=== PATIENT | male | born 1940 | race Caucasian/White ===

== ENCOUNTER 2017-06-17 10:30 | Outpatient (RCR) | payer MEDICARE, OTHER ==
[2016-07-05 13:51] VITALS: BMI 22.5
--- NOTE | 2017-04-30 14:40 | PT INITIAL EVALUATION ---
MEDICAL DIAGNOSIS: Right Hip and Lower Extremity Pain, Multiple Myeloma TREATMENT DIAGNOSIS: Right Hip and Lower Extremity Pain, Multiple Myeloma DATE OF ONSET: 04/15/17 SUBJECTIVE: Shruti Kramer" Alexander is a 76 year-old male presenting to physical therapy following onset of R leg and hip pain lasting over a 1 month that radiates down his R leg to the level of the foot. Pt reports that pain is currently rated as a 3/10 and is always present. Pain is increased with movement and decreased with rest and heat. Pain is worse at 10/10 and he frequently wears a pain relief patch on his R hip. Pain is typically in the posterior R hip but will radiate in the back of the R leg, as well as into the groin, and to the side and back or R foot. Pt is also undergoing treatment for multiple myeloma and has been undergoing chemotherapy treatment since July resulting in neuropathy in B feet>hands. Pt denies any back pain but has a history of frequent mobilization with his chiropractor. Pt reports that when the pain is really bad he noticed that his foot will drop with walking resulting in him tripping. REHAB PROBLEM LIST: Increased Pain Decreased ROM Decreased Strength Impaired Transfers Decreased Endurance Decreased Function Decreased ADL's Decreased Mobility Decreased Gait PREVIOUS MEDICAL HISTORY: See EMR OBJECTIVE: Posture: Posture significant for R thoracic scoliosis. ROM: Lumbar ROM: flexion-full with pain in R hip, ext-min/mod restrictions without pain, L SB full with pain on L side, R SB full with no pain, R rotation moderate limitations without pain, L rot full without pain. B Hip ROM: WFL Strength: B LE MMT: Hip: flexion B 5/5, ext L 4/5 R 3+/5, abd L 4+/5, R 4/5 with pain, add B 4+/5. Knee: ext: L 5/5, R 4+/5, flexion L 4+/5, R 4/5. Ankle" PF B 5/5, DF R 3+/5, L 5/5 Other Objective Findings: FACT-G: PWB: , SWB: , EWB: , FWB: , Total 104/108 ECOG Performance Status: Grade 2 ASSESSMENT: Pt shows signs and symptoms consistent with neural impingement in the posterior hip likely in the piriformis musculature resulting in decreased strength and pain as listed in the above impairments. Physical therapy is indicated to address these deficits to improve pt functioning in ADL's as well as decrease complications with ongoing oncological care. Short Term Goals In 2 weeks pt will decrease hip and back pain to <2/10 with ADL's for improved functional mobility. In 4 weeks pt will improve R LE strength to >4 /5 in all major muscle groups for improved functional ambulation, mobility and performance of ADL's In 2 months pt will maintain FACT-G score of >95 indicating maintenance of wellbeing. In 4 months pt will maintain FACT-G score of >95 indicating maintenance of wellbeing. Patient's Goals Decrease pain, improve strength and function. PLAN: Patient to be seen for Manual Therapy/STM/MET Strengthening/condition Ice/Heat Range of Motion Spinal Stabilization Ultrasound Work Hardening/Cond Stretching Iontophoresis Neuromuscular Re-ed Closed Chain Program Electrical Stim Posture/Body mechanics Gait Trg/Balance Trg Biofeedback Home Exercise Program Mech./Manual Traction Therapeutic Activities Pelvic Floor 1x/Week for 4 Months If you have any questions, comments, or concerns about this report or plan, please contact me at . Thank you, Lynette Lacy, PT, DPT, CLT MTDD
--- NOTE | 2017-05-27 13:11 | PT PLAN OF CARE ---
Physician: MATTY Lofton Patient is being seen: 1x/MO Therapist: Lynette Lacy, PT, DPT, CLT Medical Diagnosis: Right Hip and Lower Extremity Pain, Multiple Myeloma Treatment Diagnosis: Right Hip and Lower Extremity Pain, Multiple Myeloma Date of Onset: 04/15/17 Date of Initial Evaluation: 04/29/17 Date patient was last seen: 05/27/17 Number of treatments: 3 Number of cancellations/No shows: 0 INTERVENTIONS: Manual Therapy/STM/MET Strengthening/condition Ice/Heat Range of Motion Spinal Stabilization Ultrasound Work Hardening/Cond Stretching Iontophoresis Neuromuscular Re-ed Closed Chain Program Electrical Stim Posture/Body mechanics Gait Trg/Balance Trg Biofeedback Home Exercise Program Mech./Manual Traction Therapeutic Activities Pelvic Floor GOALS: In 2 weeks pt will decrease hip and back pain to <2/10 with ADL's for improved functional mobility. MET In 4 weeks pt will improve R LE strength to >4 /5 in all major muscle groups for improved functional ambulation, mobility and performance of ADL's In 2 months pt will maintain FACT-G score of >95 indicating maintenance of wellbeing. MET In 4 months pt will maintain FACT-G score of >95 indicating maintenance of wellbeing. In Progress PATIENT'S GOAL: Decrease pain, improve strength and function. Status of Patient's Goals: In Progress Patient Compliance: Excellent Prognosis: Good Reasons for continuing therapy: Lashay shows maintenance of no pain status with performance of HEP. Pt reports lingering neuropathy symptoms in feet only which was improved following exercise and balance exercises. Pt shows improved functional well-being with decreased overall side-effects with improvements in FACT-G scores. Pt continue with HEP and be evaluated in by PT in 1 month for maintenance of status. Posture: Posture significant for R thoracic scoliosis. ROM: Lumbar ROM: full without pain B Hip ROM: WFL Strength: B LE MMT: Hip: flexion B 5/5, ext L 4/5 R 4/5, abd L 4+/5, R 4/5 with pain, add B 4+/5. Knee: ext: L 5/5, R 4+/5, flexion L 4+/5, R 4/5. Ankle" PF B 5/5, DF R 3+/5, L 5/5 If you have any questions or concerns, please feel free to contact me at . Thank you, Lynette Lacy, PT, DPT, CLT MTDD
[~2017-06-17 10:30] MED LIST: ACYC-50 PO; ALLO100T70 PO; ASPI-1471 PO; ASPI81TA94 PO; BACL-1 PO; CHLO25TA19 PO; CYCL50CA PO; DEX4 PO; DEXA2TAB7 PO; LEVO500T83 PO; LORA-1455 PO; LOVA20TA99 PO; METF-410 PO; MULT-27 PO; MULT1TAB64 PO; ONDA8TAB94 PO; OXYGENHOME INH; PYRI100T57 PO; TRIA15CR40 TP
--- NOTE | 2017-06-17 13:26 | PT PLAN OF CARE ---
Physician: MATTY Lofton Patient is being seen: 2x/MO Therapist: Lynette Lacy, PT, DPT, CLT Medical Diagnosis: Right Hip and Lower Extremity Pain, Multiple Myeloma Treatment Diagnosis: Right Hip and Lower Extremity Pain, Multiple Myeloma Date of Onset: 04/15/17 Date of Initial Evaluation: 04/29/17 Date patient was last seen: 06/17/17 Number of treatments: 4 Number of cancellations/No shows: 0 INTERVENTIONS: Manual Therapy/STM/MET Strengthening/condition Ice/Heat Range of Motion Spinal Stabilization Ultrasound Work Hardening/Cond Stretching Iontophoresis Neuromuscular Re-ed Closed Chain Program Electrical Stim Posture/Body mechanics Gait Trg/Balance Trg Biofeedback Home Exercise Program Mech./Manual Traction Therapeutic Activities Pelvic Floor GOALS: In 2 weeks pt will decrease hip and back pain to <2/10 with ADL's for improved functional mobility. MET In 4 weeks pt will improve R LE strength to >4 /5 in all major muscle groups for improved functional ambulation, mobility and performance of ADL's. MET In 2 months pt will maintain FACT-G score of >95 indicating maintenance of wellbeing. MET In 4 months pt will maintain FACT-G score of >95 indicating maintenance of wellbeing. MET PATIENT'S GOAL: Decrease pain, improve strength and function. Status of Patient's Goals: 4/4 Goals MET Patient Compliance: Excellent Prognosis: Good Reasons for discharge from therapy: Williams Bahena" is to discharge from physical therapy at this time secondary to completion of oncological treatment as well as completion of 4/4 functional therapy goals. Pt is no longer having any back pain. At this time pt feels that he is back to his baseline function with additional improvements in strength of R ankle DF with neural return. Lashay will continue with his HEP to maintain functional status through survivorship. Posture: Posture significant for R thoracic scoliosis. ROM: Lumbar ROM: full without pain B Hip ROM: WFL Strength: B LE MMT: Hip: flexion B 5/5, ext B 5/5, abd B 4+/5, add B 5/5. Knee: ext: B 5/5, flexion: B 4+/5. Ankle: PF: B 5/5, DF R 4/5, L 5/5 Outcome Measures: FACT-G: PWB: , SWB: , EWB: , FWB: , Total : 107/108 If you have any questions or concerns, please feel free to contact me at . Thank you, Lynette Lacy, PT, DPT, CLT MTDD
[2017-06-17] MEDS ORDERED: LENA10CA4 PO ×2 (14:11→14:23)
== END 2017-06-17 13:48 | disposition home or self-care (01) ==
LOC: PT 10:30
PROVIDERS: ATTEND Nurse Practitioner Family
DX: M25.551 Pain in right hip (principal); M62.81 Muscle weakness (generalized); E88.09 Other disorders of plasma-protein metabolism, not elsewhere classified; C90.02 Multiple myeloma in relapse; D64.9 Anemia, unspecified
CPT/HCPCS: 97162

== ENCOUNTER → 2017-07-29 | Outpatient (CLI) | payer MEDICARE, OTHER ==
[2016-07-05 13:51] VITALS: BMI 22.5
[~2017-07-29] MED LIST changes: +LENA10CA4 PO; +TRAM-627 PO
== END ==
LOC: LAB 08:30
PROVIDERS: ATTEND Internal Medicine
DX: E78.00 Pure hypercholesterolemia, unspecified (principal); E11.9 Type 2 diabetes mellitus without complications
CPT/HCPCS: 36415; 82465; 83036; 83718; 84478

== ENCOUNTER 2017-08-26 09:35 | Outpatient (RCR) | payer MEDICARE, OTHER ==
[2016-07-05 13:51] VITALS: Ht 182.9 cm; Wt 84.4 kg
[2017-06-10 10:25] VITALS: BP 111/63
--- NOTE | 2017-06-10 11:13 | ONC Progress Note - NP.Halsey ---
Patient History Date of Service Jun 10, 2017 Reason For Visit/HPI Patient is seen in the clinic today for follow-up of his multiple myeloma. Patient is currently on CyBorD cycle 12 today 15 today. He receives Zometa on . Patient previously reported that he was having increased numbness and tingling in his lower extremities bilateral but today reports that this is improved as he increases his fluid intake. Patient has pain in his right hip off and on but as long as he continues to exercise he reports that it feels relatively well. He denies numbness and tingling in his right hand today as he previously has had. Patient was encouraged to start vitamin B 6 100 mg twice a day and received medication but has not started it yet. I did review instructions with him today. Overall he is feeling relatively well. Labs were reviewed with Dr. Damico today and I believe it is time to consider maintenance therapy as patient has relatively plateaued and his kappa lambda light chain is in the normal limit. Problem List (1) Multiple myeloma Oncology History he patient is a 76-year-old male who had history of emphysema and hypercholesterolemia. He had a normal CBC in July 2014. The patient was found lately to have anemia. His blood count on April 15, 2016 showed white count 7.1, hemoglobin 10.9, hematocrit 33.3%, platelets 272,000 and MCV normal at 90. His serum creatinine was 1.71 at that time and his glomerular filtration rate was 39 mL/min. Soluble transferrin receptor assay was normal at 4.3. Serum iron was 62. TIBC was 261. Iron saturation 23.8. Ferritin was 139. So, all his iron studies were within the normal range. EPO level was mildly elevated at 47; red cell folate was normal at 1252; serum folate was normal at more than 22. B12 was 360. Methylmalonic acid assay was normal at 0.25. Haptoglobin was high at 287. Repeat CBC showed hemoglobin 11.2, hematocrit 33, platelets 246,000, white count 7.3. Serum protein electrophoresis showed monoclonal protein of 1.95, but unfortunately no immunofixation was done. Bone marrow aspiration biopsy done on June 25, 2016 came back positive for lambda restricted plasmocytosis compatible with plasma cell myeloma with 20 to 40% of the core bone marrow biopsy positive for plasma cells. FISH for myeloma came back positive for 4p-, +5, 11q+, -13, 14q-, 16q-, and 17 adrian+. Skeletal bone survey done on June 25, 2016 did reveal multiple lucencies in the greater trochanter of the left hip and a void lucency seen on the lateral view of the skull in the frontal region. The patient started treatment with CyBorD chemotherapy on July 23, 2016 and continues treatment. Patient continues to have a good response of his M spike, monoclonal protein peak with a decrease every month. Most recent SPEP is 0.4 g/ dL of the total is 0.59 g/dL Her free light chain is within normal limits, lambda free light chain within normal limits, K:L ratio within normal limits. Medical History Family History: Diabetes mellitus (DM) FATHER, , Age:76 MOTHER, Age:98 FH: Alzheimers disease SISTER, Age:75 FH: Parkinson's disease BROTHER, Age:77 FH: chronic lung disease requiring oxygen BROTHER, Age:73 (black lung, title examiner) FH: congestive heart failure MOTHER, Age:98 FH: gallbladder disease BROTHER, Age:77 SISTER SISTER FH: macular degeneration MOTHER, Age:98 Psychosocial History Social History The patient is with four children, three living. 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 He smokes about one pack a day for sixty years. He seldom drinks, once or twice per year. He denies any abuse of illicit drugs Smoking History: No (1/2 - 1 PPD FOR 60 YRS) Smoking Status: Former Smoker Exposure to Second Hand Smoke?: Yes Medications and Allergies Active Scripts Pyridoxine Hcl (VITAMIN B-6) 100 Mg Tablet, 100 MG PO BID, #60 TAB Prov:VIVEK NICHOLAS [facility]-, ONC 06/02/17 Dexamethasone 4 Mg Tab (DEXAMETHASONE 4 MG TAB) 4 Mg Tab, 4 TAB PO on days 1,8, 15,&22, #40 TAB 3 Refills 40 mg po on days 1, 8, 15, and 22 Prov:VIVEK NICHOLASP-, ONC 05/27/17 Cyclophosphamide (Cyclophosphamide) 50 Mg Capsule, 600 MG PO QWEEK, #48 CAPSULE 3 Refills Prov:VIVEK NICHOLAS [facility]-, ONC 05/27/17 Metformin Hcl (METFORMIN HCL) 500 Mg Tablet, 1 TAB PO QDAY, #90 TAB 3 Refills Prov:GRISEL REID MD 05/05/17 Baclofen (BACLOFEN) 10 Mg Tablet, 10 MG PO TID for Muscle Relaxant, #15 TAB Prov:VIVEK NICHOLAS [employer], ONC 04/15/17 Triamcinolone Acetonide 0.1% Cr 15 Gm Tube (TRIAMCINOLONE ACETONIDE 0.1% CREAM) 15 Gm Cream..g., 1 YOLY TP BID Y for Psoriasis, #1 TUBE 5 Refills Prov:GRISEL REID MD 03/18/17 Allopurinol (ALLOPURINOL) 100 Mg Tablet, 1 TAB PO QDAY, #30 TAB 6 Refills Prov:GRISEL REID MD 02/11/17 Acyclovir (ACYCLOVIR) 400 Mg Tablet, 1 TAB PO BID, #60 TAB 6 Refills Prov:GRISEL REID MD 02/11/17 Lorazepam (ATIVAN) 0.5 Mg Tablet, 1 TAB PO Q4-6H Y for NAUSEA for 30 Days, TAB Prov:GRISEL REID MD 02/11/17 Ondansetron (ZOFRAN ODT) 8 Mg Tab.rapdis, 1 TAB PO Q8H, #30 TAB 1 Refill Prov:GRISEL REID MD 02/11/17 Reported Medications Oxygen (OXYGEN) Inha, 3 L INH cont 10/22/16 Lovastatin (LOVASTATIN) 20 Mg Tablet, 1 TAB PO QDAY 07/09/16 Multivitamin (MULTI VITAMIN DAILY) 1 Each Tablet, 1 TAB PO DAILY 07/09/16 Aspirin (ASPIR 81) 81 Mg Tablet., 1 TAB PO QDAY, TAB 07/09/16 Allergies: Coded Allergies: No Known Drug Allergies (Unverified , 04/06/17) Review of System/Physical Exam Review of Systems All Systems Reviewed/Normal: Yes, Except as Noted Hematologic: Positive for Fatigue, Positive for Weakness Musculoskeletal: Positive for Muscle Pain, Positive for Bone Pain (see above) Neurologic: Tingling of Hands, Numbness of Feet, Tingling of Feet Physical Exam Vital Signs Temperature: 98.6 Pulse: 88 BP Systolic: 111 BP Diastolic: 63 Respiratory Rate: 16 O2 SAT: 95 O2 Delivery: Height (inches) 72.00 Weight lb: 164 Weight oz: 6.0 Weight Kg (Ramiro): [id number] Pain: 0 ECOG Score: 1 General: Stable, Well Developed, Well Nourished, Not In Acute Distress HEENT: No Trauma, No Conjunctivitis, No Icterus, No Mucositis, No Oral Thrush Neck: Supple Lungs: Clear to Auscultation Heart: Regular Rate, Regular Rhythm, No Gallops Abdomen: Soft and Nontender, No Hepatosplenomegaly, No Masses Extremities: No Cyanosis, No Clubbing, No Edema Lymphadenopathy: No Cervical Psychiatric: Mood appears normal, Affect appears normal Skin: No Skin Rashes, No Bruising, No Purpura Diagnostic Studies Diagnostic Studies Laboratory Laboratory Tests 06/10/17 10:24 Laboratory Tests 02/10/17 00:00: Neutrophils # 1.5, Hematocrit 47.3, Hemoglobin 15.5, Platelet Count 35.0, White Blood Count 5.1 06/10/17 10:24: Hematocrit 39.1, Hemoglobin 13.5, Platelet Count 196, White Blood Count 7.3, Neutrophils (%) (Auto) 90.3, Lymphocytes (%) (Auto) 4.7, Neutrophils # (Auto) 6.6, Lymphocytes # (Auto) 0.3, Sodium Level 138, Potassium Level 4.7, Chloride Level 103, Carbon Dioxide Level 23, Blood Urea Nitrogen 20, Creatinine 1.20, Glomerular Filtration Rate Calc 59.2, Random Glucose 131, Calcium Level 9.1, Total Bilirubin 0.6, Aspartate Amino Transf (AST/SGOT) 40, Alanine Aminotransferase (ALT/SGPT) 48, Alkaline Phosphatase 88, Total Protein 6.8, Albumin 4.1 Assessment and Plan Assessment & Plan 1. Multiple myeloma with IgG lambda monoclonal protein. Initial level of the monoclonal protein was 1.9 g/dL. Beta 2 microglobulin was 4.7. [place] free light chain was normal, but lambda free light chain was high at 245. Skeletal bone survey showed multiple lucencies on the greater trochanter of the hip and skull. Bone marrow aspiration biopsy done June 25, 2016 revealed 20% to 40% lambda restricted plasmacytosis consistent with multiple myeloma. FISH for myeloma came back positive for 4p- +5, 11Q+, -13, 14q-, 16q- and 17cen+. Patient started chemotherapy with CyBorD on July 23, 2016. He is tolerating treatment very well. His monoclonal protein was IgG lambda, dropped from 1.95, and currently the M spike is at 0.40 gm/dL out of a total of 0.59 with continued decrease noted. He continues to show response to his current treatment. He is also maintained on Zometa every four weeks which she receives on day 8 of each cycle. His last dose was 06/02/2017 He will continue with the same treatment until complete remission or plateau phase, then after that a will start to put him on maintenance therapy with Revlimid oral pills. He has developed some neuropathy in his feet bilaterally which is increasing and then occasionally is reported to have resolved. He was instructed to start Vitamin B6 100mg bid. His creatinine was increased recently but improved and normal today at 1.20. 2. Skin reaction to Velcade therapy. Patient was offered the IV formulation of the drug, but it has to be given through either a central port and PICC line , but patient declined to have any central line, and he prefers to continue until we will use Revlimid in the future. 3. 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 Patient has followed with primary care with iron studies which appear to be unremarkable 4. Chronic obstructive pulmonary disease on home oxygen 5. Left hip and pelvic pain currently being treated with ibuprofen had increased over the last 2 weeks. This is improved today 6. Right hip pain and lower extremity pain. This pain comes and goes and previously has been worked up with diagnostic study which was unremarkable 7. Rising creatinine level. Creatinine level is normal at 1.20. Multiple myeloma panel is reviewed today with normal kappa and lambda light chains. PLAN 1. Chemotherapy with CyBorD cycle 12 day 12 today. 2. Patient to return weekly with CBC, chem panel, uric acid prior to each Velcade therapy next week to complete cycle 12 of treatment. 3. Continue Zometa every month. Last dose completed on 06/02/2017 4. Patient to follow with Dr. Damico in one week to discuss maintenance therapy. I personally spent a total of 20 minutes. Of that 20 minutes was counseling/ coordination of patient's care. See my note above for details. VIVEK NICHOLAS [employer], ONC Jun 10, 2017 11:13
[2017-06-17 09:20] VITALS: BP 108/71
[2017-06-17 09:32] LABS: PLATELET COUNT, AUTOMATED 204 K/uL (150-450)
--- NOTE | 2017-06-17 19:48 | ONCOLOGY FOLLOW UP NOTE ---
EVENT DATE: June 17, 2017 DIAGNOSES 1. Multiple myeloma. 2. Normochromic, normocytic anemia. 3. Hypercholesterolemia. 4. Chronic obstructive pulmonary disease. CHIEF COMPLAINT Patient is here today for followup of his multiple myeloma on chemotherapy with CyBorD. ONCOLOGY HISTORY The patient is a 76-year-old male who had history of emphysema and hypercholesterolemia. He had a normal CBC in July 2014. The patient was found lately to have anemia. His blood count on April 15, 2016 showed white count 7.1, hemoglobin 10.9, hematocrit 33.3%, platelets 272,000 and MCV normal at 90. His serum creatinine was 1.71 at that time and his glomerular filtration rate was 39 mL/min. Soluble transferrin receptor assay was normal at 4.3. Serum iron was 62. TIBC was 261. Iron saturation 23.8. Ferritin was 139. So, all his iron studies were within the normal range. EPO level was mildly elevated at 47; red cell folate was normal at 1252; serum folate was normal at more than 22. B12 was 360. Methylmalonic acid assay was normal at 0.25. Haptoglobin was high at 287. Repeat CBC showed hemoglobin 11.2, hematocrit 33, platelets 246,000, white count 7.3. Serum protein electrophoresis showed monoclonal protein of 1.95, but unfortunately no immunofixation was done. Bone marrow aspiration biopsy done on June 25, 2016 came back positive for lambda restricted plasmocytosis compatible with plasma cell myeloma with 20 to 40% of the core bone marrow biopsy positive for plasma cells. FISH for myeloma came back positive for 4p-, +5, 11q+, -13, 14q-, 16q-, and 17 adrian+. Skeletal bone survey done on June 25, 2016 did reveal multiple lucencies in the greater trochanter of the left hip and a void lucency seen on the lateral view of the skull in the frontal region. The patient started treatment with CyBorD chemotherapy on July 23, 2016. Patient finished his chemotherapy with CyBorD on June 17, 2017, and he started maintenance Revlimid therapy June 2017. HISTORY OF PRESENT ILLNESS Patient is here today for followup of his multiple myeloma on chemotherapy with CyBorD. He is doing fine currently, except for having pain in the legs with charleyhorses frequently, but other than that he is doing really very well. PAST MEDICAL HISTORY 1. Hypercholesterolemia. 2. Emphysema. 3. Tobacco abuse. 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 5. Tinnitus. 6. Histor of fractured femur. PAST SURGICAL HISTORY 1. Bilateral cataract surgery 2002. 2. In 2014, foreign body removed from the foot. 3. Double hernia repair in 2001. 4. Fracture repair of the femur in 1956. 5. In 2004, he had fracture of the right arm. FAMILY HISTORY Negative for cancer or blood diseases. SOCIAL HISTORY The patient is with four children, three living. 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 He smokes about one pack a day for sixty years. He seldom drinks, once or twice per year. He denies any abuse of illicit drugs. CURRENT MEDICATIONS 1. Lovastatin 20 mg daily. 2. Baby aspirin 81 mg daily. ALLERGIES No known drug allergies. REVIEW OF SYSTEMS CONSTITUTIONAL: No appetite or weight change. No fever, chills or sweating. No recent infection. HEENT: Ears: No tinnitus or hearing problem. Nose: No nasal discharge or epistaxis. Throat: No sore throat or mouth ulcers. Eyes: No diplopia or visual changes. RESPIRATORY: He has cough and expectoration getting better with antibiotic. He is also short winded and on oxygen currently. CARDIOVASCULAR: No chest pain, orthopnea, or paroxysmal nocturnal dyspnea (PND) . No edema. No palpitations. GASTROINTESTINAL: Patient has constipation under control with stool softener. GENITOURINARY: No hematuria or dysuria. MUSCULOSKELETAL: Patient has charleyhorses in the legs, but other than that he is doing very well. NEUROLOGICAL: Patient has complete resolution of his neuropathy. HEMATOLOGIC/LYMPHATIC: He is weak, tired and fatigued. No enlarged lymph nodes. SKIN: No skin rash or lumps. PSYCHIATRIC: No anxiety or depression. PHYSICAL EXAMINATION GENERAL: Looks stable. Well-developed, well-nourished, and in no acute distress. VITAL SIGNS: Blood pressure 108/71, pulse 64 per minute, temperature 97.5, pulse ox 94% on room air. HEENT: Head: Atraumatic. No sinus tenderness to palpation. Eyes: No icterus or conjunctivitis. Mouth and throat: No oral thrush or mucositis. NECK: Supple. No cervical or supraclavicular lymphadenopathy. LUNGS: Clear to auscultation and percussion bilaterally. HEART: Regular rate and rhythm. No gallops, murmurs, clicks or rubs. ABDOMEN: Soft and lax. No tenderness. No hepatosplenomegaly. No masses. EXTREMITIES: There is minimal ankle edema. LYMPHATICS: No peripheral lymphadenopathy. NEUROLOGICAL: Conscious, alert and oriented times three. No focal motor or sensory deficits. PSYCHIATRIC: Mood and affect appear normal. SKIN: No skin rash, bruise or purpuric eruption. DIAGNOSTIC DATA CBC showed a white count of 6.3, hemoglobin 14.3, hematocrit 40.8, platelets 104 ,000. Chem panel totally normal, except AST 38. Hines free light chain is normal at 0.85. Lambda free light chain is normal at 1.69. IgG is 579, IgM 25 and IgA 33. Beta-2 microglobulin is 2.5. Serum protein immunoelectrophoresis showed monoclonal band of IgG lambda at 0.4 g/dL. ASSESSMENT 1. Multiple myeloma with IgG lambda monoclonal protein. Initial level was 1.9 g/dL. Beta-2 microglobulin was 4.7. Hines free light chain was normal, while lambda free light chain was high at 245. Skeletal bone survey showed multiple lucencies on the greater trochanter of the hip and skull. Bone marrow aspiration biopsy on June 25, 2016 revealed 20% to 40% lambda restricted plasmacytosis consistent with multiple myeloma. FISH for multiple myeloma came back positive for 4p-, +5, 11q+, -13, 14q-, 16q- and 17cen+. Patient started chemotherapy with CyBorD on July 23, 2016, and he completed 12 courses of CyBorD on June 17, 2017. His current level of monoclonal protein of IgG lambda is down from 1.9 and currently 0.4. His lambda free light chain dropped from 245 and currently it is 1.69. am planning to start maintenance Revlimid therapy at 10 mg daily. In the meantime, we will continue the Zometa infusions every month for a total of two years. I am planning to see him again in a month from now with CBC, chem panel, LDH, uric acid and myeloma profile. 2. Anemia due to multiple myeloma, recovered completely. Current hemoglobin is 14.3 g/dL. 3. Chronic obstructive pulmonary disease on home oxygen. PLAN 1. Stop CyBorD chemotherapy. 2. Start Revlimid 10 mg daily. 3. Patient to return in one month with CBC, chem panel, LDH, uric acid and myeloma profile. 4. Continue Zometa infusions every month. 5. Patient is to contact us for any new concerns or complaints. MTDD
--- NOTE | 2017-07-01 10:20 | ONC Progress Note - NP.Halsey ---
Patient History Date of Service Jul 01, 2017 Reason For Visit/HPI Patient is seen in the clinic today for education prior to starting oral Revlimid for his multiple myeloma. Patient has completed CyBorD 12 cycles. He will continue on Zometa every 28 days for at least 2 years. Labs drawn today to include CBC and CMP as a baseline. Patient will have multiple myeloma panel drawn approximately one month after starting Revlimid. Consent was signed today. Patient is complaining today of increased pain in his right hip with radiating pain down to his ankle. He denies any trauma to the area. He has been using ibuprofen and heat with minimal resolution. Patient denies any areas of warmth or tenderness to suggest a venous thrombosis. Patient previously used a muscle relaxant and reports that possibly this helped with his discomfort. Unfortunately I recall that patient had a somewhat psychotic break through and I question if this was related to the muscle relaxant. Patient has not tried ulltram and we will try this 1st. He does have physical therapy exercises which help. Previous ultrasound and x-ray have been unremarkable. Oncology History The patient is a 76-year-old male who had history of emphysema and hypercholesterolemia. He had a normal CBC in July 2014. The patient was found lately to have anemia. His blood count on April 15, 2016 showed white count 7.1, hemoglobin 10.9, hematocrit 33.3%, platelets 272,000 and MCV normal at 90. His serum creatinine was 1.71 at that time and his glomerular filtration rate was 39 mL/min. Soluble transferrin receptor assay was normal at 4.3. Serum iron was 62. TIBC was 261. Iron saturation 23.8. Ferritin was 139. So, all his iron studies were within the normal range. EPO level was mildly elevated at 47; red cell folate was normal at 1252; serum folate was normal at more than 22. B12 was 360. Methylmalonic acid assay was normal at 0.25. Haptoglobin was high at 287. Repeat CBC showed hemoglobin 11.2, hematocrit 33, platelets 246,000, white count 7.3. Serum protein electrophoresis showed monoclonal protein of 1.95, but unfortunately no immunofixation was done. Bone marrow aspiration biopsy done on June 25, 2016 came back positive for lambda restricted plasmocytosis compatible with plasma cell myeloma with 20 to 40% of the core bone marrow biopsy positive for plasma cells. FISH for myeloma came back positive for 4p-, +5, 11q+, -13, 14q-, 16q-, and 17 adrian+. Skeletal bone survey done on June 25, 2016 did reveal multiple lucencies in the greater trochanter of the left hip and a void lucency seen on the lateral view of the skull in the frontal region. The patient started treatment with CyBorD chemotherapy on July 23, 2016 and completed treatment on 06/17/2017. He will continue with Zometa monthly 2 years. Maintenance Revlimid started July 01, 2017 Medical History Family History: Diabetes mellitus (DM) FATHER, , Age:76 MOTHER, Age:98 FH: Alzheimers disease SISTER, Age:75 FH: Parkinson's disease BROTHER, Age:77 FH: chronic lung disease requiring oxygen BROTHER, Age:73 (black lung, polygraph examiner) FH: congestive heart failure MOTHER, Age:98 FH: gallbladder disease BROTHER, Age:77 SISTER SISTER FH: macular degeneration MOTHER, Age:98 Psychosocial History Social History The patient is with four children, three living. 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 He smokes about one pack a day for sixty years. He seldom drinks, once or twice per year. He denies any abuse of illicit drugs Smoking History: No (1/2 - 1 PPD FOR 60 YRS) Smoking Status: Former Smoker Exposure to Second Hand Smoke?: Yes Medications and Allergies Active Scripts Tramadol Hcl (ULTRAM) 50 Mg Tablet, 50-100 MG PO Q4-6H, #60 TAB 1 Refill Prov:VIVEK NICHOLAS DATA SECURITY COORDINATOR-BC, ONC 07/01/17 Pyridoxine Hcl (VITAMIN B-6) 100 Mg Tablet, 100 MG PO BID, #60 TAB Prov:VIVEK NICHOLAS [facility], ONC 06/02/17 Metformin Hcl (METFORMIN HCL) 500 Mg Tablet, 1 TAB PO QDAY, #90 TAB 3 Refills Prov:GRISEL REID MD 05/05/17 Triamcinolone Acetonide 0.1% Cr 15 Gm Tube (TRIAMCINOLONE ACETONIDE 0.1% CREAM) 15 Gm Cream..g., 1 YOLY TP BID Y for Psoriasis, #1 TUBE 5 Refills Prov:GRISEL REID MD 03/18/17 Acyclovir (ACYCLOVIR) 400 Mg Tablet, 1 TAB PO BID, #60 TAB 6 Refills Prov:GRISEL REID MD 02/11/17 Lorazepam (ATIVAN) 0.5 Mg Tablet, 1 TAB PO Q4-6H Y for NAUSEA for 30 Days, TAB Prov:GRISEL REID MD 02/11/17 Ondansetron (ZOFRAN ODT) 8 Mg Tab.rapdis, 1 TAB PO Q8H, #30 TAB 1 Refill Prov:GRISEL REID MD 02/11/17 Reported Medications Lenalidomide (REVLIMID) 10 Mg Capsule, 10 MG PO DAILY, CAPSULE 06/17/17 Oxygen (OXYGEN) Inha, 3 L INH cont 10/22/16 Lovastatin (LOVASTATIN) 20 Mg Tablet, 1 TAB PO QDAY 07/09/16 Multivitamin (MULTI VITAMIN DAILY) 1 Each Tablet, 1 TAB PO DAILY 07/09/16 Aspirin (ASPIR 81) 81 Mg Tablet.dr, 1 TAB PO QDAY, TAB 07/09/16 Discontinued Reported Medications Lenalidomide (REVLIMID) 10 Mg Capsule, 10 MG PO DAILY for Multiple Myeloma for 28 Days, #28 CAPSULE 06/17/17 Allergies: Coded Allergies: No Known Drug Allergies (Unverified , 04/06/17) Review of System/Physical Exam Review of Systems All Systems Reviewed/Normal: Yes, Except as Noted Gastrointestinal: Constipation (uses a stool softener) Hematologic: Positive for Fatigue, Positive for Weakness, Positive for Other ( patient reports that he is tired) Musculoskeletal: Positive for Muscle Pain (occasional muscle pains) Physical Exam Vital Signs Temperature: 97.5 Pulse: 64 BP Systolic: 108 BP Diastolic: 71 Respiratory Rate: 18 O2 SAT: 94 O2 Delivery: Height (inches) 72.00 Weight lb: 164 Weight oz: 6.0 Weight Kg (Ramiro): [id number] Pain: 1 ECOG Score: 1 General: Stable, Well Developed, Well Nourished, Not In Acute Distress, Other ( patient does have some memory loss and occasional difficulty with word retrieval this is stable) HEENT: No Trauma Neck: Supple Lungs: Clear to Auscultation Heart: Regular Rate, Regular Rhythm Abdomen: Soft and Nontender, No Hepatosplenomegaly Extremities: No Cyanosis, No Clubbing, No Edema, Other (no warmth or tender areas on the right lower extremity. Homans sign is negative. Patient has pain with manipulation in the hip and with ambulation.) Psychiatric: Mood appears normal, Affect appears normal Skin: No Skin Rashes, No Bruising, No Purpura Chemo Education Chemotherapy Education: Patient is seen today for education regarding chemotherapy with oral Revlimid 10 mg tab taken daily for maintenance therapy for his multiple myeloma The treatment schedule and associated appointments were discussed and reviewed. A print out will be given to the patient. The intent for treatment is maintenance therapy. Consent for treatment was completed prior to receiving treatment. Mechanism of action and associated side effects of Revlamid were discussed. The patient is at increased risk for infection related to bone marrow suppression with chemotherapy. Signs and symptoms of infection were reviewed with recommendation of calling the clinic if fever, chills or a temperature of 100.5 or greater is experienced. Regular monitoring of blood work will be completed. The patient is at increased risk of nausea and vomiting related to chemotherapy. Home antiemetics were reviewed with a schedule of when to take them. Increased bowel movements or diarrhea may occur. The use of Imodium was reviewed and encouraged to have on hand. Dehydration from decreased intake , nausea or diarrhea could also occur. Side effects of dehydration were reviewed and hydration will be given as needed. Self-care strategies to minimize any symptoms from treatment were taught and written material was given for further review at home. The strategies included: dietary modifications for nausea, diarrhea, fatigue and/or mouth sores, exercise and resting for fatigue, hydration for dehydration, and skin care for dry skin reactions. In addition, safety measures for oral chemotherapy to prevent teratogenic side effects to others was reviewed in detail to include good hand washing, double flushing, and what to do during sexual intercourse. Patient currently has Compazine and Zofran at home if he experiences nausea. If patient experiences increased neuropathy in his hands and toes he verbalizes understanding that he should contact provider. If he experiences any acute rash or shortness of breath he will contact provider or go to the emergency room. The above information will be reviewed with the patient and family members as needed. Assessment and Plan Assessment & Plan 1. Multiple myeloma with IgG lambda monoclonal protein. Initial level was 1.9 g/dL. Beta-2 microglobulin was 4.7. Biron free light chain was normal, while lambda free light chain was high at 245. Skeletal bone survey showed multiple lucencies on the greater trochanter of the hip and skull. Bone marrow aspiration biopsy on June 25, 2016 revealed 20% to 40% lambda restricted plasmacytosis consistent with multiple myeloma. FISH for multiple myeloma came back positive for 4p-, +5, 11q+, -13, 14q-, 16q- and 17cen+. Patient started chemotherapy with CyBorD on July 23, 2016, and he completed 12 courses of CyBorD on June 17, 2017. His current level of monoclonal protein of IgG lambda is down from 1.9 and currently 0.4. His lambda free light chain dropped from 245 and currently it is 1.69. He will start maintenance Revlimid therapy at 10 mg daily. He will continue Zometa infusions every month for a total of two years. He will follow with Dr. Damico in a month from now with CBC, chem panel, LDH, uric acid and myeloma profile. 2. Skin reaction to Velcade therapy. This will resolve with discontinuation of Velcade 3. 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 Patient has followed with primary care with iron studies which appear to be unremarkable. HGb is monitored closely. 4. Chronic obstructive pulmonary disease on home oxygen 5. Right leg and hip pain. Previous diagnostic studies to include x-ray and ultrasound have been unremarkable. Patient is currently using ibuprofen with minimal relief. I will try Ulltram and send a prescription to [facility] pharmacy. PLAN 1. Education regarding Revlimid 10 mg tab to be taken daily completed. 2. Patient to return monthly with CBC, chem panel, uric acid prior and Zometa 3. Continue Zometa every month. Last dose completed on 06/02/2017 4. Patient to call if he has questions or concerns I personally spent a total of 30 minutes. Of that 30 minutes was counseling/ coordination of patient's care. See my note above for details. VIVEK NICHOLAS DATA SECURITY COORDINATOR-BC, ONC Jul 01, 2017 10:20
[2017-07-01 10:24] VITALS: BP 155/90
[2017-07-01 10:25] VITALS: BP 117/83
[2017-07-01 10:27] LABS: PLATELET COUNT, AUTOMATED 220 K/uL (150-450)
[2017-07-01] MEDS: NS(*) 0.9% 100 ML BAG 100 ML IVPB PRN (11:19)
[2017-07-08 10:27] LABS: PLATELET COUNT, AUTOMATED 195 K/uL (150-450)
[2017-07-08 10:28] VITALS: BP 123/74
[2017-07-15 10:20] LABS: PLATELET COUNT, AUTOMATED 175 K/uL (150-450)
--- NOTE | 2017-07-15 11:21 | ONC Progress Note - NP.Halsey ---
Patient History Date of Service Jul 15, 2017 Reason For Visit/HPI Patient is seen in the clinic today for follow-up of his multiple myeloma. He is currently taking oral Revlimid 10mg daily for his multiple myeloma. He has completed CyBorD 12 cycles. He will continue on Zometa every 28 days for a full 2 years. Labs drawn today to include CBC and CMP and multiple myeloma panel. Overall patient is tolerating treatment without difficulty. He denies any nausea or vomiting, diarrhea or constipation. He continues to have occasional episodes of neuropathy in his right arm and has pain in his right hip area that comes and goes. He did a trial of using tramadol but feels that it does not provide any relief. He will go back to using ibuprofen. He is scheduled to follow with physical therapy weekly 4 weeks. He is seen alone in the clinic today. Problem List (1) Multiple myeloma (2) Hip pain, left (3) Leg pain, right Oncology History The patient is a 76-year-old male who had history of emphysema and hypercholesterolemia. He had a normal CBC in July 2014. The patient was found lately to have anemia. His blood count on April 15, 2016 showed white count 7.1, hemoglobin 10.9, hematocrit 33.3%, platelets 272,000 and MCV normal at 90. His serum creatinine was 1.71 at that time and his glomerular filtration rate was 39 mL/min. Soluble transferrin receptor assay was normal at 4.3. Serum iron was 62. TIBC was 261. Iron saturation 23.8. Ferritin was 139. So, all his iron studies were within the normal range. EPO level was mildly elevated at 47; red cell folate was normal at 1252; serum folate was normal at more than 22. B12 was 360. Methylmalonic acid assay was normal at 0.25. Haptoglobin was high at 287. Repeat CBC showed hemoglobin 11.2, hematocrit 33, platelets 246,000, white count 7.3. Serum protein electrophoresis showed monoclonal protein of 1.95, but unfortunately no immunofixation was done. Bone marrow aspiration biopsy done on June 25, 2016 came back positive for lambda restricted plasmocytosis compatible with plasma cell myeloma with 20 to 40% of the core bone marrow biopsy positive for plasma cells. FISH for myeloma came back positive for 4p-, +5, 11q+, -13, 14q-, 16q-, and 17 adrian+. Skeletal bone survey done on June 25, 2016 did reveal multiple lucencies in the greater trochanter of the left hip and a void lucency seen on the lateral view of the skull in the frontal region. The patient started treatment with CyBorD chemotherapy on July 23, 2016 and completed treatment on 06/17/2017. He will continue with Zometa monthly 2 years. Maintenance Revlimid 10 mg tablet daily started July 01, 2017 Medical History Family History: Diabetes mellitus (DM) FATHER, , Age:76 MOTHER, Age:98 FH: Alzheimers disease SISTER, Age:75 FH: Parkinson's disease BROTHER, Age:77 FH: chronic lung disease requiring oxygen BROTHER, Age:73 (black lung, appeals examiner) FH: congestive heart failure MOTHER, Age:98 FH: gallbladder disease BROTHER, Age:77 SISTER SISTER FH: macular degeneration MOTHER, Age:98 Psychosocial History Social History The patient is with four children, three living. 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 He smokes about one pack a day for sixty years. He seldom drinks, once or twice per year. He denies any abuse of illicit drugs Smoking History: No (2 - PPD FOR 60 YRS) Smoking Status: Former Smoker Exposure to Second Hand Smoke?: Yes Medications and Allergies Active Scripts Tramadol Hcl (ULTRAM) 50 Mg Tablet, 50-100 MG PO Q4-6H, #60 TAB 1 Refill Prov:VIVEK NICHOLAS [facility], ONC 07/01/17 Pyridoxine Hcl (VITAMIN B-6) 100 Mg Tablet, 100 MG PO BID, #60 TAB Prov:VIVEK NICHOLAS [facility], ONC 06/02/17 Metformin Hcl (METFORMIN HCL) 500 Mg Tablet, 1 TAB PO QDAY, #90 TAB 3 Refills Prov:GRISEL REID MD 05/05/17 Triamcinolone Acetonide 0.1% Cr 15 Gm Tube (TRIAMCINOLONE ACETONIDE 0.1% CREAM) 15 Gm Cream..g., 1 YOLY TP BID Y for Psoriasis, #1 TUBE 5 Refills Prov:GRISEL REID MD 03/18/17 Acyclovir (ACYCLOVIR) 400 Mg Tablet, 1 TAB PO BID, #60 TAB 6 Refills Prov:GRISEL REID MD 02/11/17 Lorazepam (ATIVAN) 0.5 Mg Tablet, 1 TAB PO Q4-6H Y for NAUSEA for 30 Days, TAB Prov:GRISEL REID MD 02/11/17 Ondansetron (ZOFRAN ODT) 8 Mg Tab.rapdis, 1 TAB PO Q8H, #30 TAB 1 Refill Prov:GRISEL REID MD 02/11/17 Reported Medications Lenalidomide (REVLIMID) 10 Mg Capsule, 10 MG PO DAILY, CAPSULE 06/17/17 Oxygen (OXYGEN) Inha, 3 L INH cont 10/22/16 Lovastatin (LOVASTATIN) 20 Mg Tablet, 1 TAB PO QDAY 07/09/16 Multivitamin (MULTI VITAMIN DAILY) 1 Each Tablet, 1 TAB PO DAILY 07/09/16 Aspirin (ASPIR 81) 81 Mg Tablet.dr, 1 TAB PO QDAY, TAB 07/09/16 Allergies: Coded Allergies: No Known Drug Allergies (Unverified , 04/06/17) Review of System/Physical Exam Review of Systems All Systems Reviewed/Normal: Yes, Except as Noted Hematologic: Positive for Fatigue Musculoskeletal: Positive for Muscle Pain, Positive for Joint Pain, Positive for Other (patient reports that he is unable to clip his own own nails and needs to schedule an appointment to have this completed the eye physician) Neurologic: Numbness of Hands Physical Exam Vital Signs Temperature: 98.6 Pulse: 74 BP Systolic: 123 BP Diastolic: 74 Respiratory Rate: 16 O2 SAT: 95 O2 Delivery: Height (inches) 72.00 Weight lb: 164 Weight oz: 6.0 Weight Kg (Ramiro): [id number] Pain: 8 ECOG Score: 1 General: Stable, Well Developed, Well Nourished, Not In Acute Distress HEENT: No Trauma, No Conjunctivitis, No Icterus, No Mucositis, No Oral Thrush Neck: Supple Lungs: Clear to Auscultation Heart: Regular Rate, Regular Rhythm, No Gallops Abdomen: Soft and Nontender, No Hepatosplenomegaly, No Masses Extremities: No Cyanosis, No Clubbing, No Edema Lymphadenopathy: No Cervical Psychiatric: Mood appears normal, Affect appears normal Skin: No Skin Rashes, No Bruising, No Purpura Diagnostic Studies Diagnostic Studies Laboratory Laboratory Tests 07/15/17 10:00 Laboratory Tests 02/10/17 00:00: Neutrophils # 1.5, Hematocrit 47.3, Hemoglobin 15.5, Platelet Count 35.0, White Blood Count 5.1 07/01/17 10:20: Thyroid Stimulating Hormone (TSH) 2.44, Free Thyroxine 1.05, Free Triiodothyronine 3.2 07/15/17 10:00: Hematocrit 40.4, Hemoglobin 13.9, Platelet Count 175, White Blood Count 7.7, Red Blood Count 4.21, Mean Corpuscular Volume 96.0, Mean Corpuscular Hemoglobin 33.0, Mean Corpuscular Hemoglobin Concent 34.4, Red Cell Distribution Width 14.0 , Mean Platelet Volume 8.7, Neutrophils (%) (Auto) 66.1, Lymphocytes (%) (Auto) 11.5, Monocytes (%) (Auto) 13.4, Eosinophils (%) (Auto) 8.5, Basophils (%) (Auto ) 0.5, Nucleated RBC Relative Count (auto) 0.0, Neutrophils # (Auto) 5.1, Lymphocytes # (Auto) 0.9, Monocytes # (Auto) 1.0, Eosinophils # (Auto) 0.7, Basophils # (Auto) 0.0, Nucleated RBC Absolute Count (auto) 0.00, Sodium Level 136, Potassium Level 4.3, Chloride Level 101, Carbon Dioxide Level 23, Blood Urea Nitrogen 16, Creatinine 1.10, Glomerular Filtration Rate Calc > 60.0, Random Glucose 102, Uric Acid 2.9, Calcium Level 8.5, Total Bilirubin 0.6, Aspartate Amino Transf (AST/SGOT) 42, Alanine Aminotransferase (ALT/SGPT) 47, Alkaline Phosphatase 78, Lactate Dehydrogenase 484, Total Protein 7.0, Albumin 4.2 Assessment and Plan Assessment & Plan 1. Multiple myeloma with IgG lambda monoclonal protein. Initial level was 1.9 g/dL. Beta-2 microglobulin was 4.7. [place] free light chain was normal, while lambda free light chain was high at 245. Skeletal bone survey showed multiple lucencies on the greater trochanter of the hip and skull. Bone marrow aspiration biopsy on June 25, 2016 revealed 20% to 40% lambda restricted plasmacytosis consistent with multiple myeloma. FISH for multiple myeloma came back positive for 4p-, +5, 11q+, -13, 14q-, 16q- and 17cen+. Patient started chemotherapy with CyBorD on July 23, 2016, and he completed 12 courses of CyBorD on June 17, 2017. His current level of monoclonal protein of IgG lambda is down from 1.9 and currently 0.4. His lambda free light chain dropped from 245 and currently it is 1.69. He started maintenance Revlimid therapy at 10 mg daily. He will continue Zometa infusions every month for a total of two years. He will follow with Dr. Damico in a month from now with CBC, chem panel , LDH, uric acid and myeloma profile. 2. Skin reaction to Velcade therapy. This will resolve with discontinuation of Velcade, patient is no longer on Velcade 3. 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 Patient has followed with primary care with iron studies which appear to be unremarkable. HGb is monitored closely. 4. Chronic obstructive pulmonary disease on home oxygen 5. Right leg and hip pain. Previous diagnostic studies to include x-ray and ultrasound have been unremarkable. Patient is currently tried Ultram without relief area he will go back to ibuprofen and has been rescheduled with physical therapy. PLAN 1. Revlimid 10 mg tab to be taken daily. 2. Patient to return monthly with CBC, chem panel, uric acid prior and Zometa 3. Continue Zometa every month. 4. Patient to call if he has questions or concerns 5. We will try to reschedule patient's appointments so that his multiple myeloma panel is drawn and then he follows with the provider the following week to review those lab results and to have Zometa. I personally spent a total of 20 minutes. Of that 15 minutes was counseling/ coordination of patient's care. See my note above for details. Copies to: GRISEL REID MD, NANCY J AUCTIONEER TOBACCO-BC, ONC Jul 15, 2017 11:21
[2017-07-15 13:42] VITALS: BP 99/71
[2017-07-22 10:24] VITALS: BP 111/84
[2017-07-22 10:36] LABS: PLATELET COUNT, AUTOMATED 195 K/uL (150-450)
[2017-07-29 09:03] LABS: PLATELET COUNT, AUTOMATED 227 K/uL (150-450)
[2017-07-29 10:21] VITALS: BP 132/71
[2017-07-29] MEDS: NS(*) 0.9% 100 ML BAG 100 ML IVPB PRN (10:47)
[2017-08-05 10:38] LABS: PLATELET COUNT, AUTOMATED 175 K/uL (150-450)
[2017-08-05 10:43] VITALS: BP 116/61
[2017-08-12 10:09] VITALS: BP 143/91
[2017-08-12 10:20] LABS: PLATELET COUNT, AUTOMATED 167 K/uL (150-450)
[2017-08-19 12:52] VITALS: BP 130/69
--- NOTE | 2017-08-20 08:38 | ONCOLOGY FOLLOW UP NOTE ---
EVENT DATE: August 19, 2017 DIAGNOSES 1. Multiple myeloma. 2. Normochromic, normocytic anemia. 3. Hypercholesterolemia. 4. Chronic obstructive pulmonary disease. CHIEF COMPLAINT Patient is here today for followup of his multiple myeloma on chemotherapy maintenace treatment with Revlimid. ONCOLOGY HISTORY The patient is a 76-year-old male who had history of emphysema and hypercholesterolemia. He had a normal CBC in July 2014. The patient was found lately to have anemia. His blood count on April 15, 2016 showed white count 7.1, hemoglobin 10.9, hematocrit 33.3%, platelets 272,000 and MCV normal at 90. His serum creatinine was 1.71 at that time and his glomerular filtration rate was 39 mL/min. Soluble transferrin receptor assay was normal at 4.3. Serum iron was 62. TIBC was 261. Iron saturation 23.8. Ferritin was 139. So, all his iron studies were within the normal range. EPO level was mildly elevated at 47; red cell folate was normal at 1252; serum folate was normal at more than 22. B12 was 360. Methylmalonic acid assay was normal at 0.25. Haptoglobin was high at 287. Repeat CBC showed hemoglobin 11.2, hematocrit 33, platelets 246,000, white count 7.3. Serum protein electrophoresis showed monoclonal protein of 1.95, but unfortunately no immunofixation was done. Bone marrow aspiration biopsy done on June 25, 2016 came back positive for lambda restricted plasmocytosis compatible with plasma cell myeloma with 20 to 40% of the core bone marrow biopsy positive for plasma cells. FISH for myeloma came back positive for 4p-, +5, 11q+, -13, 14q-, 16q-, and 17 adrian+. Skeletal bone survey done on June 25, 2016 did reveal multiple lucencies in the greater trochanter of the left hip and a void lucency seen on the lateral view of the skull in the frontal region. The patient started treatment with CyBorD chemotherapy on July 23, 2016. Patient finished his chemotherapy with CyBorD on June 17, 2017, and he started maintenance Revlimid therapy June 2017. HISTORY OF PRESENT ILLNESS Patient is here today for followup of his multiple myeloma on maintenance therapy with Revlimid. He is doing fine currently, except for some occasional cough with expectoration. He has some tingling and numbness in his feet. Other than that he is really doing very well. PAST MEDICAL HISTORY 1. Hypercholesterolemia. 2. Emphysema. 3. Tobacco abuse. 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 5. Tinnitus. 6. Histor of fractured femur. PAST SURGICAL HISTORY 1. Bilateral cataract surgery 2002. 2. In 2014, foreign body removed from the foot. 3. Double hernia repair in 2001. 4. Fracture repair of the femur in 1956. 5. In 2004, he had fracture of the right arm. FAMILY HISTORY Negative for cancer or blood diseases. SOCIAL HISTORY The patient is with four children, three living. 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 He smokes about one pack a day for sixty years. He seldom drinks, once or twice per year. He denies any abuse of illicit drugs. CURRENT MEDICATIONS 1. Lovastatin 20 mg daily. 2. Baby aspirin 81 mg daily. ALLERGIES No known drug allergies. REVIEW OF SYSTEMS CONSTITUTIONAL: No appetite or weight change. No fever, chills or sweating. No recent infection. HEENT: Ears: No tinnitus or hearing problem. Nose: No nasal discharge or epistaxis. Throat: No sore throat or mouth ulcers. Eyes: No diplopia or visual changes. RESPIRATORY: He has occasional cough and expectoration. CARDIOVASCULAR: No chest pain, orthopnea, or paroxysmal nocturnal dyspnea (PND) . No edema. No palpitations. GASTROINTESTINAL: Patient has constipation under control with stool softener. GENITOURINARY: No hematuria or dysuria. MUSCULOSKELETAL: Patient has charleyhorses in the legs, but other than that he is doing very well. NEUROLOGICAL: Patient has tingling and numbness in the feet. HEMATOLOGIC/LYMPHATIC: He is weak, tired and fatigued. No enlarged lymph nodes. SKIN: No skin rash or lumps. PSYCHIATRIC: No anxiety or depression. PHYSICAL EXAMINATION GENERAL: Looks stable. Well-developed, well-nourished, and in no acute distress. VITAL SIGNS: Blood pressure 130/69, pulse 74 per minute, respirations 16 per minute, temperature 96.5, pulse ox 92% on room air. HEENT: Head: Atraumatic. No sinus tenderness to palpation. Eyes: No icterus or conjunctivitis. Mouth and throat: No oral thrush or mucositis. NECK: Supple. No cervical or supraclavicular lymphadenopathy. LUNGS: Clear to auscultation and percussion bilaterally. HEART: Regular rate and rhythm. No gallops, murmurs, clicks or rubs. ABDOMEN: Soft and lax. No tenderness. No hepatosplenomegaly. No masses. EXTREMITIES: There is minimal ankle edema. LYMPHATICS: No peripheral lymphadenopathy. NEUROLOGICAL: Conscious, alert and oriented times three. No focal motor or sensory deficits. PSYCHIATRIC: Mood and affect appear normal. SKIN: No skin rash, bruise or purpuric eruption. DIAGNOSTIC DATA CBC showed a white count of 4.7, hemoglobin 14.7, hematocrit 43.4, platelets 167 ,000. Chem panel totally normal, except BUN 20, creatinine 1.3, AST 45. Other parameters are normal. Beta-2 microglobulin is 2.9. IgG lambda monoclonal protein is 0.37, which is down from 0.04. [place] free light chain is 2.64, and lambda free light chain is 2.65 with kappa to lambda free light chain ratio normal at 1. ASSESSMENT 1. Multiple myeloma with IgG lambda monoclonal protein. Initial level was 1.9 g/dL. Beta-2 microglobulin was 4.7. [place] free light chain was normal, while lambda free light chain was high at 245. Skeletal bone survey showed multiple lucencies on the greater trochanter of the hip and the skull. Bone marrow aspiration biopsy June 25, 2016 revealed 20% to 40% lambda restricted plasmacytosis consistent with multiple myeloma. FISH for multiple myeloma came back positive for 4p-, +5, 11q+, -13, 14q-, 16q- and 17cen+. Patient received chemotherapy with CyBorD on July 23, 2016, and he completed 12 courses June 17, 2017. His current level of IgG lambda dropped from 1.9 to 0.4. His lambda free light chain dropped from 245 to 1.69. Patient started the maintenance Revlimid therapy 10 mg daily in June 2017. His IgG lambda level is 0.37, down from 0.4. I am planning to continue maintenance Revlimid therapy and I will see him in a month again with CBC, chem panel, LDH, uric acid and myeloma profile. 2. Chronic obstructive pulmonary disease on home oxygen. PLAN 1. Continue Revlimid 10 mg daily. 2. Patient to return in one month with CBC, chem panel, LDH, uric acid and myeloma profile. 3. Continue Zometa infusions every month for a total of two years. 4. Patient is to contact us for any new concerns or complaints. JYOTSNA
[~2017-08-26] VITALS: Ht 182.9 cm; Wt 84.4 kg
[~2017-08-26 09:35] MED LIST changes: +BORTEZOMIB 3.5 MG INJS SC ONE; +DEXTROSE 5%(*) 100 ML BAG 100 ML IVPB PRN; +LIDOCAINE/SOD BICARB 8.4% SYR ID PRN; +NS 0.9% IVPB ONE; +ZOLEDRONIC ACID 4 MG/5 ML VIAL 4 MG in NS(*) 0.9% 100 ML BAG 100 ML IVPB ONE; +ZOLEDRONIC ACID IVPB ONE
[2017-08-26] MEDS: NS(*) 0.9% 100 ML BAG 100 ML IVPB PRN (10:00)
[2017-08-26 10:08] VITALS: BP 108/72
[2017-08-26] MEDS ORDERED: ZOLEDRONIC ACID IVPB ONE (12:00)
[2017-08-26] MEDS ORDERED: NS 0.9% IVPB ONE (12:00)
== END 2017-09-07 ==
LOC: SPU 09:35
PROVIDERS: ATTEND Nurse Practitioner Family
DX: C90.00 Multiple myeloma not having achieved remission (principal); D64.9 Anemia, unspecified; J44.9 Chronic obstructive pulmonary disease, unspecified; Z79.82 Long term (current) use of aspirin; Z87.891 Personal history of nicotine dependence; Z79.899 Other long term (current) drug therapy; M79.604 Pain in right leg; M25.551 Pain in right hip; R20.0 Anesthesia of skin; R53.83 Other fatigue; E78.00 Pure hypercholesterolemia, unspecified
CPT/HCPCS: 36415; 82232; 83036; 83615; 83883; 84439; 84443; 84481; 84550; 85025; 85027; 86334; 96365; 96374; 96401; G0463; J3489; J7050; J9041; 82040; 82247; 82310; 82374; 82435; 82465; 82565; 82947; 83718; 84075; 84132; 84155; 84295; 84450; 84460; 84478; 84520; 99212

== ENCOUNTER 2017-09-23 09:00 | Outpatient (RCR) | payer MEDICARE, OTHER ==
[2016-07-05 13:51] VITALS: BMI 22.5
--- NOTE | 2017-07-22 11:59 | PT INITIAL EVALUATION ---
MEDICAL DIAGNOSIS: Hip Pain TREATMENT DIAGNOSIS: Low Back Pain, Generalized Weakness, Abnormality of Gait DATE OF ONSET: 07/15/17 SUBJECTIVE: Williams Munoz (Tracey) is a 76 year-old male with a recent history and treatment for multiple myeloma, as well as a 1 week gradual progression of R hip and leg pain. Pt reports that pain started around the time that he started taking Revlimid oral medication, but he isn't for sure if that is what is causing it. He reports it started in the R PSIS region and then progressed to the R lateral hip and occasional goes down the R leg to the calf with cramping in his R HS. Pt also notes R big toe numbness and tingling. Pt rates pain currently as an 8/10 located in the R PSIS region. Pain is better with sitting and resting, and worse with walking. REHAB PROBLEM LIST: Increased Pain Decreased ROM Decreased Strength Impaired Transfers Decreased Endurance Decreased Balance Decreased Function Decreased ADL's Decreased Mobility Decreased Gait PREVIOUS MEDICAL HISTORY: See EMR OBJECTIVE: Pt is on 3 L of O2 Posture: Pt has good lumbar lordosis, but sits with a forward trunk lean from the hips. Pt has a slight L lateral shift. Pt has increased thoracic kyphosis. ROM: Lumbar ROM: flexion: full without pain, ext: severely restricted with pn on B PSIS, L SB: minimally restricted with L PSIS pain, R SB: minimally restricted with R PSIS pain, R rotation: moderate restrictions with pn on R side, L rotation: full with no pain. Strength: LE MMT: Hip: flexion: B 4+/5, ext: L 4+/5, R 4/5, abd: B 4+/5, Add B 4 +/5. Knee: flexion: L 5/5, R 4+/5, Ext: L 5/5, R 4+/5. Ankle: PF: L 4+/5, R 4/ 5 with pain in hip with standing, DF: L 4+/5, R 4/5 Mobility: [place] Lumbar Screen: Repeated flexion: pain moved to L3 in the spine, Ext: pain increased in R PSIS, R SB: increased pain in R PSIS, R rotation: Increased pain in R PSIS. Gait: Pt ambulates with decreased stance on the R LE and using O2 cart as support. Pt has L lateral trunk lean. Balance: Other Objective Findings: O2 sat: 94%, HR: 68bpm, BP: 110/64 ASSESSMENT: Pt shows signs and symptoms consistent with lumbar dysfunction with radicular symptoms into the R LE. Physical therapy is indicated to address the above listed deficits to increase pt functional mobility with ADL's. Short Term Goals In 3 weeks pt will centralize pain to the lumbar spine only for improved function with ADL's. In 6 weeks pt will reduce lumbar pain to <2/10 for improved function with ADL's. In 6 weeks pt will be compliant with HEP to continue gains in functional mobility and strength and maintain pain status. In 6 weeks pt will improve R LE strength to equal to that of the L LE for improved functional mobility with ADL's. In 6 weeks pt will be able to walk 3 laps around the track without increased pain for improved functional ambulation with ADL's. Patient's Goals Decrease pain, improve function with walking PLAN: Patient to be seen for Manual Therapy/STM/MET Strengthening/condition Ice/Heat Range of Motion Spinal Stabilization Ultrasound Stretching Iontophoresis Neuromuscular Re-ed Closed Chain Program Electrical Stim Posture/Body mechanics Gait Trg/Balance Trg Biofeedback Home Exercise Program Mech./Manual Traction Therapeutic Activities Pelvic Floor 1x/Week for 6 Weeks If you have any questions, comments, or concerns about this report or plan, please contact me at . Thank you, Lynette Lacy, PT, DPT, CLT MTDD
--- NOTE | 2017-09-16 11:49 | PT PLAN OF CARE ---
Physician: MATTY Lofton Patient is being seen: 1x/Week Therapist: Lynette Lacy, PT, DPT, CLT Medical Diagnosis: Hip Pain Treatment Diagnosis: Low Back Pain, Generalized Weakness, Abnormality of Gait Date of Onset: 07/15/17 Date of Initial Evaluation: 07/22/17 Date patient was last seen: 09/16/17 Number of treatments: 5 Number of cancellations/No shows: 1 INTERVENTIONS: Manual Therapy/STM/MET Strengthening/condition Ice/Heat Range of Motion Spinal Stabilization Ultrasound Stretching Iontophoresis Neuromuscular Re-ed Closed Chain Program Electrical Stim Posture/Body mechanics Gait Trg/Balance Trg Biofeedback Home Exercise Program Mech./Manual Traction Therapeutic Activities Pelvic Floor GOALS: In 3 weeks pt will centralize pain to the lumbar spine only for improved function with ADL's. MET In 6 weeks pt will reduce lumbar pain to <2/10 for improved function with ADL' s. MET In 6 weeks pt will be compliant with HEP to continue gains in functional mobility and strength and maintain pain status. In 6 weeks pt will improve R LE strength to equal to that of the L LE for improved functional mobility with ADL's. In 6 weeks pt will be able to walk 3 laps around the track without increased pain for improved functional ambulation with ADL's. PATIENT'S GOAL: Decrease pain, improve function with walking Status of Patient's Goals: 2/5 MET, 3/5 In Progress Patient Compliance: Good Prognosis: Good Reasons for continuing therapy: "Lashay" continues to show good progress with no longer any hip pain. Pt initiated generalized LE strengthening and aerobic endurance HEP to return to prior level of function. Lingering strength deficits include hip extension and ankle PF with functional ambulation. Pt shows diminished HR response to aerobic exercise, however with gradual increase in function pt maintained good oxygenation throughout. Pt to continue with PT for progress towards independent exercise. Posture: Pt has good lumbar lordosis, but sits with a forward trunk lean from the hips. Pt has increased thoracic kyphosis. ROM: Lumbar ROM: flexion: full without pain, ext: severely restricted with pn on B PSIS, L SB: minimally restricted with L PSIS pain, R SB: minimally restricted with R PSIS pain, R rotation: moderate restrictions with pn on R side, L rotation: full with no pain. Strength: LE MMT: Hip: flexion: B 4+/5, ext: L 4/5, R 4-/5, abd: B 4+/5, Add B 4 +/5. Knee: flexion: B 5/5, Ext: B 5/5. Ankle: PF: B 4+/5, DF: L 5/5, R 4/5 Mobility: [place] Lumbar Screen: Repeated flexion: pain moved to L3 in the spine, Ext: pain increased in R PSIS, R SB: increased pain in R PSIS, R rotation: Increased pain in R PSIS. Other Objective Findings: O2 sat: 94%, HR: 68bpm, BP: 110/64 1x/Week for 6 Weeks If you have any questions, comments, or concerns about this report or plan, please contact me at . Thank you, Lynette Lacy, PT, DPT, CLT MTDD
[~2017-09-23 09:00] MED LIST changes: -BORTEZOMIB 3.5 MG INJS SC ONE; -DEXTROSE 5%(*) 100 ML BAG 100 ML IVPB PRN; -LIDOCAINE/SOD BICARB 8.4% SYR ID PRN; -NS 0.9% IVPB ONE; -ZOLEDRONIC ACID 4 MG/5 ML VIAL 4 MG in NS(*) 0.9% 100 ML BAG 100 ML IVPB ONE; -ZOLEDRONIC ACID IVPB ONE
--- NOTE | 2017-09-23 09:45 | PT PLAN OF CARE ---
Physician: MATTY Lofton Patient is being seen: 1x/Week Therapist: Lynette Lacy, PT, DPT, CLT Medical Diagnosis: Hip Pain Treatment Diagnosis: Low Back Pain, Generalized Weakness, Abnormality of Gait Date of Onset: 07/15/17 Date of Initial Evaluation: 07/22/17 Date patient was last seen: 09/23/17 Number of treatments: 6 Number of cancellations/No shows: 1 INTERVENTIONS: Manual Therapy/STM/MET Strengthening/condition Ice/Heat Range of Motion Spinal Stabilization Ultrasound Stretching Iontophoresis Neuromuscular Re-ed Closed Chain Program Electrical Stim Posture/Body mechanics Gait Trg/Balance Trg Biofeedback Home Exercise Program Mech./Manual Traction Therapeutic Activities Pelvic Floor GOALS: In 3 weeks pt will centralize pain to the lumbar spine only for improved function with ADL's. MET In 6 weeks pt will reduce lumbar pain to <2/10 for improved function with ADL' s. MET In 6 weeks pt will be compliant with HEP to continue gains in functional mobility and strength and maintain pain status. MET In 6 weeks pt will improve R LE strength to equal to that of the L LE for improved functional mobility with ADL's. MET In 6 weeks pt will be able to walk 3 laps around the track without increased pain for improved functional ambulation with ADL's. MET PATIENT'S GOAL: Decrease pain, improve function with walking Status of Patient's Goals: 2/5 MET, 3/5 In Progress Patient Compliance: Good Prognosis: Good Reasons for discharge from therapy: Williams Bahena" is to discharge from physical therapy at this time secondary to completion of 5/5 functional goals. Pt has returned to prior level of function and is successful with his independent HEP to maintain strength gains. Pt shows full functional well-being and reports no physical side-effects from oncological treatment at this time. Lumbar pain is fully resolved and pt is compliant with repeated exercise if it returns. ROM: Lumbar ROM: full ROM without pain Strength: LE MMT: Hip: flexion/ext: B 4+/5, abd: B 4+/5, Add B 4+/5. Knee: flexion: B 5/5, Ext: B 5/5. Ankle: PF: B 4+/5, DF: L 5/5, R 4+/5 Other Objective Findings: FACT-G: PWB: , SWB: , EWB: , FWB: , Total: 108/108 1x/Week for 6 Weeks If you have any questions, comments, or concerns about this report or plan, please contact me at . Thank you, Lynette Lacy, PT, DPT, CLT MTDD
== END 2017-09-23 11:27 | disposition home or self-care (01) ==
LOC: PT 09:00
PROVIDERS: ATTEND Internal Medicine Hematology
DX: M25.551 Pain in right hip (principal); M54.5 Low back pain; M62.81 Muscle weakness (generalized); R26.89 Other abnormalities of gait and mobility; Z85.79 Personal history of other malignant neoplasms of lymphoid, hematopoietic and related tissues; Z99.81 Dependence on supplemental oxygen; R20.2 Paresthesia of skin
CPT/HCPCS: 97162

== ENCOUNTER 2017-10-08 11:15 | Outpatient (RCR) | payer MEDICARE, OTHER ==
[2016-07-05 13:51] VITALS: BMI 22.5
--- NOTE | 2017-10-07 07:38 | PT INITIAL EVALUATION ---
MEDICAL DIAGNOSIS: Right Hip Pain TREATMENT DIAGNOSIS: Right Hip Pain DATE OF ONSET: 10/06/17 SUBJECTIVE: Williams "Brian Munoz recently is returning to physical therapy following the return of radiating pain symptoms down the R leg with pain consistently in the R hip and PSIS. Pt was previously seen for the same symptoms in PT and had complete resolution with treatment and HEP. However, since the onset of return of pain pt reports that his HEP is now starting to make the hip and leg worse. Pt reports that it has come on gradually and now is to the point he can barely walk sometimes. Pain is currently rated as 8/10 in the hip and R PSIS and goes down to mid R calf at 4/10. Pt reports that pain is increased with walking to 10/10, and quieted with sitting but not much. Pt previously thought pain was related to constipation, however has recently had bowel movements without any change in pain. Pt describes pain as sharp and burning like he was poked with a branding iron. REHAB PROBLEM LIST: Increased Pain Decreased ROM Decreased Strength Impaired Transfers Decreased Endurance Decreased Balance Decreased Function Decreased ADL's Decreased Mobility Decreased Gait PREVIOUS MEDICAL HISTORY: See EMR, Hx of cancer with metastasis OBJECTIVE: Posture: Pt has forward trunk lean with standing from the hips with flat lumbar spine and increased thoracic kyphosis at the T/L junction. ROM: Lumbar ROM: Flexion: Min-Moderate restrictions with pain, Ext: severely impaired with pain, B SB: Minimally impaired with pain to R>L, Rotation: full with pain. Palpation: Pt is tender to palpation Special Tests: [place] Lumbar Screen: Flexion: pain centralized to hip initially and then radiated up to thoracic spine and then returned back down to the R mid calf, Ext: pain increased in hip to 10/10 and leg to 5-6/10 remaining at the calf, Flexion with L LE rotation: Pain increased in the leg to 5-6/10 and extended to the ankle, Flexion with R LE rotation: pain intensified and became more sharp in the calf but quieted in the hip, L hip side -glides: Pain had no change in the back or leg staying at a high intensity, R hip side-glides: Pain increased and pt was only able to tolerate 2 repetitions prior to R leg becoming unable to WB. Mobility: Pt transfers from seated to standing with use of B UE support slowly with pain. Gait: Antalgic gait with decreased step length and height. Pt has decreased WB on the R LE with out hip extension B throughout gait cycle. ASSESSMENT: Lashay shows signs and symptoms consistent with lumbar derangement with neural impingement resulting in radiating pain down the R hip and leg. Physical therapy is indicated to improve the above listed deficits to improve pt functional mobility with ADL's and recreational activities. Short Term Goals In 3 weeks pt will centralize pain to the lumbar spine only without any radiation down the R leg for improved gait mechanics and function with ADL's. In 6 weeks pt will decrease pain to 3/10 or less with ambulation and ADL's for improved function. In 6 weeks pt will improve Lumbar ROM to full without pain in all planes for improved function with ADL's. In 6 weeks pt will improve gait mechanics to normal with equal WB on B LE and equal step and length for improved function with ADL's. Patient's Goals Decrease pain to be able to go fishing over the summer. PLAN: Patient to be seen for Manual Therapy/STM/MET Strengthening/condition Ice/Heat Range of Motion Spinal Stabilization Ultrasound Stretching Iontophoresis Neuromuscular Re-ed Closed Chain Program Electrical Stim Posture/Body mechanics Gait Trg/Balance Trg Biofeedback Home Exercise Program Mech./Manual Traction Therapeutic Activities Pelvic Floor 3x/Week for 6 Weeks If you have any questions, comments, or concerns about this report or plan, please contact me at . Thank you, Lynette Lacy, PT, DPT, CLT MTDTonio
--- NOTE | 2017-10-21 08:52 | PT PLAN OF CARE ---
Physician: MATTY Lofton Patient is being seen: 2-3x/Week Therapist: Lynette Lacy, PT, DPT, CLT Medical Diagnosis: Right Hip Pain Treatment Diagnosis: Right Hip Pain Date of Onset: 10/06/17 Date of Initial Evaluation: 10/06/17 Date patient was last seen: 10/12/17 Number of treatments: 2 Number of cancellations/No shows: 1 INTERVENTIONS: Manual Therapy/STM/MET Strengthening/condition Ice/Heat Range of Motion Spinal Stabilization Ultrasound Stretching Iontophoresis Neuromuscular Re-ed Closed Chain Program Electrical Stim Posture/Body mechanics Gait Trg/Balance Trg Biofeedback Home Exercise Program Mech./Manual Traction Therapeutic Activities Pelvic Floor GOALS: In 3 weeks pt will centralize pain to the lumbar spine only without any radiation down the R leg for improved gait mechanics and function with ADL's. MET In 6 weeks pt will decrease pain to 3/10 or less with ambulation and ADL's for improved function. MET In 6 weeks pt will improve Lumbar ROM to full without pain in all planes for improved function with ADL's. Not Assessed In 6 weeks pt will improve gait mechanics to normal with equal WB on B LE and equal step and length for improved function with ADL's. MET PATIENT'S GOAL: Decrease pain to be able to go fishing over the summer. Status of Patient's Goals: 3/4 MET, 1/4 Not Assessed prior to pt self discharge Patient Compliance: Fair Prognosis: Fair Reasons for discharge therapy: "Lashay" is to discharge from physical therapy at this time secondary to pt preference with report of resolution of symptoms and completion of 3/4 functional goals. At the time of discharge pt had centralized pain to the lumbar spine only and was compliant with HEP to continue with decreased neural impingement. If further symptoms arise, pt is to follow up with further PT for treatment if HEP does not reduce pain. Posture: Pt has forward trunk lean with standing from the hips with flat lumbar spine and increased thoracic kyphosis at the T/L junction. ROM: Lumbar ROM: Flexion: Min-Moderate restrictions with pain, Ext: severely impaired with pain, B SB: Minimally impaired with pain to R>L, Rotation: full with pain. Palpation: Pt is tender to palpation Special Tests: [place] Lumbar Screen: Flexion: pain centralized to hip initially and then radiated up to thoracic spine and then returned back down to the R mid calf, Ext: pain increased in hip to 10/10 and leg to 5-6/10 remaining at the calf, Flexion with L LE rotation: Pain increased in the leg to 5-6/10 and extended to the catherine, Flexion with R LE rotation: pain intensified and became more sharp in the calf but quieted in the hip, L hip side-glides: Pain had no change in the back or leg staying at a high intensity, R hip side-glides: Pain increased and pt was only able to tolerate 2 repetitions prior to R leg becoming unable to bear weight. Mobility: Pt transfers from seated to standing with use of B UE support slowly with pain. If you have any questions or concerns, please feel free to contact me at . Thank you, Lynette Lacy, PT, DPT, CLT JUDYD
== END 2017-10-08 18:00 | disposition home or self-care (01) ==
LOC: PT 11:15
PROVIDERS: ATTEND Nurse Practitioner Family
DX: M25.551 Pain in right hip (principal); Z85.9 Personal history of malignant neoplasm, unspecified
CPT/HCPCS: 97162

== ENCOUNTER → 2017-10-22 | Outpatient (CLI) | payer MEDICARE, OTHER ==
[2016-07-05 13:51] VITALS: BMI 22.5
[~2017-10-22] MED LIST changes: +GADOBENATE 529MG/1ML 15ML VIAL IVP ONE; -METF-410 PO; +METF-411 PO
--- NOTE | 2017-10-22 15:51 | RADIOLOGY IMAGING REPORT ---
FACILITY: [facility] PATIENT NAME: Williams Munoz : 1940 MR: [id number] V: [id number] EXAM DATE: ORDERING PHYSICIAN: VERÓNICA COLE TECHNOLOGIST: Location: [facility] Patient: Williams Munoz : 1940 Visit/Account:[id number] Date of Sevice: 10/22/2017 EXAMINATION: MRI lumbar spine without IV contrast MRI lumbar spine with IV contrast HISTORY: Low back pain and hip pain. Multiple myeloma. COMPARISON: Bone survey from 06/25/2016. TECHNIQUE: Multi-planar, multi-sequence lumbar spine MRI was performed before and after IV contrast. CONTRAST: 15 mL of IV MultiHance gadolinium. FINDINGS: Alignment: Grade 1 anterolisthesis at L3-4 and L4-5 measuring up to 3 mm at L4-5. Vertebral marrow signal: Mildly heterogeneous with a few areas of focal fatty marrow versus hemangiom erickson, and a few small Schmorl's node. There is a 1.1 cm T1 and T2 hypointense lesion in the L5 verteb ra. Distal thoracic cord: Negative. Conus: negative, terminates at T12-L1. Cauda equina: Negative. Paravertebral soft tissues: Negative. Visualized abdominal and pelvic structures: Negative. Enhancement pattern: There is enhancement of the 1.1 cm lesion in the L5 vertebra. Disc spaces: There is disc desiccation of the visualized spine. Lower thoracic spine: Normal. L1-2: Mild concentric disc bulge and bilateral facet hypertrophy with ligamentum flavum laxity. No s ignificant central canal or foraminal stenosis. L2-3: Mild disc space narrowing with a mild disc bulge eccentric to the left with annular tear. Bila teral facet hypertrophy and ligamentum flavum laxity. Mild central canal stenosis, mild right and mi [id number] left foraminal stenosis. L3-4: Mild disc space narrowing with anterolisthesis, and a moderate disc bulge eccentric to the left , bilateral facet hypertrophy and ligamentum flavum laxity. Moderate central canal stenosis, mild le ft lateral recess stenosis, mild right and moderate to severe left foraminal stenosis. L4-5: Mild disc space narrowing with anterolisthesis, a moderate disc bulge eccentric to the right wi th annular tear, bilateral facet hypertrophy and ligamentum flavum laxity. Moderate central canal st enosis, moderate left and severe right foraminal stenosis. There is mild mass effect on the foramina l right L4 nerve root by the far right lateral component of the disc. L5-S1: Minimal concentric disc bulge and bilateral facet hypertrophy without significant central ann l or foraminal stenosis. IMPRESSION: 1. 1.1 cm enhancing lesion in the L5 vertebra is suspicious for a myeloma lesion. 2. Multilevel degenerative disc disease and facet arthropathy is worst at L4-5 where there is modera te spinal stenosis, moderate left and severe right foraminal stenosis. Please see the findings for d escription of individual level disease. 3. Annular tears at L2-3 and L4-5. 4. Grade 1 degenerative anterolisthesis at L3-4 and L4-5. Report Dictated By: Qiana Sanchez MD at 10/22/2017 3:28 PM Report E-Signed By: Qiana Sanchez MD at 10/22/2017 3:46 PM WSN:[id number]
== END ==
LOC: MRI 12:40
PROVIDERS: ATTEND Internal Medicine Hematology
DX: S34.21XA Injury of nerve root of lumbar spine, initial encounter (principal); M47.896 Other spondylosis, lumbar region
CPT/HCPCS: 72158; A9577

== ENCOUNTER 2017-11-18 08:36 | Outpatient (RCR) | payer MEDICARE, OTHER ==
[2016-07-05 13:51] VITALS: Ht 182.9 cm; Wt 82.4 kg
[2017-09-16 10:20] VITALS: BP 104/49
[2017-09-16 10:35] LABS: PLATELET COUNT, AUTOMATED 146 K/uL (150-450)
[2017-09-23 09:38] VITALS: BP 108/69
[2017-09-23] MEDS: LIDOCAINE/SOD BICARB 8.4% SYR ID PRN (10:44)
[2017-09-23] MEDS: NS(*) 0.9% 100 ML BAG 100 ML IVPB PRN (10:45)
--- NOTE | 2017-09-23 18:37 | ONCOLOGY FOLLOW UP NOTE ---
EVENT DATE: September 23, 2017 DIAGNOSES 1. Multiple myeloma. 2. Normochromic, normocytic anemia. 3. Hypercholesterolemia. 4. Chronic obstructive pulmonary disease. CHIEF COMPLAINT Patient is here today for followup of his multiple myeloma on maintenance therapy with Revlimid. ONCOLOGY HISTORY The patient is a 76-year-old male who had history of emphysema and hypercholesterolemia. He had a normal CBC in July 2014. The patient was found lately to have anemia. His blood count on April 15, 2016 showed white count 7.1, hemoglobin 10.9, hematocrit 33.3%, platelets 272,000 and MCV normal at 90. His serum creatinine was 1.71 at that time and his glomerular filtration rate was 39 mL/min. Soluble transferrin receptor assay was normal at 4.3. Serum iron was 62. TIBC was 261. Iron saturation 23.8. Ferritin was 139. So, all his iron studies were within the normal range. EPO level was mildly elevated at 47; red cell folate was normal at 1252; serum folate was normal at more than 22. B12 was 360. Methylmalonic acid assay was normal at 0.25. Haptoglobin was high at 287. Repeat CBC showed hemoglobin 11.2, hematocrit 33, platelets 246,000, white count 7.3. Serum protein electrophoresis showed monoclonal protein of 1.95, but unfortunately no immunofixation was done. Bone marrow aspiration biopsy done on June 25, 2016 came back positive for lambda restricted plasmocytosis compatible with plasma cell myeloma with 20 to 40% of the core bone marrow biopsy positive for plasma cells. FISH for myeloma came back positive for 4p-, +5, 11q+, -13, 14q-, 16q-, and 17 adrian+. Skeletal bone survey done on June 25, 2016 did reveal multiple lucencies in the greater trochanter of the left hip and a void lucency seen on the lateral view of the skull in the frontal region. The patient started treatment with CyBorD chemotherapy on July 23, 2016. Patient finished his chemotherapy with CyBorD on June 17, 2017, and he started maintenance Revlimid therapy June 2017. HISTORY OF PRESENT ILLNESS Patient is here today for followup of his multiple myeloma on maintenance therapy with Revlimid. Patient is doing fine currently, except lately he has some cough with thick phlegm, but other than that he is really doing very well. He denies any constitutional symptoms or bone pains. PAST MEDICAL HISTORY 1. Hypercholesterolemia. 2. Emphysema. 3. Tobacco abuse. 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 5. Tinnitus. 6. Histor of fractured femur. PAST SURGICAL HISTORY 1. Bilateral cataract surgery 2002. 2. In 2014, foreign body removed from the foot. 3. Double hernia repair in 2001. 4. Fracture repair of the femur in 1956. 5. In 2004, he had fracture of the right arm. FAMILY HISTORY Negative for cancer or blood diseases. SOCIAL HISTORY The patient is with four children, three living. 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 He smokes about one pack a day for sixty years. He seldom drinks, once or twice per year. He denies any abuse of illicit drugs. CURRENT MEDICATIONS 1. Lovastatin 20 mg daily. 2. Baby aspirin 81 mg daily. 3. Revlimid 10 mg daily. ALLERGIES No known drug allergies. REVIEW OF SYSTEMS CONSTITUTIONAL: No appetite or weight change. No fever, chills or sweating. No recent infection. HEENT: Ears: No tinnitus or hearing problem. Nose: No nasal discharge or epistaxis. Throat: No sore throat or mouth ulcers. Eyes: No diplopia or visual changes. RESPIRATORY: Patient has cough with expectoration of thick phlegm. CARDIOVASCULAR: No chest pain, orthopnea, or paroxysmal nocturnal dyspnea (PND) . No edema. No palpitations. GASTROINTESTINAL: Patient has constipation under control with stool softener. GENITOURINARY: No hematuria or dysuria. MUSCULOSKELETAL: Patient has charleyhorses in the legs, but other than that he is doing very well. NEUROLOGICAL: Patient has tingling and numbness in the feet. HEMATOLOGIC/LYMPHATIC: He is weak, tired and fatigued. No enlarged lymph nodes. SKIN: No skin rash or lumps. PSYCHIATRIC: No anxiety or depression. PHYSICAL EXAMINATION GENERAL: Looks stable. Well-developed, well-nourished, and in no acute distress. VITAL SIGNS: Blood pressure 108/69, pulse 71 per minute, respirations 16 per minute, temperature 97, pulse ox 95% on 3L oxygen. HEENT: Head: Atraumatic. No sinus tenderness to palpation. Eyes: No icterus or conjunctivitis. Mouth and throat: No oral thrush or mucositis. NECK: Supple. No cervical or supraclavicular lymphadenopathy. LUNGS: Clear to auscultation and percussion bilaterally. HEART: Regular rate and rhythm. No gallops, murmurs, clicks or rubs. ABDOMEN: Soft and lax. No tenderness. No hepatosplenomegaly. No masses. EXTREMITIES: There is minimal ankle edema. LYMPHATICS: No peripheral lymphadenopathy. NEUROLOGICAL: Conscious, alert and oriented times three. No focal motor or sensory deficits. PSYCHIATRIC: Mood and affect appear normal. SKIN: No skin rash, bruise or purpuric eruption. DIAGNOSTIC DATA CBC showed a white count of 4.3, hemoglobin 14.8, hematocrit 42.1, platelets 146 ,000. Chem panel totally normal, except creatinine 1.4, uric acid 2.5, AST 37. Other parameters are normal. Beta-2 microglobulin is mildly elevated at 3.1. [place] free light chain is 2.6, which is down from 2.64, and lambda free light chain is 3.47, which is down from 3.65. Monoclonal protein with IgG lambda is 0.34 g/dL, which is down from 0.37 g/dL. ASSESSMENT 1. Multiple myeloma with IgG lambda monoclonal protein. Initial level was 1.9 g/dL. Beta-2 microglobulin was 4.7. [place] free light chain was normal, while lambda free light chain was high at 245. Skeletal bone survey showed multiple lucencies in the greater trochanter of the hip and the skull. Bone marrow aspiration biopsy June 25, 2016 revealed 20% to 40% lambda restricted plasmacytosis consistent with multiple myeloma. FISH for multiple myeloma came back positive for 4p-, +5, 11q+, -13, 14q-, 16q- and 17cen+. Patient received chemotherapy with CyBorD on July 23, 2016, and he completed 12 courses June 17, 2017. His current IgG lambda dropped from 1.9 to 0.34 currently. Lambda free light chain dropped from 245, and currently 3.47. I am planning to continue Revlimid 10 mg daily. I will see the patient again in a month with CBC, chem panel, LDH, uric acid and myeloma profile. I am planning to continue Zometa monthly for a total of two years. 2. Chronic obstructive pulmonary disease on home oxygen. PLAN 1. Revlimid 10 mg daily. 2. Patient to return in one month with CBC, chem panel, LDH, uric acid and myeloma profile. 3. Zometa monthly for a total of two years. 4. Patient is to contact us for any new concerns or complaints. MTDD
[2017-10-21] MEDS: NS(*) 0.9% 100 ML BAG 100 ML IVPB PRN (09:40)
[2017-10-21 09:55] VITALS: BP 102/72
[2017-10-21 10:05] LABS: PLATELET COUNT, AUTOMATED 135 K/uL (150-450)
[2017-10-21 11:16] VITALS: BP 105/78
--- NOTE | 2017-10-21 16:09 | ONCOLOGY FOLLOW UP NOTE ---
EVENT DATE: October 21, 2017 DIAGNOSES 1. Multiple myeloma. 2. Normochromic, normocytic anemia. 3. Hypercholesterolemia. 4. Chronic obstructive pulmonary disease. CHIEF COMPLAINT Patient is here today for followup of his multiple myeloma on maintenance Revlimid therapy. ONCOLOGY HISTORY The patient is a 76-year-old male who had history of emphysema and hypercholesterolemia. He had a normal CBC in July 2014. The patient was found lately to have anemia. His blood count on April 15, 2016 showed white count 7.1, hemoglobin 10.9, hematocrit 33.3%, platelets 272,000 and MCV normal at 90. His serum creatinine was 1.71 at that time and his glomerular filtration rate was 39 mL/min. Soluble transferrin receptor assay was normal at 4.3. Serum iron was 62. TIBC was 261. Iron saturation 23.8. Ferritin was 139. So, all his iron studies were within the normal range. EPO level was mildly elevated at 47; red cell folate was normal at 1252; serum folate was normal at more than 22. B12 was 360. Methylmalonic acid assay was normal at 0.25. Haptoglobin was high at 287. Repeat CBC showed hemoglobin 11.2, hematocrit 33, platelets 246,000, white count 7.3. Serum protein electrophoresis showed monoclonal protein of 1.95, but unfortunately no immunofixation was done. Bone marrow aspiration biopsy done on June 25, 2016 came back positive for lambda restricted plasmocytosis compatible with plasma cell myeloma with 20 to 40% of the core bone marrow biopsy positive for plasma cells. FISH for myeloma came back positive for 4p-, +5, 11q+, -13, 14q-, 16q-, and 17 adrian+. Skeletal bone survey done on June 25, 2016 did reveal multiple lucencies in the greater trochanter of the left hip and a void lucency seen on the lateral view of the skull in the frontal region. The patient started treatment with CyBorD chemotherapy on July 23, 2016. Patient finished his chemotherapy with CyBorD on June 17, 2017, and he started maintenance Revlimid therapy June 2017. HISTORY OF PRESENT ILLNESS Patient is here today for followup of his multiple myeloma on maintenance Revlimid therapy. He is doing fine currently, except for nausea and constipation. He has a weak stream of urine. He has right hip pain and sciatic pain down along his right lower extremity. PAST MEDICAL HISTORY 1. Hypercholesterolemia. 2. Emphysema. 3. Tobacco abuse. 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 5. Tinnitus. 6. Histor of fractured femur. PAST SURGICAL HISTORY 1. Bilateral cataract surgery 2002. 2. In 2014, foreign body removed from the foot. 3. Double hernia repair in 2001. 4. Fracture repair of the femur in 1956. 5. In 2004, he had fracture of the right arm. FAMILY HISTORY Negative for cancer or blood diseases. SOCIAL HISTORY The patient is with four children, three living. 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 He smokes about one pack a day for sixty years. He seldom drinks, once or twice per year. He denies any abuse of illicit drugs. CURRENT MEDICATIONS 1. Lovastatin 20 mg daily. 2. Baby aspirin 81 mg daily. 3. Revlimid 10 mg daily. ALLERGIES No known drug allergies. REVIEW OF SYSTEMS CONSTITUTIONAL: No appetite or weight change. No fever, chills or sweating. No recent infection. HEENT: Ears: No tinnitus or hearing problem. Nose: No nasal discharge or epistaxis. Throat: No sore throat or mouth ulcers. Eyes: No diplopia or visual changes. RESPIRATORY: Patient has cough with expectoration of thick phlegm. CARDIOVASCULAR: No chest pain, orthopnea, or paroxysmal nocturnal dyspnea (PND) . No edema. No palpitations. GASTROINTESTINAL: He has nausea and constipation. GENITOURINARY: He has a weak stream. No hematuria or dysuria. MUSCULOSKELETAL: He has right hip pain and right sciatic pain along the right lower extremity. NEUROLOGICAL: Patient has tingling and numbness in the feet. HEMATOLOGIC/LYMPHATIC: He is weak, tired and fatigued. No enlarged lymph nodes. SKIN: No skin rash or lumps. PSYCHIATRIC: No anxiety or depression. PHYSICAL EXAMINATION GENERAL: Looks stable. Well-developed, well-nourished, and in no acute distress. VITAL SIGNS: Blood pressure 102/72, pulse 64 per minute, respirations 16 per minute, temperature 98, pulse ox 96% on 3L oxygen. HEENT: Head: Atraumatic. No sinus tenderness to palpation. Eyes: No icterus or conjunctivitis. Mouth and throat: No oral thrush or mucositis. NECK: Supple. No cervical or supraclavicular lymphadenopathy. LUNGS: Clear to auscultation and percussion bilaterally. HEART: Regular rate and rhythm. No gallops, murmurs, clicks or rubs. ABDOMEN: Soft and lax. No tenderness. No hepatosplenomegaly. No masses. EXTREMITIES: There is minimal ankle edema. LYMPHATICS: No peripheral lymphadenopathy. NEUROLOGICAL: Conscious, alert and oriented times three. No focal motor or sensory deficits. PSYCHIATRIC: Mood and affect appear normal. SKIN: No skin rash, bruise or purpuric eruption. DIAGNOSTIC DATA Pending. ASSESSMENT 1. Multiple myeloma with IgG lambda monoclonal protein. Initial level was 1.9 g/dL. Beta-2 microglobulin was 4.7. [place] free light chain was normal, while lambda free light chain was high at 245. Skeletal bone survey showed multiple lucencies in the greater trochanter of the hip and the skull. Bone marrow aspiration biopsy June 25, 2016 revealed 20% to 40% lambda restricted plasmacytosis consistent with multiple myeloma. FISH for multiple myeloma came back positive for 4p-, +5, 11q+, -13, 14q-, 16q- and 17cen+. Patient received chemotherapy with CyBorD on July 23, 2016, and he completed 12 courses June 17, 2017. His IgG lambda monoclonal protein dropped from 1.9 to 0.34 g/ dL with his last visit. His level for today is pending. His lambda free light chain dropped from 245 to 3.47. I am planning to continue Revlimid 10 mg daily. I will see him again in a month with CBC, chem panel, LDH, uric acid and myeloma profile. I will also continue Zometa monthly for a total of two years. 2. Right sciatic pain and right hip pain. I am planning to get MRI of the lumbar spine. 3. Constipation. I am planning to add milk of magnesia 30 mL as needed for constipation. 4. Chronic obstructive pulmonary disease on home oxygen. PLAN 1. Revlimid 10 mg daily. 2. Milk of magnesia 30 mL p.r.n. for constipation. 3. MRI lumbar spine. 4. Patient to return in one month with CBC, chem panel, LDH, uric acid and myeloma profile. 5. Continue Zometa monthly for a total of two years. 6. Patient to contact us for any new concerns or complaints. [facility]
[~2017-11-18] VITALS: Ht 182.9 cm; Wt 82.4 kg
[~2017-11-18 08:36] MED LIST changes: +DEXTROSE 5%(*) 100 ML BAG 100 ML IVPB PRN; +NS 0.9% IVPB ONE; +ZOLEDRONIC ACID IVPB ONE
[2017-11-18 09:07] LABS: PLATELET COUNT, AUTOMATED 102 K/uL (150-450)
[2017-11-18 09:54] VITALS: BP 86/66
[2017-11-18] MEDS: LIDOCAINE/SOD BICARB 8.4% SYR ID PRN (09:57)
[2017-11-18] MEDS: NS(*) 0.9% 100 ML BAG 100 ML IVPB PRN (09:57)
[2017-11-18] MEDS ORDERED: NS 0.9% IVPB ONE (10:15)
[2017-11-18] MEDS ORDERED: ZOLEDRONIC ACID IVPB ONE (10:15)
[2017-11-18 12:25] VITALS: BP 112/84
--- NOTE | 2017-11-18 18:24 | ONCOLOGY FOLLOW UP NOTE ---
EVENT DATE: November 18, 2017 DIAGNOSES 1. Multiple myeloma. 2. Normochromic, normocytic anemia. 3. Hypercholesterolemia. 4. Chronic obstructive pulmonary disease. CHIEF COMPLAINT Patient is here today for followup of his multiple myeloma on maintenance Revlimid therapy. ONCOLOGY HISTORY The patient is a 76-year-old male who had history of emphysema and hypercholesterolemia. He had a normal CBC in July 2014. The patient was found lately to have anemia. His blood count on April 15, 2016 showed white count 7.1, hemoglobin 10.9, hematocrit 33.3%, platelets 272,000 and MCV normal at 90. His serum creatinine was 1.71 at that time and his glomerular filtration rate was 39 mL/min. Soluble transferrin receptor assay was normal at 4.3. Serum iron was 62. TIBC was 261. Iron saturation 23.8. Ferritin was 139. So, all his iron studies were within the normal range. EPO level was mildly elevated at 47; red cell folate was normal at 1252; serum folate was normal at more than 22. B12 was 360. Methylmalonic acid assay was normal at 0.25. Haptoglobin was high at 287. Repeat CBC showed hemoglobin 11.2, hematocrit 33, platelets 246,000, white count 7.3. Serum protein electrophoresis showed monoclonal protein of 1.95, but unfortunately no immunofixation was done. Bone marrow aspiration biopsy done on June 25, 2016 came back positive for lambda restricted plasmocytosis compatible with plasma cell myeloma with 20 to 40% of the core bone marrow biopsy positive for plasma cells. FISH for myeloma came back positive for 4p-, +5, 11q+, -13, 14q-, 16q-, and 17 adrian+. Skeletal bone survey done on June 25, 2016 did reveal multiple lucencies in the greater trochanter of the left hip and a void lucency seen on the lateral view of the skull in the frontal region. The patient started treatment with CyBorD chemotherapy on July 23, 2016. Patient finished his chemotherapy with CyBorD on June 17, 2017, and he started maintenance Revlimid therapy June 2017. HISTORY OF PRESENT ILLNESS Patient is here today for followup of his multiple myeloma on maintenance Revlimid therapy. He is complaining of constipation for which he is using stool softener and milk of magnesia with control. He has pain in the thighs, especially on standing up. He has some neuropathy with numbness in his hands and feet. He is weak, tired and fatigued. PAST MEDICAL HISTORY 1. Hypercholesterolemia. 2. Emphysema. 3. Tobacco abuse. 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 5. Tinnitus. 6. Histor of fractured femur. PAST SURGICAL HISTORY 1. Bilateral cataract surgery 2002. 2. In 2014, foreign body removed from the foot. 3. Double hernia repair in 2001. 4. Fracture repair of the femur in 1956. 5. In 2004, he had fracture of the right arm. FAMILY HISTORY Negative for cancer or blood diseases. SOCIAL HISTORY The patient is with four children, three living. 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 He smokes about one pack a day for sixty years. He seldom drinks, once or twice per year. He denies any abuse of illicit drugs. CURRENT MEDICATIONS 1. Lovastatin 20 mg daily. 2. Baby aspirin 81 mg daily. 3. Revlimid 10 mg daily. ALLERGIES No known drug allergies. REVIEW OF SYSTEMS CONSTITUTIONAL: No appetite or weight change. No fever, chills or sweating. No recent infection. HEENT: Ears: No tinnitus or hearing problem. Nose: No nasal discharge or epistaxis. Throat: No sore throat or mouth ulcers. Eyes: No diplopia or visual changes. RESPIRATORY: Patient has cough with expectoration of thick phlegm. CARDIOVASCULAR: No chest pain, orthopnea, or paroxysmal nocturnal dyspnea (PND) . No edema. No palpitations. GASTROINTESTINAL: He has constipation. GENITOURINARY: He has a weak stream. No hematuria or dysuria. MUSCULOSKELETAL: He has pain in the thighs, especially on standing up. NEUROLOGICAL: Patient has numbness in the hands and feet. HEMATOLOGIC/LYMPHATIC: He is weak and fatigued. No enlarged lymph nodes. SKIN: No skin rash or lumps. PSYCHIATRIC: No anxiety or depression. PHYSICAL EXAMINATION GENERAL: Looks stable. Well-developed, well-nourished, and in no acute distress. VITAL SIGNS: Blood pressure 86/66, pulse 56 per minute, respirations 16 per minute, temperature 98.6, pulse ox 97% on room air. HEENT: Head: Atraumatic. No sinus tenderness to palpation. Eyes: No icterus or conjunctivitis. Mouth and throat: No oral thrush or mucositis. NECK: Supple. No cervical or supraclavicular lymphadenopathy. LUNGS: Clear to auscultation and percussion bilaterally. HEART: Regular rate and rhythm. No gallops, murmurs, clicks or rubs. ABDOMEN: Soft and lax. No tenderness. No hepatosplenomegaly. No masses. EXTREMITIES: There is minimal ankle edema. LYMPHATICS: No peripheral lymphadenopathy. NEUROLOGICAL: Conscious, alert and oriented times three. No focal motor or sensory deficits. PSYCHIATRIC: Mood and affect appear normal. SKIN: No skin rash, bruise or purpuric eruption. DIAGNOSTIC DATA White count 3.7, hemoglobin 13.2, hematocrit 37.2, platelets 102,000. Chem panel totally normal, except uric acid 2.9, creatinine 1.5 and AST 37. Beta-2 microglobulin is 3, kappa free light chain is 2.94, lambda free light chain is 3.11, kappa to lambda free light chain ratio is 0.95. IgG level was 615, IgA is 101, IgM 25, serum protein immunoelectrophoresis showed monoclonal band of IgG lambda 0.36 g/dL. PET CT scan done on November 17, 2017 did not show any evidence of abnormal bone marrow hypermetabolism. There was mild hypermetabolism of mediastinal and hilar lymph nodes could be due to reactive inflammation. ASSESSMENT 1. Multiple myeloma with IgG lambda monoclonal protein. Initial level was 1.9 g/dL. Beta-2 microglobulin was 4.7. [place] free light chain was normal, while lambda free light chain was high at 245. Skeletal bone survey showed multiple lucencies in the greater trochanter of the hip and the skull. Bone marrow aspiration biopsy June 25, 2016 revealed 20% to 40% lambda restricted plasmacytosis consistent with multiple myeloma. FISH for multiple myeloma came back positive for 4p-, +5, 11q+, -13, 14q-, 16q- and 17cen+. Patient received chemotherapy with CyBorD on July 23, 2016, and he completed 12 courses June 17, 2017. His IgG lambda monoclonal protein dropped from 1.9, and currently 0.36 g/dL, which is stable. His level for today is pending. His lambda free light chain dropped from 245 and currently 3.11. I am planning to continue Revlimid 10 mg daily. His PET scan did not show any activity in his bones or bone marrow. 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 Narayan Carcamo, and I will fax the results of the PET scan to him. I will see the patient again in a month with CBC, chem panel, LDH, uric acid and myeloma profile. I will continue Zometa monthly for a total of two years. 2. Right sciatic pain and right hip pain. MRI of the lumbar spine showed degenerative disease. Patient is going to have a surgical procedure by Dr. Narayan Carcamo soon. 3. Constipation. Under control with milk of magnesia as needed for constipation. 4. Chronic obstructive pulmonary disease on home oxygen. PLAN 1. Revlimid 10 mg daily. 2. Milk of magnesia 30 mL p.r.n. for constipation. 3. Patient to return in one month with CBC, chem panel, LDH, uric acid and myeloma profile. 4. Continue Zometa monthly for a total of two years. 5. Patient to contact us for any new concern or complaints. [facility]
[2017-11-25] MEDS ORDERED: ZOLE4VIA IV (14:10)
[2017-12-11] MEDS ORDERED: DOCU240C84 PO (11:21)
[2017-12-11] MEDS ORDERED: LOR5/325 PO (11:21)
[2017-12-11] MEDS ORDERED: DIA5 PO (11:22)
[2017-12-11] MEDS ORDERED: BETH25TA43 PO (11:23)
[2017-12-11] MEDS ORDERED: TAMS0.4C25 PO (11:23)
== END 2017-12-14 ==
LOC: SPU 08:36
PROVIDERS: ATTEND Internal Medicine Hematology
DX: C90.02 Multiple myeloma in relapse (principal); E88.09 Other disorders of plasma-protein metabolism, not elsewhere classified; D64.9 Anemia, unspecified; J44.9 Chronic obstructive pulmonary disease, unspecified; Z92.21 Personal history of antineoplastic chemotherapy; R53.1 Weakness; R53.83 Other fatigue; E78.00 Pure hypercholesterolemia, unspecified
CPT/HCPCS: 36415; 71046; 81001; 82232; 83615; 83883; 84550; 85025; 86334; 93005; 96365; J3489; J7050; 82040; 82247; 82310; 82374; 82435; 82565; 82947; 84075; 84132; 84155; 84295; 84450; 84460; 84520

== ENCOUNTER → 2017-11-18 | Outpatient (CLI) | payer MEDICARE, OTHER ==
[2016-07-05 13:51] VITALS: BMI 22.5
[~2017-11-18] MED LIST changes: -GADOBENATE 529MG/1ML 15ML VIAL IVP ONE
--- NOTE | 2017-11-18 13:05 | RADIOLOGY IMAGING REPORT ---
FACILITY: [facility] [place] PATIENT NAME: Williams Munoz : 1940 MR: [id number] V: [id number] EXAM DATE: ORDERING PHYSICIAN: GRISEL REID TECHNOLOGIST: Location: [facility] Patient: Williams Munoz : 1940 Visit/Account:[id number] Date of Sevice: 11/18/2017 Exam type: CHEST PA AND LAT History: COPD, hypercholesterolemia, preop Comparison: July 09, 2016. Findings: There is a small amount of by basilar scarring. There is no evidence of acute appearing infiltrates, pleural effusions or overt pulmonary edema. No evidence of a pneumothorax or pneumomediastinum. Th e cardiac silhouette is normal in size. The trachea is midline. IMPRESSION: 1. Mild by basilar scarring although no evidence of acute pulmonary consolidation Report Dictated By: Virginia Daniel MD at 11/18/2017 1:01 PM Report E-Signed By: Virginia Daniel MD at 11/18/2017 1:02 PM WSN:[email or web address]
--- NOTE | 2017-11-19 08:10 | EKG ---
FACILITY: [facility] [place] PATIENT NAME: ALEXIA PABON : [id number] MR: [id number] V: [id number] EXAM DATE: ORDERING PHYSICIAN: GRISEL REID TECHNOLOGIST: Test Reason : Blood Pressure : / mmHG Vent. Rate : 065 BPM Atrial Rate : 065 BPM P-R Int : 176 ms QRS Dur : 084 ms QT Int : 424 ms P-R-T Axes : 000 066 058 degrees QTc Int : 440 ms Sinus rhythm with premature atrial complexes Otherwise normal ECG No previous ECGs available Confirmed by TATUM RODRIGUEZ ([id number]) on 11/19/2017 11:27:55 AM Referred By: Confirmed By:TATUM RODRIGUEZ
== END ==
LOC: LAB 10:49
PROVIDERS: ATTEND Internal Medicine
DX: I49.1 Atrial premature depolarization (principal); R91.8 Other nonspecific abnormal finding of lung field
CPT/HCPCS: 71046; 81001; 93005

== ENCOUNTER 2017-12-06 00:54 | Inpatient (IN) | payer MEDICARE, OTHER ==
[2016-07-05 13:51] VITALS: Ht 177.8 cm; Wt 78.9 kg
[2017-12-06] VITALS (17 sets, daily range): BP systolic 93–149; BP diastolic 54–93
[~2017-12-06] VITALS: Ht 177.8 cm; Wt 78.9 kg
[~2017-12-06 00:54] MED LIST changes: -DEXTROSE 5%(*) 100 ML BAG 100 ML IVPB PRN; -NS 0.9% IVPB ONE; +ZOLE4VIA IV; -ZOLEDRONIC ACID IVPB ONE
[2017-12-06] MEDS ORDERED: NORMOSOL R SOLN(*) 1000 ML BAG 1,000 ML IV PRN (06:00)
[2017-12-06] MEDS ORDERED: ceFAZolin(*) 2GM/D5W 50ML 50 ML IVPB ONE (06:00)
[2017-12-06] MEDS ORDERED: FAMOTIDINE 20 MG TAB PO ONE (06:00)
[2017-12-06] MEDS ORDERED: MIDAZOLAM 2 MG/2 ML VIAL IVP PRN (06:00)
[2017-12-06] MEDS ORDERED: ACETAMINOPHEN 500 MG TAB PO ONE (06:00)
[2017-12-06] MEDS ORDERED: PREGABALIN 75 MG CAPSULE PO ONE (06:00)
[2017-12-06] MEDS ORDERED: LIDOCAINE/SOD BICARB 8.4% SYR ID ONE (06:00)
[2017-12-06] MEDS ORDERED: THROMBIN (BOVINE) 20,000 UNIT VIAL ONE (06:28)
[2017-12-06] MEDS ORDERED: fentaNYL CITR 100 MCG/2 ML AMP ONE ×3 (06:36→11:15)
[2017-12-06] MEDS ORDERED: ROCURONIUM BROM 10 MG/ML 10 ML ONE (06:37)
[2017-12-06] MEDS ORDERED: LIDOCAINE MPF 1% 5 ML VIAL ONE (06:37)
[2017-12-06] MEDS ORDERED: PROPOFOL EMUL(*) 10MG/ML 20 ML 20 ML ONE (06:37)
[2017-12-06] MEDS ORDERED: DEXAMETHASONE SOD PHOS 10MG/ML ONE (06:37)
[2017-12-06] MEDS ORDERED: ONDANSETRON 4 MG/2 ML VIAL ONE (06:37)
[2017-12-06] MEDS ORDERED: D5W(*) 500 ML BAG 500 ML IV ONE ×3 (06:40→06:46)
[2017-12-06] MEDS ORDERED: REMIFENTANIL HCL 1 MG VIAL ONE ×2 (06:44→09:21)
[2017-12-06] MEDS ORDERED: GLYCOPYRROLATE 1 MG/5 ML INJ ONE (07:27)
[2017-12-06] MEDS ORDERED: PHENYLEPHRINE/NS/PF 0.4MG/10ML ONE ×2 (07:30)
[2017-12-06] MEDS ORDERED: SUGAMMADEX SOD 500 MG/5 ML SDV ONE (10:04)
--- NOTE | 2017-12-06 10:33 | RADIOLOGY IMAGING REPORT ---
FACILITY: [facility] PATIENT NAME: Williams Munoz : 1940 MR: [id number] V: [id number] EXAM DATE: ORDERING PHYSICIAN: KIMMIE ELLIS TECHNOLOGIST: Location: [facility] Patient: Williams Munoz : 1940 Visit/Account:[id number] Date of Sevice: 12/06/2017 Exam type: LUMBAR SPINE 1 VIEW History: LUMBAR DISC HERNIATION/FUSION Comparison: MRI lumbar spine October 22, 2017. Findings: Two portable prone cross table lateral views lumbar spine were significant for interpretation. Assum ing the patient has five lumbar type vertebral bodies: on the first image a metallic probe projects o jolly the posterior spinous process of L2. Image two demonstrates pedicle screws at L4 and L5. Surgic al instruments also noted over the operative field on this intraoperative study IMPRESSION: 1. As above Report Dictated By: Virginia Daniel MD at 12/06/2017 10:27 AM Report E-Signed By: Virginia Daniel MD at 12/06/2017 10:30 AM WSN:[email or web address]
[2017-12-06] MEDS ORDERED: LR(*) 1000 ML BAG 1,000 ML ONE (10:46)
[2017-12-06] MEDS ORDERED: HYDROmorphone HCL 2 MG/ML SDV ONE (11:01)
[2017-12-06] MEDS ORDERED: MAGNESIUM HYDROXIDE* 30ML UDCP PO PRN (11:30)
[2017-12-06] MEDS ORDERED: ACETAMINOPHEN(*)1000 MG/100 ML 100 ML IVPB PRN (11:30)
[2017-12-06] MEDS ORDERED: FLUSH 10 ML SYR IVP PRN (11:30)
[2017-12-06] MEDS ORDERED: diphenhydrAMINE 25 MG CAP PO PRN (11:30)
[2017-12-06] MEDS ORDERED: LR(*) 1000 ML BAG 1,000 ML IV PRN (11:30)
[2017-12-06] MEDS ORDERED: BISACODYL 10 MG SUPP PR PRN (11:30)
[2017-12-06] MEDS ORDERED: DIAZEPAM 5 MG TAB PO PRN (11:30)
[2017-12-06] MEDS ORDERED: ONDANSETRON 4 MG/2 ML VIAL IVP PRN (11:30)
--- NOTE | 2017-12-06 12:27 | OPERATIVE REPORT 1 ---
EVENT DATE: December 06, 2017 SURGEON: Narayan Carcamo MD ANESTHESIOLOGIST: Clovis Gottlieb MD ANESTHESIA: General endotracheal anesthesia. TECHNICAL ADMINISTRATIVE ASSISTANT: Zac Silveira PA-C PREOPERATIVE DIAGNOSIS Multi-level lumbar degenerative disk disease with L2 to L5 stenosis and L4-L5 degenerative spondylolisthesis. POSTOPERATIVE DIAGNOSIS Multi-level lumbar degenerative disk disease with L2 to L5 stenosis and L4-L5 degenerative spondylolisthesis. PROCEDURE PERFORMED L2 to L5 laminectomy with L4-L5 posterolateral instrumented fusion. INTRAVENOUS FLUIDS 2100 mL ESTIMATED BLOOD LOSS 120 mL IMPLANTS USED Pedicle screws 6.5 mm x 50 mm from [employer] times two, 6.5 mm x 45 mm pedicle screws from [employer] times two, 5.5 mm x 40 mm connecting rods from [employer] times two, and locking caps from [employer] times four. SPECIMENS None. DRAINS None. COMPLICATIONS None. DISPOSITION Post-anesthesia care unit. INDICATIONS FOR SURGERY Mr. Munoz is a 76-year-old gentleman who presented to my clinic with complaint of bilateral lower extremity pain, numbness, and tingling. He also had weakness and heaviness in his legs with any attempts at prolonged walking leading to significant decreasing walking tolerance. His physical examination was essentially normal with normal strength and sensation in bilateral lower extremities. He had some decreased extension, however. His imaging studies showed a mild anterolisthesis of L4 on L5 with severe spinal stenosis at L3-L4, L4-L5, and moderately severe stenosis at L2-L3. Secondary to ongoing symptoms and failure of nonsurgical care, Mr. Munoz was offered and elected to undergo L2 to L5 laminectomy with L4-L5 posterolateral instrumented fusion. Prior to surgery, I explained in detail to the patient the possible risks of surgery. These included bleeding, infection, damage to surrounding structures, nerve root injury, spinal fluid leak, meningitis, persistent and/or worsening pain, need for further surgery, , blindness, sexual dysfunction, autonomic nervous system dysfunction, and other unforeseen medical and surgical complications. An understanding that spinal surgery is more predictive at improving extremity discomfort than axial spine pain was stressed. DESCRIPTION OF PROCEDURE On the date of surgery, the patient was met in the preoperative hold area, and all questions were answered. The operative site was identified and marked by myself. Patient was brought in good condition to the operating room, and after succumbing to anesthesia, was positioned in the prone position on a Tra table. All bony protuberances and soft tissues were well padded in the standard fashion. Care was taken to maintain appropriate perfusion pressures during anesthesia. Preoperative antibiotics were administered according to the appropriate timing schedule. At the conclusion of the procedure, sponge and needle counts were correct times two. A final timeout was undertaken by members of the operating team to confirm correct patient, correct levels, and correct surgery. The patient was then prepped and draped in the standard sterile orthopedic fashion. An incision was made over the intended spinal levels, and sharp dissection was carried out down to the posterior elements. A lateral radiograph was obtained to confirm appropriate spinal level. The lumbodorsal fascia was incised just lateral to the spinous processes both on the left and the right from L2 down to L5. Soft tissues were elevated off the posterior elements in a subperiosteal manner. We then utilized electrocautery to clear off the lamina of all involved levels, and at L4 and L5, we also cleared off the pars interarticularis and out to the tips of the transverse processes of both of those levels. Thrombin-soaked cigars were packed into those lateral gutters, and attention was then turned to the laminectomy. The spinous processes of L2, L3, and L4 were removed with a combination of a [place] rongeur and the [employer] bone cutter. The lamina was thinned in the midline with a combination of the [place] rongeur and a high-speed gerry. The canal was entered by the superior insertion of the lumen and flavum from the inferior aspect of the L4 lamina. The [place] elevator was used to separate any dural adhesions from surrounding bone and soft tissue prior to use of a Kerrison punch. A midline decompression was performed using a combination of the high-speed gerry and the #4 Kerrison punch. Bilateral lateral recess decompressions were then performed at L2-L3, L3-L4, and L4-L5. At the conclusion of the decompression, a [place] elevator and a Perez probe were passed down the lateral gutters to ensure no persistent compression and also passed out the foramina of all involved nerve roots, again ensuring no significant compression was present. FloSeal and patties were used to control the lateral recess bleeding, and attention was then turned to the fusion portion of the procedure. Starting points for pedicle screws were identified bilaterally at L4 and L5. This was at approximately the intersection of the pars interarticularis, the mid point of the transverse process, and the lateral aspect of the superior articular process. The 5 mm high-speed gerry was used to decorticate the starting point, and a Lenke-type probe was then advanced against resistance through the isthmus of the pedicle. A ball-tipped feeler was used to palpate the pedicle superiorly, inferiorly, medially, laterally, as well as distally to confirm absence of bony breaching. The appropriate length pedicle screws were then selected, specifically 6.5 mm x 50 mm screws for the L4 level and 6.5 mm x 45 mm screws for the L5 level. These were inserted, and then neurophysiologic testing was used on each screw, all of which tested above 20 mA. The wound was then irrigated with copiously sterile saline solution, and a lateral radiograph confirmed good positioning of the screws. Connecting rods 40 mm were selected and placed within the [place], and then locking caps were applied, tightened, and finally tightened. The transverse processes of L4 and L5 were decorticated bilaterally with a high-speed gerry, and then previously milled local bone was packed into the lateral gutters bilaterally. The wound was then closed in layers using interrupted sutures for the deep fascia, interrupted sutures for the subcutaneous tissue, and a running subcuticular skin stitch. Sponge and needle counts were correct times two. POSTOPERATIVE CARE PLAN Mr. Munoz will remain in the hospital until he meets discharge criteria. He will follow up in my clinic in two weeks' time for repeat x-rays and an examination. JYOTSNA
--- NOTE | 2017-12-06 12:43 | Hospitalist Consultation ---
History of Present Illness Requesting Physician Dr. Carcamo Reason for Consult Medical Management Chief Complaint s/p lumbar fusion History of Present Illness He was admitted s/p lumbar fusion. It is reported the surgery went well and without complication. History Problems: (1) Pre-diabetes Status: Acute (2) Multiple myeloma Status: Acute (3) Normocytic anemia Status: Acute (4) Acute renal failure Status: Acute (5) COPD (chronic obstructive pulmonary disease) Status: Chronic (6) Pure hypercholesterolemia Status: Chronic Home Meds Active Scripts Lovastatin (LOVASTATIN) 20 Mg Tablet, 1 TAB PO QDAY, #90 TAB 4 Refills Prov:GRISEL REID MD 08/13/17 Pyridoxine Hcl (VITAMIN B-6) 100 Mg Tablet, 1 TAB PO BID, #60 TAB Prov:GRISEL REID MD 08/07/17 Metformin Hcl (METFORMIN HCL) 500 Mg Tablet, 1 TAB PO QDAY, #90 TAB 3 Refills Prov:GRISEL REID MD 05/05/17 Triamcinolone Acetonide 0.1% Cr 15 Gm Tube (TRIAMCINOLONE ACETONIDE 0.1% CREAM) 15 Gm Cream..g., 1 YOLY TP BID Y for Psoriasis, #1 TUBE 5 Refills Prov:GRISEL REID MD 03/18/17 Reported Medications Zoledronic Acid (ZOMETA) 4 Mg/5 Ml Vial, MG IV monthly, VIAL 11/25/17 Lenalidomide (REVLIMID) 10 Mg Capsule, 1 CAP PO QDAY, CAPSULE 06/17/17 Oxygen (OXYGEN) Inha, 3 L INH cont 10/22/16 Multivitamin (MULTI VITAMIN DAILY) 1 Each Tablet, 1 TAB PO DAILY 07/09/16 Aspirin (ASPIR 81) 81 Mg Tablet.dr, 1 TAB PO QDAY, TAB 07/09/16 Discontinued Scripts Lorazepam (ATIVAN) 0.5 Mg Tablet, 1 TAB PO Q4-6H Y for NAUSEA for 30 Days, TAB Prov:GRISEL REID MD 02/11/17 Allergies: Coded Allergies: pineapple (Verified Allergy, Intermediate, ITCHING , 12/01/17) Patient History: Diabetes mellitus (DM) FATHER, , Age:76 MOTHER, Age:98 FH: Alzheimers disease SISTER, Age:75 FH: Parkinson's disease BROTHER, Age:77 FH: chronic lung disease requiring oxygen BROTHER, Age:73 (black lung, school examiner) FH: congestive heart failure MOTHER, Age:98 FH: gallbladder disease BROTHER, Age:77 SISTER, Age:80 SISTER, Age:66 FH: macular degeneration MOTHER, Age:98 Hx Smoking: Yes (1/2 - 1 PPD FOR 60 YRS, QUIT 2017) Smoking Status: Former Smoker Exposure to Second Hand Smoke?: Yes Caffeine Intake: Coffee Caffeine/Cups Per Day: RECENTLY STOPPED DRINKING COFFEE Hx Alcohol Use: Yes Hx Substance Use Disorder: No Social Drug Use: Never Review of Systems All Systems Reviewed/Normal: Yes, Except as Noted Exam Vital Signs Vital Signs Date Time Temp Pulse Resp B/P (MAP) Pulse Ox O2 Delivery O2 Flow Rate FiO2 12/06/17 11:40 52 12 92 12/06/17 05:30 98.4 114/71 (85) Nasal Cannula 3.0 General Appearance: Alert, Awake, No Acute Distress, Afebrile Neuro: No Gross deficits Cardiovascular: Regular Rate and Rhythm Respiratory: No Respiratory Distress, Clear to Auscultation Extremities: No Edema Psych: Alert & Oriented X3, Appropriate Mood & Affect Assessment and Plan Problems: (1) S/P lumbar fusion Status: Acute Assessment & Plan: Followed by Dr. Carcamo. (2) Multiple myeloma Status: Acute Assessment & Plan: He is on chronic treatment with Zometa infusions monthly and Revlimid daily. We have restarted his oral chemotherapy. (3) Pre-diabetes Status: Acute Assessment & Plan: He is on treatment with Metformin. This will be restarted tomorrow. (4) Normocytic anemia Status: Acute Assessment & Plan: He has some anemia present prior to surgery. He will have a CBC checked tomorrow morning. (5) COPD (chronic obstructive pulmonary disease) Status: Chronic Assessment & Plan: He is on chronic treatment with oxygen 3L at all times. (6) Elevated serum creatinine Status: Acute Assessment & Plan: He had serum creatinine of 1.5 prior to surgery. We will recheck BMP in the morning. Venous Thromboembolism Antithrombotics Is Pt On Any Antithrombotics?: No Prophylaxis Tx Contraindicated Pharmacological Contraindicati: Surgical Contraindication THUY QUIROZ [facility] Dec 06, 2017 12:43
[2017-12-06] MEDS: ceFAZolin(*) 2GM/D5W 50ML 50 ML IVPB SCH ×2 (14:42→23:09)
[2017-12-06] MEDS: LENALIDOMIDE PO SCH (17:31)
[2017-12-06] MEDS ORDERED: INSULIN HUM LISPRO 100 UN/ML 3 ML VIAL SUBQ PRN (20:10)
[2017-12-06] MEDS: LOVASTATIN 20 MG TAB PO SCH (20:20)
[2017-12-06] MEDS: oxyCODONE HCL 5 MG CAP PO PRN ×2 (20:20→23:46)
[2017-12-06] MEDS: DOCUSATE SODIUM 100 MG CAP PO SCH (20:20)
[2017-12-06] MEDS: HYDROmorphone HCL 2 MG/ML SDV IVP PRN ×2 (21:50→22:16)
[2017-12-06] MEDS: chlorproMAZINE 25 MG TAB PO PRN (23:11)
[2017-12-07] MEDS: HYDROmorphone HCL 2 MG/ML SDV IVP PRN (00:40)
[2017-12-07 03:05] VITALS: BP 107/73
[2017-12-07 05:45] LABS: PLATELET COUNT, AUTOMATED 105 K/uL (150-450)
[2017-12-07] MEDS: ceFAZolin(*) 2GM/D5W 50ML 50 ML IVPB SCH (07:00)
[2017-12-07 08:13] VITALS: BP 105/65
[2017-12-07] MEDS: oxyCODONE HCL 5 MG CAP PO PRN ×3 (08:32→20:52)
[2017-12-07] MEDS: BENZOCAINE/MENTHOL 1 EACH LOZG PO PRN (08:37)
[2017-12-07] MEDS: chlorproMAZINE 25 MG TAB PO PRN ×2 (08:41→20:51)
--- NOTE | 2017-12-07 08:57 | Hospitalist Progress Note ---
Subjective Progress Notes Subjective He has complaints of sore throat today. He states he is having difficulty eating. Patient Complains of: Cardiovascular: No: Chest Pain Respiratory: No: Shortness of Breath Physical Exam Vital Signs Date Time Temp Pulse Resp B/P (MAP) Pulse Ox O2 Delivery O2 Flow Rate FiO2 12/07/17 08:13 98.9 82 105/65 (78) 92 Nasal Cannula 4.0 12/07/17 03:05 16 General Appearance: Alert, Awake, No Acute Distress, Afebrile Neuro: No Gross deficits Cardiovascular: Regular Rate and Rhythm Respiratory: No Respiratory Distress, Clear to Auscultation Extremities: Perfused, No Edema Psych: Alert & Oriented X3, Appropriate Mood & Affect Result Diagram: 12/07/1753012/07/17530 Assessment and Plan Problems: (1) S/P lumbar fusion Status: Acute Assessment & Plan: Followed by Dr. Carcamo. (2) Multiple myeloma Status: Acute Assessment & Plan: He is on chronic treatment with Zometa infusions monthly and Revlimid daily. We have restarted his oral chemotherapy. (3) Pre-diabetes Status: Acute Assessment & Plan: He is on treatment with Metformin. This will be restarted tomorrow 12/08. He will receive AC/HS blood glucose checks and SS insulin. (4) Normocytic anemia Status: Acute Assessment & Plan: He has some anemia present prior to surgery. (5) COPD (chronic obstructive pulmonary disease) Status: Chronic Assessment & Plan: He is on chronic treatment with oxygen 3L at all times. (6) Elevated serum creatinine Status: Acute Assessment & Plan: He had serum creatinine of 1.5 prior to surgery. Creatinine today 1.6. Exam Sepsis Risk: No Definite Risk THUY QUIROZ [employer] RECORDS SUPERVISOR Dec 07, 2017 08:57
[2017-12-07] MEDS ORDERED: metFORMIN HCL 500 MG TAB PO SCH (09:00)
[2017-12-07] MEDS: DOCUSATE SODIUM 100 MG CAP PO SCH ×2 (09:32→20:51)
[2017-12-07] MEDS: APAP/HYDROCODONE 325/5 TAB PO PRN (09:36)
[2017-12-07 11:20] VITALS: BP 91/62
--- NOTE | 2017-12-07 12:53 | Medical Nutrition Therapy ---
Nutrition Anthropometrics Height (Inches): 70.00 Height (Calculated Centimeters: 177.138091 Weight (Pounds): 174 Weight (Calculated Kilograms): 78.925 BMI: 25 Cresencio Nutrition Score: Adequate Cresencio Nutrition Risk Score: 19 Dietary Referral Nutrition Risk Factors: Nutrition Risk Comment: Physical Findings Physical Appearance: Overweight BMI 25-29 Skin Appearance Skin Appearance: Edema Edema Location Modifier: Edema Location: Type of Edema: Degree of Edema: Gastrointestinal Symptoms GI Symtoms: Nausea Tube Present: Bowel Sounds: Recent Bowel Pattern: Stool Characteristics: Nutritional Diagnosis Nutritional Risk Acuity 3: Nutrit Anemia, Cancer, COPD Unstable Past Medical History: HX of Hyperlipemia, COPD, ARF, anemia, multiple myeloma, pre-diabetes Nutritional Acuity: 1-High Nutrition Diagnosis: Inadequate Vit/Min Intake Nutrition Etiology: Physiological Causes Nutrition Problem/Etiology/Sym: Inadequate sodium intake related to physiological causes as evidence by lab work indicating sodium (131). Energy Requirement: 1991 ([place] [employer] 06/16) Protein Requirement: 63 (.8g/kg) Fluid Requirement: 1975 (25ml/kg pt 77 yrs) Diet Type: Diet as Tolerated KAREN/REG Nutrition Intervention: Cont diet as ordered, Encourage intake Nutrition Monitoring & Eval Nutrition Goals: Eat 50-100% Meal RD Patient Assessment Time: [address] Assessment Type: RD Assessment Patient Nutrition Acuity: 1-High Follow Up Date: Dec 13, 2017 Nutritional Comment: 12/07 Pt admitted for s/p lumbar fusion. Surgery went well. Pt states today he has a sore throat and is having a hard time eating. Pt is on regular diet with 100% oral intake. Pt has low Na (131) and elevated creatinine (1.6). Pt is has pre-diabetes and is on Metformin. Pt may benefit from ADA diet to help manage his diagnosis. Will continue to monitor pt progress, labs and encourage intake. -CHERI HICKEY Dec 07, 2017 09:49
[2017-12-07 16:04] VITALS: BP 114/75
[2017-12-07] MEDS: LENALIDOMIDE PO SCH (17:47)
[2017-12-07 19:23] VITALS: BP 112/65
[2017-12-07] MEDS: LOVASTATIN 20 MG TAB PO SCH (20:51)
[2017-12-07 22:44] VITALS: BP 112/82
[2017-12-08] VITALS (34 sets, daily range): BP systolic 79–130; BP diastolic 44–72
[2017-12-08] MEDS: oxyCODONE HCL 5 MG CAP PO PRN ×2 (02:45→12:37)
[2017-12-08 08:24] LABS: PLATELET COUNT, AUTOMATED 89 K/uL (150-450)
[2017-12-08] MEDS ORDERED: DILTIAZEM 5 MG/ML 5ML IVPUSH IVP ONE (08:30)
--- NOTE | 2017-12-08 08:33 | EKG ---
FACILITY: [facility] - [place] PATIENT NAME: ALEXIA PABON : [id number] MR: [id number] V: [id number] EXAM DATE: ORDERING PHYSICIAN: THUY QUIROZ TECHNOLOGIST: Test Reason : Blood Pressure : / mmHG Vent. Rate : 170 BPM Atrial Rate : 170 BPM P-R Int : 084 ms QRS Dur : 100 ms QT Int : 286 ms P-R-T Axes : 073 072 -53 degrees QTc Int : 480 ms Sinus tachycardia with short ND vs atrial flutter with RVR ST and T wave abnormality, consider inferolateral ischemia Abnormal ECG When compared with ECG of 18-NOV-2017 10:57, premature atrial complexes are no longer present Vent. rate has increased BY 105 BPM T wave inversion now evident in Inferior leads T wave inversion now evident in Lateral leads Confirmed by DAVE MAK ([id number]) on 12/08/2017 11:53:29 AM Referred By: Confirmed By:DAVE MAK
[2017-12-08] MEDS ORDERED: metFORMIN HCL 500 MG TAB PO SCH (09:00)
[2017-12-08] MEDS: chlorproMAZINE 25 MG TAB PO PRN ×3 (09:05→20:23)
[2017-12-08] MEDS: DOCUSATE SODIUM 100 MG CAP PO SCH ×2 (09:05→20:23)
[2017-12-08] MEDS ORDERED: NS(*) 0.9% 1000 ML BAG 1,000 ML IV ONE (09:10)
[2017-12-08] MEDS ORDERED: DILTIAZEM HCL* 100 MG ADDVIAL 100 MG in NS(*) 0.9% 100 ML ADDVANT BAG 100 ML IV SCH (09:21)
--- NOTE | 2017-12-08 09:49 | EKG ---
FACILITY: [facility] PATIENT NAME: ALEXIA PABON : [id number] MR: [id number] V: [id number] EXAM DATE: ORDERING PHYSICIAN: THUY QUIROZ TECHNOLOGIST: BENJAMIN Ayala Reason : Blood Pressure : / mmHG Vent. Rate : 109 BPM Atrial Rate : 109 BPM P-R Int : 160 ms QRS Dur : 082 ms QT Int : 410 ms P-R-T Axes : 059 054 036 degrees QTc Int : 552 ms Multifocal atrial tachycardia Nonspecific ST abnormality Abnormal ECG Compared to previous, now rate is decreased and appears to be in MAT Confirmed by DAVE MAK ([id number]) on 12/08/2017 12:02:36 PM Referred By: Confirmed By:DAVE MAK
--- NOTE | 2017-12-08 11:07 | Hospitalist Progress Note ---
Subjective Progress Notes Subjective He has complaints of fatigue this morning. He states that he still is not eating well, secondary to sore throat. He was noted to have high heart rate this morning. However, he denies chest pain or shortness of breath. He has no other concerns, except for fatigue. Patient Complains of: Cardiovascular: No: Chest Pain Respiratory: No: Shortness of Breath Physical Exam Vital Signs Date Time Temp Pulse Resp B/P (MAP) Pulse Ox O2 Delivery O2 Flow Rate FiO2 12/08/17 10:30 93 124/64 (84) 92 Nasal Cannula 4.0 12/08/17 07:21 98.0 18 Intake and Output 12/09/17 07:00 Intake Total 0 ml Output Total 100 ml Balance -100 ml Intake Oral 0 ml Output Urine Total 100 ml # Voids 1 General Appearance: Alert, Awake, No Acute Distress, Afebrile Neuro: No Gross deficits Cardiovascular: Other (tachycardia up to 170's noted) Respiratory: No Respiratory Distress, Clear to Auscultation Extremities: Perfused, No Edema Psych: Alert & Oriented X3, Appropriate Mood & Affect Result Diagram: 12/08/17 0815 12/08/1715 Assessment and Plan Problems: (1) S/P lumbar fusion Status: Acute Assessment & Plan: Followed by Dr. Carcamo. (2) Multifocal atrial tachycardia Status: Acute Assessment & Plan: He was found to have heart rates from 150-170 variable. He denied chest pain or shortness of breath. EKG was performed. He was given Diltiazem bolus of 20mg, then started on a diltiazem drip. The patient's rate did respond, decreasing into the 90's. The patient was then found to have a bladder outlet obstruction, which could have contributed to the tachycardia. We stopped the diltiazem drip at this time, to evaluate his cardiac status after Hickey catheter was placed and bladder drained. We will not start anticoagulants at this time secondary to his back surgery and to determine if needed from cardiac standpoint. (3) Multiple myeloma Status: Acute Assessment & Plan: He is on chronic treatment with Zometa infusions monthly and Revlimid daily. We have restarted his oral chemotherapy. (4) Pre-diabetes Status: Acute Assessment & Plan: He is on treatment with Metformin. His Metformin has been held today, secondary to decreased appetite and increased creatinine. He will receive AC/HS blood glucose checks and SS insulin. (5) Normocytic anemia Status: Acute Assessment & Plan: He has some anemia present prior to surgery. (6) COPD (chronic obstructive pulmonary disease) Status: Chronic Assessment & Plan: He is on chronic treatment with oxygen 3L at all times. (7) Elevated serum creatinine Status: Acute Assessment & Plan: He had serum creatinine of 1.5 prior to surgery. Creatinine today 1.9. He will receive IV bolus of Normal Saline, then maintenance fluids. Recheck BMP tomorrow. Exam Sepsis Risk: Severe Sepsis Risk THUY QUIROZ [facility] Dec 08, 2017 11:07
[2017-12-08] MEDS ORDERED: NS(*) 0.9% 1000 ML BAG 1,000 ML IV PRN (11:10)
[2017-12-08] MEDS: TAMSULOSIN HCL 0.4 MG CAP PO SCH (12:27)
--- NOTE | 2017-12-08 13:40 | EKG ---
FACILITY: [facility] PATIENT NAME: ALEXIA PABON : [id number] MR: [id number] V: [id number] EXAM DATE: ORDERING PHYSICIAN: THUY QUIROZ TECHNOLOGIST: BENJAMIN Ayala Reason : Blood Pressure : / mmHG Vent. Rate : 099 BPM Atrial Rate : 099 BPM P-R Int : 150 ms QRS Dur : 082 ms QT Int : 448 ms P-R-T Axes : 072 064 045 degrees QTc Int : 574 ms Multifocal atrial tachycardia Nonspecific ST and T wave abnormality Prolonged QT Abnormal ECG When compared with ECG of 08-DEC-2017 09:30, Relatively unchanged Confirmed by DAVE MAK ([id number]) on 12/08/2017 6:55:27 PM Referred By: Confirmed By:DAVE MAK
--- NOTE | 2017-12-08 14:53 | OPERATIVE REPORT 1 ---
EVENT DATE: December 08, 2017 SURGEON: Jacky Coelho MD ANESTHESIA: None. PREOPERATIVE DIAGNOSIS Inability to urinate. Urinary retention following orthopedic procedure. POSTOPERATIVE DIAGNOSIS Inability to urinate. Urinary retention following orthopedic procedure. PROCEDURE PERFORMED Placement of urethral Hickey. DESCRIPTION OF PROCEDURE Under no anesthetic, the patient was prepped in the supine position. Lubrication was placed per urethra. The #15 Coude tip catheter was passed through the urethra into the bladder without any difficulty. The urine was clear after introduction. The Hickey was secured. Hickey was put to gravity drainage. Patient tolerated the procedure satisfactorily and was left in satisfactory condition. Patient felt immediate relief. I will follow with you. Thank you for letting me share in the care of your patient. JYOTSNA
[2017-12-08] MEDS: LENALIDOMIDE PO SCH (17:10)
[2017-12-08] MEDS ORDERED: IV BOLUS 500 ML IVSOL IV ONE (18:15)
[2017-12-08] MEDS: NS(*) 0.9% 1000 ML BAG 1,000 ML IV PRN (19:54)
[2017-12-08] MEDS: LOVASTATIN 20 MG TAB PO SCH (20:23)
[2017-12-09] VITALS (26 sets, daily range): BP systolic 75–121; BP diastolic 41–83
[2017-12-09] MEDS: ACETAMINOPHEN 500 MG TAB PO PRN ×2 (02:09→08:27)
[2017-12-09] MEDS: NS(*) 0.9% 1000 ML BAG 1,000 ML IV PRN ×2 (05:23→20:29)
[2017-12-09 05:58] LABS: PLATELET COUNT, AUTOMATED 77 K/uL (150-450)
[2017-12-09] MEDS ORDERED: SODIUM CHLORIDE 0.9% IV SCH ×2 (07:55→11:36)
[2017-12-09] MEDS ORDERED: DILTIAZEM IV SCH ×2 (07:55→11:36)
[2017-12-09] MEDS ORDERED: KCL (*) 20 MEQ/100 ML PREMIX 100 ML IV ONE (08:00)
[2017-12-09] MEDS: DOCUSATE SODIUM 100 MG CAP PO SCH ×2 (08:27→20:28)
[2017-12-09] MEDS: TAMSULOSIN HCL 0.4 MG CAP PO SCH (08:27)
[2017-12-09] MEDS ORDERED: NS(*) 0.9% 250 ML BAG 250 ML in NS(*) 0.9% 250 ML BAG 250 ML IV ONE (08:40)
--- NOTE | 2017-12-09 10:02 | Hospitalist Progress Note ---
Subjective Progress Notes Subjective He has complaints of fatigue again today. His heart rate has increased into the 150-170 range this morning. He had no acute events over night. Denies chest pain or SOB. Patient Complains of: Cardiovascular: No: Chest Pain Respiratory: No: Shortness of Breath Physical Exam Vital Signs Date Time Temp Pulse Resp B/P (MAP) Pulse Ox O2 Delivery O2 Flow Rate FiO2 12/09/17 09:09 86 12/09/17 09:00 85/49 (61) 12/09/17 08:50 16 Intake and Output 12/10/17 01:00 Intake Total 1815 ml Output Total 2350 ml Balance -535 ml Intake Oral 840 ml IV Total 975 ml Output Urine Total 2350 ml General Appearance: Alert, Awake, No Acute Distress, Afebrile Neuro: No Gross deficits Cardiovascular: Other (tachycardia noted) Respiratory: No Respiratory Distress, Clear to Auscultation GI: Soft and Non-Tender : Other (ramirez present) Extremities: Perfused, No Edema Psych: Alert & Oriented X3, Appropriate Mood & Affect Result Diagram: 12/09/17 0545 12/09/17 0545 Assessment and Plan Problems: (1) S/P lumbar fusion Status: Acute Assessment & Plan: Followed by Dr. Carcamo. (2) Multifocal atrial tachycardia Status: Acute Assessment & Plan: On 12/08/17, he was found to have heart rates from 150-170 variable. He denied chest pain or shortness of breath. EKG performed show multifocal atrial tachycardia. He was given Diltiazem bolus of 20mg, then started on a diltiazem drip. The patient's rate did respond, decreasing into the 90's. The patient was then found to have a bladder outlet obstruction, which could have contributed to the tachycardia. We stopped the diltiazem drip prior to Ramirez insertion, however his heart rates did increase by this morning again. He was restarted on diltiazem drip this morning. We did not start anticoagulants, secondary to the rhythm noted has p waves present. (3) Multiple myeloma Status: Acute Assessment & Plan: He is on chronic treatment with Zometa infusions monthly and Revlimid daily. We have restarted his oral chemotherapy. (4) Pre-diabetes Status: Acute Assessment & Plan: He is on treatment with Metformin. His Metformin has been held, secondary to decreased appetite and increased creatinine. He will receive BID blood glucose checks and SS insulin. (5) Normocytic anemia Status: Acute Assessment & Plan: He has some anemia present prior to surgery. His hemoglobin is 8.8 this morning. We will transfuse 2 units packed red blood cells today. We will recheck his CBC tomorrow morning. (6) COPD (chronic obstructive pulmonary disease) Status: Chronic Assessment & Plan: He is on chronic treatment with oxygen 3L at all times. (7) Elevated serum creatinine Status: Acute Assessment & Plan: He had serum creatinine of 1.5 prior to surgery. Creatinine is 1.5 today. Recheck BMP tomorrow. Exam Sepsis Risk: Severe Sepsis Risk THUY QUIROZ AUTOMOTIVE COLLISION ESTIMATOR Dec 09, 2017 10:02
[2017-12-09] MEDS: chlorproMAZINE 25 MG TAB PO PRN ×2 (13:03→20:27)
[2017-12-09] MEDS ORDERED: NS(*) 0.9% 500 ML BAG 500 ML IV PRN (15:20)
[2017-12-09] MEDS: LENALIDOMIDE PO SCH (17:54)
[2017-12-09] MEDS: APAP/HYDROCODONE 325/5 TAB PO PRN (19:45)
[2017-12-09] MEDS: LOVASTATIN 20 MG TAB PO SCH (20:27)
[2017-12-10 03:34] VITALS: BP 96/77
[2017-12-10] MEDS ORDERED: DILTIAZEM(*) 5 MG/ML 5ML IVP 125 MG in NS(*) 0.9% 100 ML BAG 100 ML IV SCH (05:30)
[2017-12-10] MEDS: ACETAMINOPHEN 500 MG TAB PO PRN (05:37)
[2017-12-10 06:06] LABS: PLATELET COUNT, AUTOMATED 73 K/uL (150-450)
[2017-12-10 07:04] VITALS: BP 95/59
[2017-12-10] MEDS: KCL (*) 20 MEQ/100 ML PREMIX 100 ML IV SCH ×2 (07:12→09:55)
[2017-12-10] MEDS ORDERED: POTASSIUM CHL 10 MEQ TABCR PO ONE (08:00)
[2017-12-10] MEDS ORDERED: BETHANECHOL CHL 25 MG TAB PO ONE (08:00)
--- NOTE | 2017-12-10 08:00 | Hospitalist Progress Note ---
Subjective Progress Notes Subjective He reports doing well. He is hoping to discharge today. Physical Exam Vital Signs Date Time Temp Pulse Resp B/P (MAP) Pulse Ox O2 Delivery O2 Flow Rate FiO2 12/10/17 07:04 97.8 68 16 95/59 (71) 97 Nasal Cannula 2.5 General Appearance: Alert, Awake Cardiovascular: Other (Fairly regular with occasional ectopy) Respiratory: Clear to Auscultation Result Diagram: 12/10/17 0549 12/10/17 0549 Assessment and Plan Problems: (1) S/P lumbar fusion Status: Acute Assessment & Plan: Followed by Dr. Carcamo. (2) Multifocal atrial tachycardia Status: Acute Assessment & Plan: On 12/08/17, he was found to have heart rates from 150-170 variable. He denied chest pain or shortness of breath. EKG performed show multifocal atrial tachycardia. He was treated with Diltiazem. The patient was then found to have a bladder outlet obstruction. He was transfused for his anemia and we have been able to stop the diltiazem. His elevation of his heart rate may have been related to the anemia and possibly to the MASON. (3) Multiple myeloma Status: Acute Assessment & Plan: He is on chronic treatment with Zometa infusions monthly and Revlimid daily. We have restarted his oral chemotherapy. (4) Pre-diabetes Status: Acute Assessment & Plan: He is on treatment with Metformin. His Metformin has been held, secondary to decreased appetite and increased creatinine. Will continue blood glucose checks and use SS insulin. (5) Normocytic anemia Status: Acute Assessment & Plan: He has some anemia present prior to surgery. His hemoglobin is 8.8 yesterday. He was transfused 2 units packed red blood cells yesterday. Hgb/Hct significantly improved. (6) COPD (chronic obstructive pulmonary disease) Status: Chronic Assessment & Plan: He is on chronic treatment with oxygen 3L at all times. (7) Elevated serum creatinine Status: Acute Assessment & Plan: He had serum creatinine of 1.5 prior to surgery. Creatinine is 1.4 today. (8) Hypokalemia Status: Acute Assessment & Plan: Will replace with IV supplements. Watch lab. Exam Sepsis Risk: Severe Sepsis Risk ADA GUPTA MD Dec 10, 2017 08:00
[2017-12-10] MEDS: DOCUSATE SODIUM 100 MG CAP PO SCH ×2 (08:15→20:30)
[2017-12-10] MEDS: TAMSULOSIN HCL 0.4 MG CAP PO SCH (08:15)
[2017-12-10] MEDS: NS(*) 0.9% 1000 ML BAG 1,000 ML IV PRN ×2 (08:38→19:20)
[2017-12-10] MEDS: BETHANECHOL CHL 25 MG TAB PO SCH ×3 (14:21→20:30)
[2017-12-10 15:09] VITALS: BP 121/71
[2017-12-10] MEDS ORDERED: CIPROFLOXACIN 500 MG TAB PO ONE (16:00)
[2017-12-10] MEDS: POTASSIUM CHL 10 MEQ TABCR PO SCH (17:30)
[2017-12-10] MEDS: LENALIDOMIDE PO SCH (17:30)
[2017-12-10 18:59] VITALS: BP 130/78
[2017-12-10] MEDS: LOVASTATIN 20 MG TAB PO SCH (20:30)
[2017-12-10] MEDS ORDERED: CIPROFLOXACIN 500 MG TAB PO SCH (22:00)
[2017-12-10 23:25] VITALS: BP 123/73
[2017-12-11 03:58] VITALS: BP 109/76
[2017-12-11 06:45] LABS: PLATELET COUNT, AUTOMATED 81 K/uL (150-450)
[2017-12-11 07:35] VITALS: BP 118/68
[2017-12-11] MEDS: APAP/HYDROCODONE 325/5 TAB PO PRN (08:30)
[2017-12-11] MEDS: BETHANECHOL CHL 25 MG TAB PO SCH ×2 (08:30→12:26)
[2017-12-11] MEDS: TAMSULOSIN HCL 0.4 MG CAP PO SCH (08:30)
[2017-12-11] MEDS: DOCUSATE SODIUM 100 MG CAP PO SCH (08:30)
[2017-12-11] MEDS: POTASSIUM CHL 10 MEQ TABCR PO SCH (08:30)
[2017-12-11] MEDS ORDERED: DOCU240C84 PO (11:21)
[2017-12-11] MEDS ORDERED: LOR5/325 PO (11:21)
[2017-12-11] MEDS ORDERED: DIA5 PO (11:22)
[2017-12-11] MEDS ORDERED: TAMS0.4C25 PO (11:23)
[2017-12-11] MEDS ORDERED: BETH25TA43 PO (11:23)
--- NOTE | 2017-12-11 11:38 | Hospitalist Progress Note ---
Subjective Progress Notes Subjective No cp/sob. He still gets a fast heart rate with minimal activity. Physical Exam Vital Signs Date Time Temp Pulse Resp B/P (MAP) Pulse Ox O2 Delivery O2 Flow Rate FiO2 12/11/17 07:56 96 Nasal Cannula 3.0 12/11/17 07:39 87 12/11/17 07:35 98.0 16 118/68 (85) Intake and Output 12/12/17 07:00 Intake Total 0 ml Balance 0 ml Intake Oral 0 ml General Appearance: Alert, Awake, No Acute Distress GI: Soft and Non-Tender Result Diagram: 12/11/17 0548 12/11/17 0548 Assessment and Plan Problems: (1) S/P lumbar fusion Status: Acute Assessment & Plan: Followed by Dr. Carcamo. (2) Multifocal atrial tachycardia Status: Acute Assessment & Plan: On 12/08/17, he was found to have heart rates from 150-170 variable. He denied chest pain or shortness of breath. EKG performed show multifocal atrial tachycardia. He was treated with Diltiazem. The patient was then found to have a bladder outlet obstruction. He was transfused for his anemia and we have been able to stop the diltiazem. His elevation of his heart rate were exacerbated by the anemia and bladder outlet obstruction. He still gets heart rates in the 120-130's with activity. He had an echocardiogram that showed an EF of 60%, moderate pulmonary hypertension and no wall motion abnormalities. We recommend he get a stress test with imaging when he has recovered from the surgery to complete the work up. (3) Elevated LFTs Status: Acute Assessment & Plan: Etiology unclear. Possibly related to surgery or medications. He has a benign abdominal exam and he is asymptomatic. Total bilirubin is trending down. AST/ALT/Alk Phos are trending up. He only received 3 doses of APAP 500mg. He will get a recheck of LFT's in 5 days. (4) Bladder outlet obstruction Status: Acute Assessment & Plan: Likely, a long standing problem. He was seen by Dr. Coelho and had a 1 liter PVR. The catheter is now out. He is on Flomax and Bethanechol. He is to follow up with Dr. Coelho (5) Normocytic anemia Status: Acute Assessment & Plan: He has some anemia present prior to surgery, but was exacerbated by blood loss and multiple myeloma. His hemoglobin was as low as 8.8. He was transfused 2 units packed red blood cells on 12/09. Hgb/Hct have significantly improved and are stable. Recheck Hgb in about 5 days. (6) Hypokalemia Status: Acute Assessment & Plan: Replaced with IV supplements. CMP in 5 days. (7) Elevated serum creatinine Status: Chronic Assessment & Plan: He had serum creatinine of 1.5 prior to surgery. Creatinine is 1.2 today. Certainly, the MASON contributed to the creatinine being higher pre -op. CMP in 5 days. (8) Multiple myeloma Status: Acute Assessment & Plan: He is on chronic treatment with Zometa infusions monthly and Revlimid daily. We have restarted his oral chemotherapy. (9) COPD (chronic obstructive pulmonary disease) Status: Chronic Assessment & Plan: He is on chronic treatment with oxygen 3L at all times. (10) Pre-diabetes Status: Acute Assessment & Plan: He is on treatment with Metformin. Copies to: GRISEL REID MD; KIMMIE CARCAMO MD Exam Sepsis Risk: No Definite Risk DAVE MAK MD Dec 11, 2017 11:38
[2017-12-11] MEDS: oxyCODONE HCL 5 MG CAP PO PRN (11:50)
== END 2017-12-11 15:00 | disposition home or self-care (01) | DRG 460 ==
LOC: OR 00:54 → MED 11:40
PROVIDERS: ADMIT Orthopaedic Surgery; ATTEND Orthopaedic Surgery
PROC: 01NB0ZZ Release Lumbar Nerve, Open Approach (ICD-10-PCS; 2017-12-06)
PROC: 0SG0071 Fusion of Lumbar Vertebral Joint with Autologous Tissue Substitute, Posterior Approach, Posterior Column, Open Approach (ICD-10-PCS; principal; 2017-12-06 07:06)
PROC: 0T9B7ZZ Drainage of Bladder, Via Natural or Artificial Opening (ICD-10-PCS; 2017-12-08)
PROC: 30233N1 Transfusion of Nonautologous Red Blood Cells into Peripheral Vein, Percutaneous Approach (ICD-10-PCS; 2017-12-09)
DX: M48.062 Spinal stenosis, lumbar region with neurogenic claudication (principal); C90.00 Multiple myeloma not having achieved remission; I97.89 Other postprocedural complications and disorders of the circulatory system, not elsewhere classified; I47.1 Supraventricular tachycardia; M51.16 Intervertebral disc disorders with radiculopathy, lumbar region; M43.16 Spondylolisthesis, lumbar region; E11.9 Type 2 diabetes mellitus without complications; J44.9 Chronic obstructive pulmonary disease, unspecified; E78.5 Hyperlipidemia, unspecified; E78.00 Pure hypercholesterolemia, unspecified; J02.9 Acute pharyngitis, unspecified; N32.0 Bladder-neck obstruction; I27.20 Pulmonary hypertension, unspecified; R79.89 Other specified abnormal findings of blood chemistry; D50.0 Iron deficiency anemia secondary to blood loss (chronic); E87.6 Hypokalemia; Y83.8 Other surgical procedures as the cause of abnormal reaction of the patient, or of later complication, without mention of misadventure at the time of the procedure; Y79.3 Surgical instruments, materials and orthopedic devices (including sutures) associated with adverse incidents; Y92.230 Patient room in hospital as the place of occurrence of the external cause; Z92.21 Personal history of antineoplastic chemotherapy; Z87.891 Personal history of nicotine dependence; Z79.84 Long term (current) use of oral hypoglycemic drugs
CPT/HCPCS: 36415; 36416; 72020; 81001; 82040; 82247; 82310; 82374; 82435; 82565; 82947; 82948; 84075; 84132; 84155; 84295; 84443; 84450; 84460; 84520; 85025; 86850; 86900; 86901; 86920; 87088; 93005; 93306; 97161; C1713; J0690; J1100; J1170; J2001; J2370; J2405; J2704; J3010; J3480; J3490; J7030; J7040; J7050; J7060; P9016; Q0161

== ENCOUNTER 2017-12-13 07:28 | Outpatient (REF) | payer MEDICARE, OTHER ==
[2016-07-05 13:51] VITALS: BMI 22.5
[~2017-12-13 07:28] MED LIST changes: +BETH25TA43 PO; +DIA5 PO; +DOCU240C84 PO; +LOR5/325 PO; -METF-411 PO; +METF-450 PO; +TAMS0.4C25 PO
--- NOTE | 2017-12-14 11:54 | Transitional Care Management ---
Assessment Visit Type: Telephone Visit (12/14 Josiah- ) Cardiac: WNL Except Cardiac Comment: 12/14 denies any heart rate changes. Respiratory: WNL Except Respiratory Comment: 12/14 uses O2 3L 24/7 dc/o of some SOB w activity but "that is usual" GI: Nutrition: WNL Except GI Comment: 12/14 diabetic "My fixes the meals" Constipation?: No : WNL Except Comment: 12/14 "went home with ramirez cath- Dr Coelho changed to a leg bag today" Musculoskeletal, Exercise: WNL Except Musculoskeletal, Excercise Com: 12/14 some weakness but hanging there Mobility/Falls: WNL Feeling of Well Being: WNL Socialization: WNL Scheduled Follow-Up with [facility]: Yes (12/14 to see Margarette today and Dr Nash and [facility] on 12/16) Needed or Pending Tests: Yes Following Discharge Instructio: Yes TCM Discharge Criteria Medication Knowledge: 12/14 wentover meds- had no questions and states she is the one thatsitsthem up and gives Disease Management/Concern/Wha: 12/14 went over Red and yellow flags of AFib and diabetes. Transitional Care Comment: 12/09 MASON resolved yesterday but, multifocal atrial tachy persists. Reports is tired and getting 2 unit blood today. Review new dx, new meds, f/u with MD and early s/s to report. Talked about changing MD's and given list of MD's in [id number] unable to contact 12/14 visited w -they are here in [place] visiting w Dr Coelho-he changed the ramirez to a leg bag and ordered [facility] to FU with them in [place]. is the primary client care manager and states she is not doing to well herself. Does request that we call her phone # as she is the one that deals with care etc. 12/10 He states he looked at info given to him yesterday and has no questions. Stated he might go home with HH or possibly a SNF for further strengthening. Has not decided on a different MD yet.Is interested in getting an [employer] O2 setup. Does have a glucometer at home but only uses it occssionally. 12/11 Not sure when going home Wednesday or Wednesday "it depends on the PT" also witing for son to put recliner on a riser platform as it is to low. 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 Sees Dr Chung but might change Drs. goes to [facility] once a month for therapy. BX about 2-3/10 Sitting up in the chair. LEEANN JEFFERSON Dec 14, 2017 11:54
[2017-12-16] MEDS ORDERED: CIPR-214 PO (08:41)
[2017-12-16] MEDS ORDERED: MOM PO (08:44)
[2017-12-18] MEDS ORDERED: DICL100G39 TOP (08:17)
--- NOTE | 2017-12-19 12:46 | Transitional Care Management ---
Assessment Visit Type: Telephone Visit Spoke with: spouse, Marisa Cardiac: WNL Except Cardiac Comment: 12/14 denies any heart rate changes. 12/19 no racing or CP or edema Respiratory: WNL Except Respiratory Comment: 12/14 uses O2 3L 04/01 dc/o of some SOB w activity but "that is usual" 12/19 review s/s COPD exacerbation and denies. will monitor. has runny nose as s.e. of cancer med since startitng it. wearing O2. GI: Nutrition: WNL Except GI Comment: 12/14 diabetic "My fixes the meals" 12/19 eating good. using MOM while on pain meds when not having a bm and is staying regular. BS 88 this am. MD spain metformin as his prednisone was stopped and his wt came back down. will cont. to monitor BS for a while then A1C. Constipation?: No : WNL Except Comment: 12/14 "went home with ramirez cath- Dr Coelho changed to a leg bag today" 12/19 has f/u with Meliton. Ramirez out tomorrow then to [facility] the next day. Will resume flomax and urecholine tomorrow also. Using leg bag exclusively and gets up at night to drain; doesn't want to expose tube to bacteria. drinking 2 liters a day Musculoskeletal, Exercise: WNL Except Musculoskeletal, Excercise Com: 12/14 some weakness but hanging there 12/19 using walker moving more at home. restricted by neck pain Mobility/Falls: WNL Integumentary: WNL Except Integumentary Comment: 12/19 incision healing well but has "puffy at the top" and will havenurse and OT look at it tomorrow. Sees Carlos Alberto on 12/21 Feeling of Well Being: WNL Socialization: WNL Pain/Management: WNL Except Pain/Management Comment: 12/19 still using vicodan and valium for neck pain, not the surgical back Scheduled Follow-Up with Provi: Yes (12/19 Luna on 12/21. Allais in 2 wk after labs. Cancer center 2pm on 12/20) Community Resources/HHC: 12/19 E[facility]HC PT, OT, RN Needed or Pending Tests: Yes (12/19 has labs in 2 wk prior to MD visit) Following Discharge Instructio: Yes TCM Discharge Criteria Medication Knowledge: 12/14 wentover meds- had no questions and states she is the one thatsitsthem up and gives 12/19 reports starting cipro per Floshayla order and will also resume flomax and urecholine tomorrow when ramirez comes out Disease Management/Concern/Wha: 12/14 went over Red and yellow flags of AFib and diabetes. Red/Yellow Flags: 12/19 a fib, COPD Transitional Care Comment: 12/09 MASON resolved yesterday but, multifocal atrial tachy persists. Reports is tired and getting 2 unit blood today. Review new dx, new meds, f/u with MD and early s/s to report. Talked about changing MD's and given list of MD's in [id number] unable to contact 12/14 visited w -they are here in [place] visiting w Dr Coelho-he changed the ramirez to a leg bag and ordered [facility] to FU with them in [place]. 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 Does request that we call her phone # as she is the one that deals with care etc. 12/10 He states he looked at info given to him yesterday and has no questions. Stated he might go home with HH or possibly a SNF for further strengthening. Has not decided on a different MD yet.Is interested in getting an [employer] O2 setup. Does have a glucometer at home but only uses it occssionally. 12/11 Not sure when going home Wednesday or Wednesday "it depends on the PT" also witing for son to put recliner on a riser platform as it is to low. 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 Sees Dr Chung but might change Drs. goes to [facility] once a month for therapy. BX about 2-3/10 Sitting up in the chair. 12/19 reports HH has been helpful and has had f/u as ordered with PCP, uro and surgeon. Monitoring for s/s infection. Is able to sit in chair and help him with shoes/socks as he is not bending,lifting,twisting. Other than new neck pain, doing well GABRIELA NUÑEZ Dec 19, 2017 12:46
[2017-12-28] MEDS ORDERED: CHOL10005 PO (10:05)
[2017-12-28] MEDS ORDERED: CALC600T63 PO (10:05)
[2017-12-28] MEDS ORDERED: FLUC150T40 PO (11:16)
[2017-12-28] MEDS ORDERED: DOCU-416 PO (11:17)
[2017-12-28] MEDS ORDERED: FAMO20TA28 PO (11:17)
[2017-12-28] MEDS ORDERED: [UNRECOGNIZED DRUG - CODE] PO (11:19)
[2017-12-28] MEDS ORDERED: CIPR-214 PO (11:19)
[2018-03-10] MEDS ORDERED: FURO40TA35 PO (11:25)
[2018-04-12] MEDS ORDERED: ZOLE4INF IV (14:21)
== END 2018-05-16 16:50 | disposition home or self-care (01) ==
LOC: TCM 07:28
PROVIDERS: ATTEND Nurse Practitioner
DX: E11.9 Type 2 diabetes mellitus without complications (principal); I48.91 Unspecified atrial fibrillation

== ENCOUNTER → 2017-12-14 | Outpatient (CLI) | payer MEDICARE, OTHER ==
[2016-07-05 13:51] VITALS: BMI 22.5
[~2017-12-14] MED LIST changes: +CIPR-214 PO; +METF-411 PO; -METF-450 PO; +MOM PO
[2017-12-14 13:07] LABS: PLATELET COUNT, AUTOMATED 140 K/uL (150-450)
== END ==
LOC: LAB 12:49
PROVIDERS: ATTEND Internal Medicine
DX: D64.9 Anemia, unspecified (principal); R94.5 Abnormal results of liver function studies
CPT/HCPCS: 36415; 82040; 82247; 82310; 82374; 82435; 82565; 82947; 84075; 84132; 84155; 84295; 84450; 84460; 84520; 85025

== ENCOUNTER → 2017-12-21 | Outpatient (REF) | payer MEDICARE, OTHER ==
[2016-07-05 13:51] VITALS: BMI 22.5
[~2017-12-21] MED LIST changes: +DICL100G39 TOP
== END ==
LOC: ZZSENDIN 11:52
DX: N30.21 Other chronic cystitis with hematuria (principal)
CPT/HCPCS: 81001; 87088

== ENCOUNTER 2017-12-25 17:00 | Inpatient (IN) | payer MEDICARE, OTHER ==
[~2017-12-25] VITALS: Ht 182.9 cm; Wt 83.2 kg
[2017-12-25] MEDS ORDERED: NS(*) 0.9% 1000 ML BAG 1,000 ML IV ONE (17:20)
[2017-12-25] MEDS ORDERED: LIDOCAINE 2% 200MG/10ML UROJET TP ONE (17:20)
[2017-12-25 17:49] LABS: PLATELET COUNT, AUTOMATED 196 K/uL (150-450)
[2017-12-25] MEDS ORDERED: predniSONE 20 MG TAB PO ONE (17:50)
[2017-12-25] MEDS ORDERED: valACYclovir HCL 500 MG TAB PO ONE (17:50)
--- NOTE | 2017-12-25 18:04 | ER Report ---
History and Physical Time Seen By MD: 17:33 Hx. of Stated Complaint: URINARY RETENTION AND CONSTIPATION. BACK SURGERY ON 12/06 AND DIFFICULTY WITH BOWELS SINCE. REPORTS THAT DR SIDHU WANTS HIM TO HAVE A URINARY CATHETER HPI/ROS CHIEF COMPLAINT: Urinary retention HISTORY OF PRESENT ILLNESS: 77-year-old male patient presents to emergency room with complaint of urinary retention. Patient states that he had back surgery approximately 2 weeks ago. He had a catheter was in place until Wednesday of this past week. He states that was removed by Dr. Sidhu. He states that he had been doing fine for the last several days until today. He states that today he was unable to urinate. He states he was able to urinate a very small amount daily that was it. He states he is incredibly uncomfortable. He states pain is mostly in the low back as well as his bladder. Patient states he's also had problems with constipation. His last bowel movement was a week ago. He denies having any fevers, chills, nausea or vomiting. Patient has been taking hydrocodone for pain. REVIEW OF SYSTEMS: Respiratory: No cough, no dyspnea. Cardiovascular: No chest pain, no palpitations. Gastrointestinal: As noted above Musculoskeletal: As noted above Allergies: Coded Allergies: pineapple (Verified Allergy, Intermediate, ITCHING , 12/01/17) Home Meds Active Scripts Diclofenac Sodium 1% Gel (VOLTAREN 1% GEL) 100 Gm Gel..gram., 2 GM TOP QID, #2 TUBE 1 Refill Prov:GRISEL REID MD 12/18/17 Lovastatin (LOVASTATIN) 20 Mg Tablet, 1 TAB PO QDAY, #90 TAB 4 Refills Prov:GRISEL REID MD 08/13/17 Pyridoxine Hcl (VITAMIN B-6) 100 Mg Tablet, 1 TAB PO BID, #60 TAB Prov:GRISEL REID MD 08/07/17 Metformin Hcl (METFORMIN HCL) 500 Mg Tablet, 1 TAB PO QDAY, #90 TAB 3 Refills Prov:GRISEL REID MD 05/05/17 Triamcinolone Acetonide 0.1% Cr 15 Gm Tube (TRIAMCINOLONE ACETONIDE 0.1% CREAM) 15 Gm Cream..g., 1 YOLY TP BID Y for Psoriasis, #1 TUBE 5 Refills Prov:GRISEL REID MD 03/18/17 Reported Medications Magnesium Hydroxide (MILK OF MAGNESIA) 400 Mg/5 Ml Oral.susp, 5 ML PO prn pain medication, BOTTLE 12/16/17 Ciprofloxacin Hcl (CIPROFLOXACIN HCL) 500 Mg Tablet, 1 TAB PO BID, #6 TAB 0 Refills 12/16/17 Bethanechol Chloride (URECHOLINE) 25 Mg Tablet, 1 TAB PO QID, #30 12/11/17 Tamsulosin Hcl (FLOMAX) 0.4 Mg Cap.er.24h, 1 CAP PO BID, #30 CAP 12/11/17 Diazepam (VALIUM) 5 Mg Tablet, 5 MG PO Q8H Y for MUSCLE SPASMS, #25 TAB 0 Refills 12/11/17 Hydrocodone Bit/Acetaminophen (HYDROCODON-ACETAMINOPHEN 5-325) 1 Each Tablet, 1- 2 TAB PO Q6H Y for PAIN, #49 TAB 0 Refills 12/11/17 Zoledronic Acid (ZOMETA) 4 Mg/5 Ml Vial, MG IV monthly, VIAL 11/25/17 Lenalidomide (REVLIMID) 10 Mg Capsule, 1 CAP PO QDAY 06/17/17 Oxygen (OXYGEN) Inha, 3 L INH cont 10/22/16 Multivitamin (MULTI VITAMIN DAILY) 1 Each Tablet, 1 TAB PO DAILY 07/09/16 Aspirin (ASPIR 81) 81 Mg Tablet.dr, 1 TAB PO QDAY 07/09/16 Past Medical/Surgical History Patient has a past medical history of hyperlipidemia, 3 L of oxygen at all times , emphysema, COPD, diabetes, eczema, alcohol use, multiple myeloma. Patient has surgical history of cataract surgery, left finger surgery, left femur surgery, foot surgery, double hernia repair, patient is 2 weeks status post laminectomy. Patient has a family medical history of CAD, stroke, diabetes. Reviewed Nurses Notes: Yes Hx Smoking: Yes (1/2 - 1 PPD FOR 60 YRS, QUIT 2016) Smoking Status: Former Smoker Exposure to Second Hand Smoke?: Yes Hx Substance Use Disorder: No Hx Alcohol Use: Yes Constitutional Vital Sign - Last 24 Hours 12/25/17 17:07 Temp 98.7 Pulse 86 Resp 18 B/P (MAP) 134/88 Pulse Ox 95 O2 Delivery Nasal Cannula Intake and Output 12/25/17 12/25/17 12/26/17 15:00 23:00 07:00 Output Total 1000 ml Balance -1000 ml Physical Exam General Appearance: The patient is alert, has no immediate need for airway protection and no current signs of toxicity. Respiratory: Chest is non tender, lungs are clear to auscultation. Cardiac: regular rate and rhythm Gastrointestinal: Abdomen is soft and tender, no masses, bowel sounds normal. Patient does have distention of the bladder. Musculoskeletal: Neck: Neck is supple and non tender. Extremities have full range of motion and are non tender. Skin: No rashes or lesions. DIFFERENTIAL DIAGNOSIS: After history and physical exam differential diagnosis was considered for urinary retention, electrolyte abnormality. Medical Decision Making Data Points Result Diagram: 12/25/17 1742 12/25/17 1742 Laboratory Hematology Test 02/10/17 00:00 12/25/17 17:32 12/25/17 17:42 Neutrophils # 1.5 K/CUMM (2.0-8.5) Hematocrit 47.3 % (40-53) Hemoglobin 15.5 G/DL (13-18) Platelet Count 35.0 K/CUMM (130-420) White Blood Count 5.1 10^3/MM3 (3.5-10.5) Urine Color Yellow Urine Clarity Clear Urine pH 6.0 pH (4.8-9.5) Urine Specific [place] 1.006 Urine Protein 30 mg/dL (NEGATIVE) Urine Glucose (UA) 150 mg/dL (NEGATIVE) Urine Ketones Negative mg/dL (NEGATIVE) Urine Blood Small (NEGATIVE) Urine Nitrite Negative (NEGATIVE) Urine Bilirubin Negative (NEGATIVE) Urine Urobilinogen Negative mg/dL (0.2-1.9) Urine Leukocyte Esterase Negative (NEGATIVE) Urine RBC <1 /HPF (0-2/HPF) Urine WBC 1 /HPF (0-5/HPF) Urine Squamous Epithelial Cells None /LPF (NONE-FEW) Urine Bacteria Negative /HPF (NONE-FEW) Urine Mucus None /HPF (NONE-FEW) Red Blood Count 3.32 M/uL (4.00-5.60) Mean Corpuscular Volume 90.5 fL (80.0-96.0) Mean Corpuscular Hemoglobin 31.7 pg (26.0-33.0) Mean Corpuscular Hemoglobin Concent 35.0 g/dL (32.0-36.0) Red Cell Distribution Width 15.2 % (11.5-14.5) Mean Platelet Volume 8.0 fL (7.2-11.1) Neutrophils (%) (Auto) 64.5 % (39.4-72.5) Lymphocytes (%) (Auto) 19.3 % (17.6-49.6) Monocytes (%) (Auto) 10.8 % (4.1-12.4) Eosinophils (%) (Auto) 4.3 % (0.4-6.7) Basophils (%) (Auto) 1.1 % (0.3-1.4) Nucleated RBC Relative Count (auto) 0.0 /100WBC Neutrophils # (Auto) 2.4 K/uL (2.0-7.4) Lymphocytes # (Auto) 0.7 K/uL (1.3-3.6) Monocytes # (Auto) 0.4 K/uL (0.3-1.0) Eosinophils # (Auto) 0.2 K/uL (0.0-0.5) Basophils # (Auto) 0.0 K/uL (0.0-0.1) Nucleated RBC Absolute Count (auto) 0.00 K/uL Sodium Level 125 mmol/L (137-145) Potassium Level 2.8 mmol/L (3.5-5.0) Chloride Level 91 mmol/L (98-107) Carbon Dioxide Level 26 mmol/L (22-30) Blood Urea Nitrogen 13 mg/dl (9-21) Creatinine 1.60 mg/dl (0.66-1.25) Glomerular Filtration Rate Calc 42.3 Random Glucose 102 mg/dl (75-110) Calcium Level 8.1 mg/dl (8.4-10.2) Total Bilirubin 1.1 mg/dl (0.2-1.3) Aspartate Amino Transf (AST/SGOT) 35 U/L (0-35) Alanine Aminotransferase (ALT/SGPT) 44 U/L (0-56) Alkaline Phosphatase 253 U/L (0-126) Total Protein 6.2 g/dl (6.3-8.2) Albumin 3.3 g/dl (3.5-5.0) Chemistry Test 02/10/17 00:00 12/25/17 17:32 12/25/17 17:42 Neutrophils # 1.5 K/CUMM (2.0-8.5) Hematocrit 47.3 % (40-53) 30.1 % (42.0-52.0) Hemoglobin 15.5 G/DL (13-18) 10.5 g/dL (14.0-18.0) Platelet Count 35.0 K/CUMM (130-420) 196 K/uL (150-450) White Blood Count 5.1 10^3/MM3 (3.5-10.5) 3.7 k/uL (4.5-11.0) Urine Color Yellow Urine Clarity Clear Urine pH 6.0 pH (4.8-9.5) Urine Specific [place] 1.006 Urine Protein 30 mg/dL (NEGATIVE) Urine Glucose (UA) 150 mg/dL (NEGATIVE) Urine Ketones Negative mg/dL (NEGATIVE) Urine Blood Small (NEGATIVE) Urine Nitrite Negative (NEGATIVE) Urine Bilirubin Negative (NEGATIVE) Urine Urobilinogen Negative mg/dL (0.2-1.9) Urine Leukocyte Esterase Negative (NEGATIVE) Urine RBC <1 /HPF (0-2/HPF) Urine WBC 1 /HPF (0-5/HPF) Urine Squamous Epithelial Cells None /LPF (NONE-FEW) Urine Bacteria Negative /HPF (NONE-FEW) Urine Mucus None /HPF (NONE-FEW) Red Blood Count 3.32 M/uL (4.00-5.60) Mean Corpuscular Volume 90.5 fL (80.0-96.0) Mean Corpuscular Hemoglobin 31.7 pg (26.0-33.0) Mean Corpuscular Hemoglobin Concent 35.0 g/dL (32.0-36.0) Red Cell Distribution Width 15.2 % (11.5-14.5) Mean Platelet Volume 8.0 fL (7.2-11.1) Neutrophils (%) (Auto) 64.5 % (39.4-72.5) Lymphocytes (%) (Auto) 19.3 % (17.6-49.6) Monocytes (%) (Auto) 10.8 % (4.1-12.4) Eosinophils (%) (Auto) 4.3 % (0.4-6.7) Basophils (%) (Auto) 1.1 % (0.3-1.4) Nucleated RBC Relative Count (auto) 0.0 /100WBC Neutrophils # (Auto) 2.4 K/uL (2.0-7.4) Lymphocytes # (Auto) 0.7 K/uL (1.3-3.6) Monocytes # (Auto) 0.4 K/uL (0.3-1.0) Eosinophils # (Auto) 0.2 K/uL (0.0-0.5) Basophils # (Auto) 0.0 K/uL (0.0-0.1) Nucleated RBC Absolute Count (auto) 0.00 K/uL Glomerular Filtration Rate Calc 42.3 Calcium Level 8.1 mg/dl (8.4-10.2) Total Bilirubin 1.1 mg/dl (0.2-1.3) Aspartate Amino Transf (AST/SGOT) 35 U/L (0-35) Alanine Aminotransferase (ALT/SGPT) 44 U/L (0-56) Alkaline Phosphatase 253 U/L (0-126) Total Protein 6.2 g/dl (6.3-8.2) Albumin 3.3 g/dl (3.5-5.0) Urinalysis Test 12/25/17 17:32 Urine Color Yellow Urine Clarity Clear Urine pH 6.0 pH (4.8-9.5) Urine Specific [place] 1.006 Urine Protein 30 mg/dL (NEGATIVE) Urine Glucose (UA) 150 mg/dL (NEGATIVE) Urine Ketones Negative mg/dL (NEGATIVE) Urine Blood Small (NEGATIVE) Urine Nitrite Negative (NEGATIVE) Urine Bilirubin Negative (NEGATIVE) Urine Urobilinogen Negative mg/dL (0.2-1.9) Urine Leukocyte Esterase Negative (NEGATIVE) Urine RBC <1 /HPF (0-2/HPF) Urine WBC 1 /HPF (0-5/HPF) Urine Squamous Epithelial Cells None /LPF (NONE-FEW) Urine Bacteria Negative /HPF (NONE-FEW) Urine Mucus None /HPF (NONE-FEW) EKG/Imaging Imaging Examination: KUB SINGLE VIEW ABDOMEN Comparison: None. History: abdominal pain Findings: Nondistended gas-filled loops of small bowel and colon. Small amount of stool in the colon. No definite evidence of mass effect or organomegaly. No soft tissue calcifications. L4-L5 posterior fusion. No acute osseous normality. IMPRESSION: Nonspecific but nonobstructed supine bowel gas pattern. Report Dictated By: Gilberto Roy MD at 12/25/2017 6:36 PM Report E-Signed By: Gilberto Roy MD at 12/25/2017 6:41 PM ED Course/Re-evaluation ED Course Patient was admitted and examined, history and physical were obtained. Differential diagnoses were considered. On examination patient has distention around the bladder, a bladder scan was done by the nurse which showed 1 L of fluid in his bladder. A CBC, CMP, KUB, IV was started patient received a liter of normal saline. I'm getting the labs back patient had a low potassium of 2.8 and a low sodium of 125. We discussed the findings with the patient and his . We did give him the options of going home. However they feel that since they live so far out they would feel comfortable with him staying here in case there is any problems. I discussed the case with Dr. Natacha Lugo, hospitalist , who agreed to accept the patient for admission with diagnosis of hyponatremia. I discussed this with the patient who verbalized understanding and agreement. Discussing admission with the patient patient was having lots of pain with his IV. It appeared that the saline was not running. I discussed this with the nurse went and reevaluated. On reevaluation patient was still having significant amounts of pain and did not note any draining of normal saline. I spoke with the nurse who went in and reevaluated again. Patient and are both in agreement with admission to hospital. Decision to Disposition Date: Dec 25, 2017 Decision to Disposition Time: 18:47 Depart Departure Latest Vital Signs Vital Signs Date Time Temp Pulse Resp B/P (MAP) Pulse Ox O2 Delivery O2 Flow Rate FiO2 12/25/17 17:07 98.7 86 18 134/88 95 Nasal Cannula Impression: Primary Impression: Hyponatremia Additional Impression: Hypokalemia Condition: Condition Unchanged Disposition: Admitted from ER Referrals: GRISEL REID MD (PCP) Problem Qualifiers PATYS DORANTES Dec 25, 2017 18:04
[2017-12-25] MEDS ORDERED: KCL (*) 20 MEQ/100 ML PREMIX 100 ML IV ONE (18:05)
--- NOTE | 2017-12-25 18:43 | RADIOLOGY IMAGING REPORT ---
FACILITY: [facility] PATIENT NAME: Williams Munoz : 1940 MR: [id number] V: [id number] EXAM DATE: ORDERING PHYSICIAN: PATSY DORANTES TECHNOLOGIST: Location: [facility] Patient: Williams Munoz : 1940 Visit/Account:[id number] Date of Sevice: 12/25/2017 Examination: KUB SINGLE VIEW ABDOMEN Comparison: None. History: abdominal pain Findings: Nondistended gas-filled loops of small bowel and colon. Small amount of stool in the colon. No definite evidence of mass effect or organomegaly. No soft tissue calcifications. L4-L5 posterior fusion. No acute osseous normality. IMPRESSION: Nonspecific but nonobstructed supine bowel gas pattern. Report Dictated By: Gilberto Roy MD at 12/25/2017 6:36 PM Report E-Signed By: Gilberto Roy MD at 12/25/2017 6:41 PM WSN:[id number]
[2017-12-25 20:00] VITALS: BP 102/68
[2017-12-25] MEDS ORDERED: NS(*) 0.9% 1000 ML BAG 1,000 ML IV PRN (21:08)
[2017-12-25] MEDS ORDERED: MAGNESIUM HYDROXIDE* 30ML UDCP PO PRN (21:10)
[2017-12-25] MEDS ORDERED: BISACODYL 10 MG SUPP PR PRN (21:10)
[2017-12-25] MEDS ORDERED: INFLUENZA VIRUS VAC 0.5 ML SYR IM ONLY ONE (21:10)
[2017-12-25] MEDS ORDERED: INSULIN HUM LISPRO 100 UN/ML 3 ML VIAL SUBQ PRN (21:20)
[2017-12-25] MEDS ORDERED: KCL 2 MEQ/ML 20 MEQ/10 ML VIAL 20 MEQ in NS(*) 0.9% 1000 ML BAG 1,000 ML IV PRN (21:53)
--- NOTE | 2017-12-25 22:05 | History & Physical ---
History of Present Illness Chief Complaint The patient is a 77 year old male with PMH significant for bladder outlet obstruction, recent lumbar surgery and multiple myeloma who presents with inability to urinate and generalized weakness today. He has been constipated as well with last BM about one week ago. History of Present Illness The patient underwent L2-L5 laminectomy with Dr. Carcamo on December 06. His surgery went well but he had postoperative issues including tachycardia ( multifocal atrial tachycardia), hypokalemia, urinary retention (discharged with Hickey), elevation of his LFTs (etiology unclear). He followed up with Dr. Carcamo last week and was doing well in terms of his lumbar laminectomy. He also saw Dr. Sidhu in follow up last Wednesday and had his Hikcey removed. A UA showed pyuria and he was started on Cipro 500mg bid. He saw his PCP, Dr. Kim, who repeated his LFTs which were much improved. After surgery, the patient developed posterior neck pain and has been having PT through Home Health. He continues to have some pain. He has been using Voltaren Gel qid with good result. He has been avoiding his narcotic pain medication due to issues with constipation. The patient's notes he has not had a BM in about a week. Today he has been refusing to eat due to feeling full. Over the past 24-48 hours he has been unable to urinate. Today he has felt generally weak. He denies fever or chills. His low back is feeling well and the patient's notes his surgical wound is almost completely healed. There is no redness or drainage. The patient's posterior neck continues to feel stiff and painful but is no worse than it has been. The patient presented to [facility] ER this am to have a Hickey catheter placed. Lab work done in ER showed hypokalemia and hyponatremia. He was recommended for admission for replacement of his electrolytes and evaluation and treatment of his constipation which has not been alleviated with OTC treatments. 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 (8) Eczematous dermatitis Status: Chronic (9) Anemia Status: Chronic (10) Elevated LFTs Status: Resolved (11) Pre-diabetes Status: Chronic (12) Multifocal atrial tachycardia Status: Resolved (13) Bladder outlet obstruction Status: Chronic Home Meds Active Scripts Diclofenac Sodium 1% Gel (VOLTAREN 1% GEL) 100 Gm Gel..gram., 2 GM TOP QID, #2 TUBE 1 Refill Prov:GRISEL KIM MD 12/18/17 Lovastatin (LOVASTATIN) 20 Mg Tablet, 1 TAB PO QDAY, #90 TAB 4 Refills Prov:GRISEL KIM MD 08/13/17 Pyridoxine Hcl (VITAMIN B-6) 100 Mg Tablet, 1 TAB PO BID, #60 TAB Prov:GRISEL KIM MD 08/07/17 Metformin Hcl (METFORMIN HCL) 500 Mg Tablet, 1 TAB PO QDAY, #90 TAB 3 Refills Prov:GRISEL KIM MD 05/05/17 Triamcinolone Acetonide 0.1% Cr 15 Gm Tube (TRIAMCINOLONE ACETONIDE 0.1% CREAM) 15 Gm Cream..g., 1 YOLY TP BID Y for Psoriasis, #1 TUBE 5 Refills Prov:GRISEL KIM MD 03/18/17 Reported Medications Magnesium Hydroxide (MILK OF MAGNESIA) 400 Mg/5 Ml Oral.susp, 5 ML PO prn pain medication, BOTTLE 12/16/17 Ciprofloxacin Hcl (CIPROFLOXACIN HCL) 500 Mg Tablet, 1 TAB PO BID, #6 TAB 0 Refills 12/16/17 Bethanechol Chloride (URECHOLINE) 25 Mg Tablet, 1 TAB PO QID, #30 12/11/17 Tamsulosin Hcl (FLOMAX) 0.4 Mg Cap.er.24h, 1 CAP PO BID, #30 CAP 12/11/17 Diazepam (VALIUM) 5 Mg Tablet, 5 MG PO Q8H Y for MUSCLE SPASMS, #25 TAB 0 Refills 12/11/17 Hydrocodone Bit/Acetaminophen (HYDROCODON-ACETAMINOPHEN 5-325) 1 Each Tablet, 1- 2 TAB PO Q6H Y for PAIN, #49 TAB 0 Refills 12/11/17 Zoledronic Acid (ZOMETA) 4 Mg/5 Ml Vial, MG IV monthly, VIAL 11/25/17 Lenalidomide (REVLIMID) 10 Mg Capsule, 1 CAP PO QDAY 06/17/17 Oxygen (OXYGEN) Inha, 3 L INH cont 10/22/16 Multivitamin (MULTI VITAMIN DAILY) 1 Each Tablet, 1 TAB PO DAILY 07/09/16 Aspirin (ASPIR 81) 81 Mg Tablet.dr, 1 TAB PO QDAY 07/09/16 Allergies: Coded Allergies: pineapple (Verified Allergy, Intermediate, ITCHING , 12/01/17) Patient History: Diabetes mellitus (DM) FATHER, , Age:76 MOTHER, Age:98 FH: Alzheimers disease SISTER, Age:75 FH: Parkinson's disease BROTHER, Age:77 FH: chronic lung disease requiring oxygen BROTHER, Age:73 (black lung, forms examiner) FH: congestive heart failure MOTHER, Age:98 FH: gallbladder disease BROTHER, Age:77 SISTER, Age:80 SISTER, Age:66 FH: macular degeneration MOTHER, Age:98 Other Social/Family Hx The patient is and lives with his in [place]. He is retired. Hx Smoking: Yes (12 - 1 PPD FOR 60 YRS, QUIT 2016) Smoking Status: Former Smoker Exposure to Second Hand Smoke?: Yes Caffeine Intake: Coffee Caffeine/Cups Per Day: RECENTLY STOPPED DRINKING COFFEE Hx Alcohol Use: Yes Alcohol Use: Occassional Hx Substance Use Disorder: No Social Drug Use: Never History of IV Drug Use: No Review of Systems All Systems Reviewed/Normal: Yes, Except as Noted Constitutional: No Fever, No Chills Neurological: Weakness Cardiovascular: No Chest Pain Respiratory: No Shortness of Breath Gastrointestinal: No Nausea, No Vomiting, Constipation Genitourinary: Other (Urinary retention.), No Dysuria Musculoskeletal: Pain (Posterior neck. Low back.) Psychiatric: Depression Exam Vital Signs Vital Signs Date Time Temp Pulse Resp B/P (MAP) Pulse Ox O2 Delivery O2 Flow Rate FiO2 12/25/17 19:36 73 101/68 (79) 95 12/25/17 19:35 97.4 12/25/17 17:07 18 Nasal Cannula General Appearance: Alert, Awake, No Acute Distress, Afebrile Neuro: No Gross deficits Eyes: PERRLA ENT: Moist Mucous Membranes Cardiovascular: Regular Rate and Rhythm Respiratory: Clear to Auscultation GI: Other (Abdomen slightly distended and diffusely tender to palpation. BS positive and quite active.) Extremities: Warm, Perfused, Other (Trace edema, both feet.) Integumentary: Other (Per nursing staff the wound is clean and dry without redness, swelling or drainage.) Psych: Alert & Oriented X3, Appropriate Mood & Affect Medical Decision Making Data Points Result Diagram: 12/25/17 17412/25/17 174 Item Value Date Time Calcium Level 8.1 mg/dl L 12/25/17 1742 Total Bilirubin 1.1 mg/dl 12/25/17 1742 Aspartate Amino Transf (AST/SGOT) 35 U/L 12/25/17 1742 Alanine Aminotransferase (ALT/SGPT) 44 U/L 12/25/17 1742 Alkaline Phosphatase 253 U/L H 12/25/17 1742 Total Protein 6.2 g/dl L 12/25/17 1742 Albumin 3.3 g/dl L 12/25/17 1742 Urine Color Yellow 12/25/17 1732 Urine Clarity Clear 12/25/17 1732 Urine pH 6.0 pH 12/25/17 1732 Urine Specific [place] 1.006 12/25/17 1732 Urine Protein 30 mg/dL 12/25/17 1732 Urine Glucose (UA) 150 mg/dL H 12/25/17 1732 Urine Ketones Negative mg/dL 12/25/17 1732 Urine Blood Small 12/25/17 1732 Urine Nitrite Negative 12/25/17 1732 Urine Bilirubin Negative 12/25/17 1732 Urine Urobilinogen Negative mg/dL 12/25/17 1732 Urine Leukocyte Esterase Negative 12/25/17 1732 Urine RBC <1 /HPF 12/25/17 1732 Urine WBC 1 /HPF 12/25/17 1732 Urine Squamous Epithelial Cells None /LPF 12/25/17 1732 Urine Bacteria Negative /HPF 12/25/17 1732 Urine Mucus None /HPF 12/25/17 1732 Assessment and Plan Problems: (1) Hypokalemia Status: Acute Assessment & Plan: The patient received a K-rider in the ER. Will add potassium to his IV fluids as well. Will watch on telemetry and recheck labs in am. (2) Hyponatremia Status: Acute Assessment & Plan: Will gently hydrate with NS. Repeat CMP in am. (3) Urinary retention Status: Acute Assessment & Plan: Hickey catheter placed with return of 1000cc of urine. Continue Flomax bid. Consult urology if retention persists. UA negative. (4) Constipation Status: Acute Assessment & Plan: Constipation protocol ordered. (5) CKD (chronic kidney disease) Status: Chronic Assessment & Plan: Looking back at the EMR, the patient has had elevation of his creatinine since April of 2017. His creatinine is currently higher than his baseline. Will gently hydrate and monitor labs. (6) COPD (chronic obstructive pulmonary disease) Status: Chronic Assessment & Plan: Continue O2. (7) Pre-diabetes Status: Chronic Assessment & Plan: The patient takes metformin 500 daily if his sugar is 100 or greater. His last HgA1c was 5.3 in July. Will repeat. His UA did show 150mg/dL of glucose. (8) Multiple myeloma Status: Chronic Assessment & Plan: Continue Revlimid. The patient's will bring in his medication. (9) Anemia Status: Chronic Assessment & Plan: Likely due to above. Will monitor. Time Spent on Plan of Care: < 30 min Copies to: GRISEL KIM MD; TATIANNA SIDHU MD; KIMMIE CARCAMO MD Venous Thromboembolism Antithrombotics Is Pt On Any Antithrombotics?: No Prophylaxis Tx Contraindicated Pharmacological Contraindicati: Medical Contraindication (Anemia.) Exam Sepsis Risk: No Definite Risk GEORGE GUPTA MD Dec 25, 2017 22:05
[2017-12-25] MEDS: LOVASTATIN 20 MG TAB PO SCH (22:48)
[2017-12-25] MEDS: DOCUSATE SODIUM 100 MG CAP PO SCH (22:48)
[2017-12-25] MEDS: TAMSULOSIN HCL 0.4 MG CAP PO SCH (22:48)
[2017-12-25] MEDS: CIPROFLOXACIN 500 MG TAB PO SCH (22:48)
[2017-12-25 23:36] VITALS: BP 108/64
[2017-12-26] MEDS ORDERED: KCL/NS* 20 MEQ/1000 ML PREMIX 1,000 ML IV ONE (00:13)
[2017-12-26 03:47] VITALS: BP 101/70
[2017-12-26 06:16] LABS: PLATELET COUNT, AUTOMATED 187 K/uL (150-450)
[2017-12-26 07:44] VITALS: BP 107/71
[2017-12-26] MEDS: TAMSULOSIN HCL 0.4 MG CAP PO SCH ×2 (08:19→17:15)
[2017-12-26] MEDS: BETHANECHOL CHL 25 MG TAB PO SCH ×4 (08:19→20:53)
[2017-12-26] MEDS: ASPIRIN 81 MG ENTERIC COATED PO SCH (08:19)
[2017-12-26] MEDS: POLYETHYLENE GLYCOL 17 GM PKT PO SCH (08:20)
[2017-12-26] MEDS: CIPROFLOXACIN 500 MG TAB PO SCH ×2 (08:20→20:54)
[2017-12-26] MEDS: DOCUSATE SODIUM 100 MG CAP PO SCH ×2 (08:20→20:53)
[2017-12-26] MEDS: PYRIDOXINE HCL 50 MG TAB PO SCH ×2 (09:42→20:52)
[2017-12-26] MEDS: DICLOFENAC SOD 100 GM GEL TOP SCH ×6 (10:13→20:59)
--- NOTE | 2017-12-26 10:23 | Hospitalist Progress Note ---
Subjective Progress Notes Subjective He reports some abdominal cramping. No real BM as of yet. Physical Exam Vital Signs Date Time Temp Pulse Resp B/P (MAP) Pulse Ox O2 Delivery O2 Flow Rate FiO2 12/26/17 07:51 99 Nasal Cannula 3.0 12/26/17 07:44 97.8 60 12 107/71 (83) Intake and Output 12/27/17 07:00 Intake Total 1332 ml Balance 1332 ml Intake Oral 620 ml IV Total 712 ml # Bowel Movements 1 General Appearance: Alert, Awake Cardiovascular: Other (fairly regular) Respiratory: Clear to Auscultation GI: Other (soft/BS present - possibly hyperactive) Extremities: Warm, Perfused Result Diagram: 12/26/17 0507 12/26/17 0507 Assessment and Plan Problems: (1) Hypokalemia Status: Acute Assessment & Plan: Improved/resolved with IV supplements. Watch labs. (2) Hyponatremia Status: Acute Assessment & Plan: Improved with IV fluids. Watch labs. (3) Urinary retention Status: Acute Assessment & Plan: Hickey catheter placed with return of 1000cc of urine. Continue Flomax BID. Consult urology if retention persists. UA negative. (4) Constipation Status: Acute Assessment & Plan: Constipation protocol started. Will give Fleets enema this AM. (5) CKD (chronic kidney disease) Status: Chronic Assessment & Plan: Improved. Now near his baseline. Looking back at the EMR, the patient has had elevation of his creatinine since April of 2017. Monitor labs. (6) COPD (chronic obstructive pulmonary disease) Status: Chronic Assessment & Plan: Continue O2. (7) Pre-diabetes Status: Chronic Assessment & Plan: The patient previously was on metformin 500 daily. His last HgA1c was 5.3 in July. Will watch glucoses. (8) Multiple myeloma Status: Chronic Assessment & Plan: Continue Revlimid. The patient's will bring in his medication. (9) Anemia Status: Chronic Assessment & Plan: Likely due to above. Will monitor. Exam Sepsis Risk: No Definite Risk ADA GUPTA MD Dec 26, 2017 10:23
[2017-12-26] MEDS: KCL/NS* 20 MEQ/1000 ML PREMIX 1,000 ML IV PRN ×2 (10:36→17:12)
[2017-12-26 11:48] VITALS: BP 102/59
[2017-12-26 12:07] VITALS: Ht 182.9 cm; Wt 83.2 kg
[2017-12-26] MEDS: MULTIVITAMINS TAB PO SCH (13:23)
[2017-12-26 16:58] VITALS: BP 96/59
[2017-12-26 19:02] VITALS: BP 92/61
[2017-12-26] MEDS: LOVASTATIN 20 MG TAB PO SCH (20:54)
[2017-12-26] MEDS: LENALIDOMIDE PO SCH (20:54)
[2017-12-26 22:25] VITALS: BP 94/57
[2017-12-27] VITALS (20 sets, daily range): BP systolic 82–109; BP diastolic 41–83
[2017-12-27] MEDS: KCL/NS* 20 MEQ/1000 ML PREMIX 1,000 ML IV PRN ×2 (02:20→18:28)
[2017-12-27] MEDS: DICLOFENAC SOD 100 GM GEL TOP SCH ×6 (02:20→22:56)
[2017-12-27 06:11] LABS: PLATELET COUNT, AUTOMATED 159 K/uL (150-450)
--- NOTE | 2017-12-27 06:13 | EKG ---
FACILITY: [facility] PATIENT NAME: ALEXIA PABON : [id number] MR: [id number] V: [id number] EXAM DATE: ORDERING PHYSICIAN: ADA GUPTA TECHNOLOGIST: SABINO Test Reason : ? PROLONGED QT Blood Pressure : / mmHG Vent. Rate : 065 BPM Atrial Rate : 065 BPM P-R Int : 156 ms QRS Dur : 090 ms QT Int : 446 ms P-R-T Axes : 086 073 076 degrees QTc Int : 463 ms Sinus rhythm with premature atrial complexes Otherwise normal ECG When compared with ECG of 08-DEC-2017 13:24, Previous ECG has undetermined rhythm, needs review ST no longer depressed in Anterior leads Nonspecific T wave abnormality no longer evident in Inferior leads QT has shortened Referred By: Confirmed By:
[2017-12-27] MEDS: TAMSULOSIN HCL 0.4 MG CAP PO SCH ×2 (09:00→18:16)
--- NOTE | 2017-12-27 09:22 | RADIOLOGY IMAGING REPORT ---
FACILITY: [facility] [place] PATIENT NAME: Williams Munoz : 1940 MR: [id number] V: [id number] EXAM DATE: ORDERING PHYSICIAN: ADA GUPTA TECHNOLOGIST: Location: [facility] Patient: Williams Munoz : 1940 Visit/Account:[id number] Date of Sevice: 12/27/2017 CHEST PA AND LAT Indication: Preoperative. Comparison: Chest x-ray 11/18/2017. Findings: Lungs: There is mild hyperinflation, unchanged. The lungs are clear. Mediastinum/pulmonary vasculature: Heart size and pulmonary vasculature are normal. Bones/soft tissues: Normal. IMPRESSION: 1. Mild hyperinflation consistent with COPD. 2. Clear lungs. Report Dictated By: Talon Resendiz at 12/27/2017 9:13 AM Report E-Signed By: Talon Resendiz at 12/27/2017 9:17 AM WSN:[id number]
[2017-12-27] MEDS ORDERED: FAMOTIDINE(*) 20MG/50ML PREMIX 50 ML IVPB ONE (09:48)
[2017-12-27] MEDS ORDERED: NORMOSOL R SOLN(*) 1000 ML BAG 1,000 ML IV ONE (09:48)
[2017-12-27] MEDS ORDERED: LEVOFLOXACIN/D5W*500 MG/100 ML 100 ML IVPB ONE (10:00)
[2017-12-27] MEDS ORDERED: MINERAL OIL LIGHT 10 ML VIAL ONE (10:23)
--- NOTE | 2017-12-27 10:30 | Hospitalist Progress Note ---
Subjective Progress Notes Subjective He was admitted with hyponatremia and urinary retention. He has no complaints this morning. He had no acute events overnight. Patient Complains of: Cardiovascular: No: Chest Pain Respiratory: No: Shortness of Breath Physical Exam Vital Signs Date Time Temp Pulse Resp B/P (MAP) Pulse Ox O2 Delivery O2 Flow Rate FiO2 12/27/17 09:13 97.6 59 14 101/64 (76) 98 Nasal Cannula 3.0 Intake and Output 12/28/17 01:00 Output Total 2975 ml Balance -2975 ml Output Urine Total 2975 ml General Appearance: Alert, Awake, No Acute Distress, Afebrile Neuro: No Gross deficits Cardiovascular: Regular Rate and Rhythm Respiratory: No Respiratory Distress, Clear to Auscultation Extremities: Perfused, No Edema Psych: Alert & Oriented X3, Appropriate Mood & Affect Result Diagram: 12/27/17 0555 12/27/17 0555 Assessment and Plan Problems: (1) Hypokalemia Status: Acute Assessment & Plan: Improved/resolved with IV supplements. Watch labs. (2) Hyponatremia Status: Acute Assessment & Plan: Improved with IV fluids. Watch labs. (3) Urinary retention Status: Acute Assessment & Plan: Hickey catheter placed with return of 1000cc of urine. Continue Flomax BID. Urology consulted. Dr Coelho plans to perform TURP today. UA negative. (4) Constipation Status: Acute Assessment & Plan: Constipation protocol was started. He had successful bowel movement. (5) CKD (chronic kidney disease) Status: Chronic Assessment & Plan: Improved. Now near his baseline. Looking back at the EMR, the patient has had elevation of his creatinine since April of 2017. Monitor labs. (6) COPD (chronic obstructive pulmonary disease) Status: Chronic Assessment & Plan: Continue O2. (7) Pre-diabetes Status: Chronic Assessment & Plan: The patient previously was on metformin 500 daily. His last HgA1c was 5.3 in July. Will watch glucoses. He will get SS insulin to cover if needed. (8) Multiple myeloma Status: Chronic Assessment & Plan: Continue Revlimid. The patient's will bring in his medication. (9) Anemia Status: Chronic Assessment & Plan: Likely due to above. Will monitor. Exam Sepsis Risk: No Definite Risk THUY QUIROZ DIE SETTER Dec 27, 2017 10:29
[2017-12-27] MEDS ORDERED: BELLADONNA ALK/OPIUM 60MG SUPP PR ONE (12:36)
[2017-12-27] MEDS ORDERED: GLYCOPYRROLATE 0.2MG/ML 1 ML INJ ONE (12:37)
[2017-12-27] MEDS ORDERED: GLYCOPYRROLATE 0.2MG/ML 1 ML INJ IVP PRN (12:40)
[2017-12-27] MEDS ORDERED: ZOLPIDEM TARTRATE 5 MG TAB PO PRN (12:40)
[2017-12-27] MEDS ORDERED: LR(*) 1000 ML BAG 1,000 ML IV PRN (12:40)
[2017-12-27] MEDS ORDERED: PROPANTHELINE BROMIDE 15MG TAB PO PRN (12:40)
[2017-12-27] MEDS ORDERED: ACETAMIN/CODEINE #3 300-30 MG PO PRN (12:40)
[2017-12-27] MEDS ORDERED: BELLADONNA ALK/OPIUM 60MG SUPP PR PRN (12:40)
[2017-12-27] MEDS ORDERED: FLUSH 10 ML SYR IVP PRN (12:40)
[2017-12-27] MEDS: BETHANECHOL CHL 25 MG TAB PO SCH ×4 (13:00→20:48)
[2017-12-27] MEDS: ASPIRIN 81 MG ENTERIC COATED PO SCH (15:04)
[2017-12-27] MEDS: MULTIVITAMINS TAB PO SCH (15:04)
[2017-12-27] MEDS: POLYETHYLENE GLYCOL 17 GM PKT PO SCH (15:10)
[2017-12-27] MEDS: DOCUSATE SODIUM 100 MG CAP PO SCH ×2 (15:11→20:48)
[2017-12-27] MEDS: PYRIDOXINE HCL 50 MG TAB PO SCH ×2 (15:11→20:48)
[2017-12-27] MEDS ORDERED: CALCIUM GLUC(*)10% 100MG/ML VL 1,000 MG in NS(*) 0.9% 100 ML BAG 100 ML IVPB ONE (19:50)
[2017-12-27] MEDS: NEOMYCIN/POLYMYX/BACITR OINT 1 PACKET TP SCH (20:48)
[2017-12-27] MEDS: LOVASTATIN 20 MG TAB PO SCH (20:48)
[2017-12-27] MEDS: FAMOTIDINE 20 MG TAB PO SCH (20:48)
[2017-12-27] MEDS: LENALIDOMIDE PO SCH (20:49)
[2017-12-27] MEDS: GENTAMICIN/NS 80 MG/100 ML PB 100 ML IVPB SCH (22:44)
[2017-12-28 03:24] VITALS: BP 91/43
--- NOTE | 2017-12-28 04:08 | OPERATIVE REPORT 1 ---
EVENT DATE: December 27, 2017 SURGEON: Jacky Coelho MD ANESTHESIOLOGIST: Clovis Gottlieb MD ANESTHESIA: General. PREOPERATIVE DIAGNOSES 1. Urinary retention, etiology ?. 2. Probable outlet obstruction from the prostate gland. POSTOPERATIVE DIAGNOSES 1. Urinary retention, etiology ?. 2. Probable outlet obstruction from the prostate gland. PROCEDURE PERFORMED 1. Cystourethroscopy. 2. Transurethral resection of the prostate. 3. Vaporization of the prostate. DESCRIPTION OF PROCEDURE Under general anesthetic, the patient was prepped and draped in the extended lithotomy position. The 21 panendoscope admitted through the urethra into the bladder. The urethra was normal. The prostate showed trilobar hyperplasia with obstruction, mostly by a median bar. Trigone and ureteral orifices were normal. Bladder showed 4+ trabeculation, no other demonstrable lesions. Bladder filled under gravity. Flow was measured to a total of approximately 800 mL. The resectoscope was introduced. The urethra sounded easily to 30 Slovenian. A resection was begun by resecting the median bar, median lobe back to the verumontanum. The tissue was resected down to the bladder neck area circumferentially. Bleeding was controlled with spot coagulation. Right lateral lobe tissue was resected. Posterior tissue was resected with finger in the rectum. The apical tissue was resected at conclusion of the procedure. Bleeding was controlled with spot coagulation and vaporization. Chips were evacuated from the bladder. Entire prostatic capsule was vaporized. Bleeding appeared to be satisfactorily controlled. Chips appeared to be satisfactorily evacuated. There were a few calculi that were uncovered, mostly in the left apical area of the prostate. Bladder was filled under gravity flow, and scope was withdrawn. There was good efflux of irrigation fluid that cut off almost immediately upon withdrawal of the scope. The 22 Hickey was inserted through the urethra over catheter guide and secured without any difficulty. Irrigation was satisfactory at the conclusion of the procedure. Estimated blood loss was a few milliliters. Patient tolerated the procedure satisfactorily and returned to recovery room in satisfactory condition. INDICATION FOR PROCEDURE This is a 77-year-old white male complaining of inability to urinate, fullness following his orthopedic procedure approximately one month ago. Patient had been given three trials of voiding on Flomax twice a day and urecholine. Patient voids seemingly to his satisfaction for a few days, and then totally shuts down, as he did this past Wednesday. Patient was found to have hyponatremia and hypokalemia. Also was constipated. Those problems have been resolved. Options were discussed with the patient, and he preferred to proceed with hopefully definitive treatment. I believe that has been accomplished with the transurethral resection of the prostate and vaporization of the prostate. DISCHARGE INSTRUCTIONS Patient will be ready for probable discharge home in the a.m., to force fluids, 2 L per day. Activities are restricted to careful ambulation and as directed by the orthopedist. He is to continue his usual medications. Patient will be discharged home on Cipro, Pepcid, Pyridium and Aroda therapy. Plan followup in the office. JUDYD
[2017-12-28 06:03] LABS: PLATELET COUNT, AUTOMATED 167 K/uL (150-450)
[2017-12-28 07:11] VITALS: BP 95/59
[2017-12-28] MEDS ORDERED: LR(*) 1000 ML BAG 1,000 ML IV ONE (07:55)
[2017-12-28] MEDS ORDERED: NYSTATIN 100,000 U/GM PWD 15GM TP SCH (09:00)
[2017-12-28] MEDS: BETHANECHOL CHL 25 MG TAB PO SCH (09:20)
[2017-12-28] MEDS: POLYETHYLENE GLYCOL 17 GM PKT PO SCH (09:20)
[2017-12-28] MEDS: ASPIRIN 81 MG ENTERIC COATED PO SCH (09:20)
[2017-12-28] MEDS: PYRIDOXINE HCL 50 MG TAB PO SCH (09:20)
[2017-12-28] MEDS: DOCUSATE SODIUM 100 MG CAP PO SCH (09:20)
[2017-12-28] MEDS: FAMOTIDINE 20 MG TAB PO SCH (09:20)
[2017-12-28] MEDS: TAMSULOSIN HCL 0.4 MG CAP PO SCH (09:20)
[2017-12-28] MEDS: NEOMYCIN/POLYMYX/BACITR OINT 1 PACKET TP SCH (09:20)
[2017-12-28] MEDS ORDERED: cefTRIAXone(*) 1 GM VIAL 1 GM in NS(*) 0.9% 100 ML ADDVANT BAG 100 ML IVPB SCH (10:00)
[2017-12-28] MEDS ORDERED: CALC600T63 PO (10:05)
[2017-12-28] MEDS ORDERED: CHOL10005 PO (10:05)
--- NOTE | 2017-12-28 10:23 | Hospitalist Depart ---
Discharge Summary Reason for Hosp/Final Diag: (1) Hypokalemia Status: Acute Hospital Course & Plan: Improved/resolved with IV supplements. (2) Hyponatremia Status: Acute Hospital Course & Plan: Improved with IV fluids. (3) Urinary retention Status: Acute Hospital Course & Plan: Hickey catheter placed with return of 1000cc of urine. Continue Flomax BID. Urology consulted. Dr Coelho plans to perform TURP today. UA negative. (4) Constipation Status: Acute Hospital Course & Plan: Constipation protocol was started. He had successful bowel movement. (5) CKD (chronic kidney disease) Status: Chronic Hospital Course & Plan: Improved. Now near his baseline. Looking back at the EMR, the patient has had elevation of his creatinine since April of 2017. (6) COPD (chronic obstructive pulmonary disease) Status: Chronic Hospital Course & Plan: Continue O2. (7) Pre-diabetes Status: Chronic Hospital Course & Plan: The patient previously was on metformin 500 daily. His last HgA1c was 5.3 in July. (8) Multiple myeloma Status: Chronic Hospital Course & Plan: Continue Revlimid. The patient's will bring in his medication. (9) Anemia Status: Chronic Hospital Course & Plan: Likely due to above. (10) Hypocalcemia Status: Acute Hospital Course & Plan: Secondary to Zometa. He does not take Calcium or Vitamin D supplements. He was given 2 IV infusions of Calcium. He will follow up with cancer center next week for recheck of Calcium. He will also start Calcium 1200mg daily with Vitamin D 1000 IU daily. Departure Latest Vital Signs Vital Signs 12/28/17 07:11 Temp 98.4 Pulse 63 Resp 14 B/P (MAP) 95/59 (71) Pulse Ox 96 O2 Delivery Nasal Cannula O2 Flow Rate 2.0 Weight (Pounds): 183 Weight (Ounces): 6.0 Result Diagram: 12/28/17 0534 12/28/17 05 Condition: Improved Discharge: Home, Self Care PT/OT Follow Up For: PT For Surgical Rehab Discharge Instructions Home Meds Active Scripts Diclofenac Sodium 1% Gel (VOLTAREN 1% GEL) 100 Gm Gel..gram., 2 GM TOP QID, #2 TUBE 1 Refill Prov:GRISEL REID MD 12/18/17 Lovastatin (LOVASTATIN) 20 Mg Tablet, 1 TAB PO QDAY, #90 TAB 4 Refills Prov:GRISEL REID MD 08/13/17 Pyridoxine Hcl (VITAMIN B-6) 100 Mg Tablet, 1 TAB PO BID, #60 TAB Prov:GRISEL REID MD 08/07/17 Metformin Hcl (METFORMIN HCL) 500 Mg Tablet, 1 TAB PO QDAY, #90 TAB 3 Refills Prov:GRISEL REID MD 05/05/17 Triamcinolone Acetonide 0.1% Cr 15 Gm Tube (TRIAMCINOLONE ACETONIDE 0.1% CREAM) 15 Gm Cream..g., 1 YOLY TP BID Y for Psoriasis, #1 TUBE 5 Refills Prov:GRISEL REID MD 03/18/17 Reported Medications Magnesium Hydroxide (MILK OF MAGNESIA) 400 Mg/5 Ml Oral.susp, 5 ML PO prn pain medication, BOTTLE 12/16/17 Ciprofloxacin Hcl (CIPROFLOXACIN HCL) 500 Mg Tablet, 1 TAB PO BID, #6 TAB 0 Refills 12/16/17 Bethanechol Chloride (URECHOLINE) 25 Mg Tablet, 1 TAB PO QID, #30 12/11/17 Tamsulosin Hcl (FLOMAX) 0.4 Mg Cap.er.24h, 1 CAP PO BID, #30 CAP 12/11/17 Diazepam (VALIUM) 5 Mg Tablet, 5 MG PO Q8H Y for MUSCLE SPASMS, #25 TAB 0 Refills 12/11/17 Hydrocodone Bit/Acetaminophen (HYDROCODON-ACETAMINOPHEN 5-325) 1 Each Tablet, 1- 2 TAB PO Q6H Y for PAIN, #49 TAB 0 Refills 12/11/17 Zoledronic Acid (ZOMETA) 4 Mg/5 Ml Vial, MG IV monthly, VIAL 11/25/17 Lenalidomide (REVLIMID) 10 Mg Capsule, 1 CAP PO QDAY 06/17/17 Oxygen (OXYGEN) Inha, 3 L INH cont 10/22/16 Multivitamin (MULTI VITAMIN DAILY) 1 Each Tablet, 1 TAB PO DAILY 07/09/16 Aspirin (ASPIR 81) 81 Mg Tablet.dr, 1 TAB PO QDAY 07/09/16 Diet: Regular Activity: As Tolerated Special Instructions: Start taking Calcium 1200mg daily and Vitamin D 1,000IU daily. Follow up with Cancer Center next week for repeat Calcium level. Copies to: ECORO-NZANG,MIRTA OUTSOLE HANDLER-C, ONC Venous Thromboembolism Antithrombotics Is Pt On Any Antithrombotics?: No THUY QUIROZ OUTSOLE HANDLER Dec 28, 2017 10:23
[2017-12-28] MEDS: GENTAMICIN/NS 80 MG/100 ML PB 100 ML IVPB SCH (10:48)
[2017-12-28 10:56] VITALS: BP 90/65
[2017-12-28] MEDS ORDERED: FLUC150T40 PO (11:16)
[2017-12-28] MEDS ORDERED: FAMO20TA28 PO (11:17)
[2017-12-28] MEDS ORDERED: DOCU-416 PO (11:17)
[2017-12-28] MEDS ORDERED: [UNRECOGNIZED DRUG - CODE] PO (11:19)
[2017-12-28] MEDS ORDERED: CIPR-214 PO (11:19)
[2017-12-28] MEDS ORDERED: NS 0.9% IVPB ONE (12:00)
[2017-12-28] MEDS: MULTIVITAMINS TAB PO SCH (12:00)
[2017-12-28] MEDS ORDERED: CALCIUM GLUC IVPB ONE (12:00)
== END 2017-12-28 13:30 | disposition home health service (06) | DRG 713 ==
LOC: ER 17:32 → MED 18:51
PROVIDERS: ADMIT Internal Medicine; ATTEND Internal Medicine
PROC: 0VT08ZZ Resection of Prostate, Via Natural or Artificial Opening Endoscopic (ICD-10-PCS; principal; 2017-12-27 10:32)
DX: N40.1 Benign prostatic hyperplasia with lower urinary tract symptoms (principal); N13.8 Other obstructive and reflux uropathy; C90.00 Multiple myeloma not having achieved remission; E87.1 Hypo-osmolality and hyponatremia; R33.8 Other retention of urine; E87.6 Hypokalemia; R33.9 Retention of urine, unspecified; K59.00 Constipation, unspecified; N18.9 Chronic kidney disease, unspecified; R73.03 Prediabetes; E83.51 Hypocalcemia; D63.0 Anemia in neoplastic disease; E78.5 Hyperlipidemia, unspecified; J43.9 Emphysema, unspecified; L30.9 Dermatitis, unspecified; Z99.81 Dependence on supplemental oxygen; Z87.891 Personal history of nicotine dependence
CPT/HCPCS: 36415; 36416; 71046; 74018; 81001; 82040; 82247; 82310; 82374; 82435; 82565; 82947; 82948; 83036; 84075; 84132; 84153; 84155; 84295; 84450; 84460; 84520; 85025; 87088; 88305; 93005; A4346; J0610; J0696; J1100; J1580; J1956; J2001; J2370; J2405; J2704; J3010; J3480; J3490; J7030; J7050; J7120

== ENCOUNTER → 2017-12-31 | Outpatient (CLI) | payer MEDICARE, OTHER ==
[2017-12-26 12:07] VITALS: BMI 24.8
[~2017-12-31] MED LIST changes: +CALC600T63 PO; +CHOL10005 PO; +DOCU-416 PO; +FAMO20TA28 PO; +FLUC150T40 PO; +[UNRECOGNIZED DRUG - CODE] PO
== END ==
LOC: LAB 16:02
DX: N30.21 Other chronic cystitis with hematuria (principal)
CPT/HCPCS: 81001; 87088

== ENCOUNTER → 2017-12-31 | Outpatient (CLI) | payer MEDICARE, OTHER ==
[2017-12-26 12:07] VITALS: BMI 24.8
== END ==
LOC: LAB 16:06
PROVIDERS: ATTEND Internal Medicine
DX: R94.5 Abnormal results of liver function studies (principal)
CPT/HCPCS: 36415; 82040; 82247; 82310; 82374; 82435; 82565; 82947; 84075; 84132; 84155; 84295; 84450; 84460; 84520

== ENCOUNTER → 2018-01-04 | Outpatient (CLI) | payer MEDICARE, OTHER ==
[2017-12-26 12:07] VITALS: BMI 24.8
== END ==
LOC: LAB 16:21
PROVIDERS: ATTEND Internal Medicine
DX: E87.1 Hypo-osmolality and hyponatremia (principal); E87.6 Hypokalemia; N18.3 Chronic kidney disease, stage 3 (moderate)
CPT/HCPCS: 36415; 82310; 82374; 82435; 82565; 82947; 84132; 84295; 84520

== ENCOUNTER → 2018-02-15 | Outpatient (CLI) | payer MEDICARE, OTHER ==
[2017-12-26 12:07] VITALS: BMI 24.8
== END ==
LOC: LAB 09:01
PROVIDERS: ATTEND Internal Medicine Hematology
DX: D64.9 Anemia, unspecified (principal); C90.00 Multiple myeloma not having achieved remission; E88.09 Other disorders of plasma-protein metabolism, not elsewhere classified
CPT/HCPCS: 83883; 84156; 86335

== ENCOUNTER → 2018-02-28 | Outpatient (CLI) | payer MEDICARE, OTHER ==
[2017-12-26 12:07] VITALS: BMI 24.8
[~2018-02-28] MED LIST changes: -METF-411 PO; +METF-450 PO
== END ==
LOC: LAB 11:23
PROVIDERS: ATTEND Internal Medicine Hematology
DX: D64.9 Anemia, unspecified (principal); E88.09 Other disorders of plasma-protein metabolism, not elsewhere classified
CPT/HCPCS: 82232; 83615; 83883; 84550; 86334

== ENCOUNTER → 2018-02-28 | Outpatient (CLI) | payer MEDICARE, OTHER ==
[2017-12-26 12:07] VITALS: BMI 24.8
[2018-02-28 11:06] LABS: PLATELET COUNT, AUTOMATED 91 K/uL (150-450)
--- NOTE | 2018-02-28 14:12 | RADIOLOGY IMAGING REPORT ---
FACILITY: [facility] - [place] PATIENT NAME: Williams Munoz : 1940 MR: [id number] V: [id number] EXAM DATE: [id number] ORDERING PHYSICIAN: GREG MURPHY TECHNOLOGIST: Location: [facility] Patient: Williams Munoz : 1940 Visit/Account:[id number] Date of Sevice: 02/28/2018 KIDNEYS EXAMINATION: Renal ultrasound. History: AK I, chronic kidney disease COMPARISON STUDIES: July 06, 2016 FINDINGS: Kidneys: Right kidney- 9.1 x 3.9 x 4.8 cm Left kidney- 9.2 x 4.9 x 5.2 cm Uniform and symmetric blood flow in each kidney by Doppler ultrasound. Hydronephrosis: none Resistive index on the right 0.7 on the left 0.6. There is no evidence of cortical thinning Bladder: Prevoid volume 56 mL. Post void residual 3.3 mL. Bilateral ureteral jets are present Abdominal aorta and IVC: Aorta and IVC are patent by Doppler ultrasound. IMPRESSION: Unremarkable renal ultrasound Report Dictated By: Virginia Daniel MD at 02/28/2018 2:05 PM Report E-Signed By: Virginia Daniel MD at 02/28/2018 2:09 PM WSN:[email or web address]
== END ==
LOC: US 01:19
PROVIDERS: ATTEND Internal Medicine Nephrology
DX: Z13.9 Encounter for screening, unspecified (principal); N17.9 Acute kidney failure, unspecified; N18.3 Chronic kidney disease, stage 3 (moderate)
CPT/HCPCS: 36415; 76705; 81001; 82040; 82310; 82374; 82435; 82565; 82570; 82947; 83735; 84100; 84132; 84156; 84295; 84520; 85025

== ENCOUNTER 2018-03-10 11:05 | Outpatient (RCR) | payer MEDICARE, OTHER ==
[2017-12-20 14:28] VITALS: BP 95/66
[2017-12-20 14:33] LABS: PLATELET COUNT, AUTOMATED 262 K/uL (150-450)
[2017-12-20 17:22] VITALS: BP 95/60
--- NOTE | 2017-12-21 17:04 | Oncology Progress Note ---
History of Present Illness Evaluation Evaluation Date: Dec 20, 2017 Primary Care Provider Primary Care Provider: Julio Turner MD Accompanied by Accompanied by: Ms. Cunningham, patient's Last seen by : Mookie 11/18/2017 Chief Complaint Chief Complaint Here for monthly Zometa, s/p hospitalization 12/06/17 for L2 to L5 laminectomy with L4-L5 posterolateral instrumented fusion patient has Multiple Myeloma on maintenance Revlimid therapy. Oncology History Oncology History history of emphysema and hypercholesterolemia. He had a normal CBC in July 2014. The patient was found lately to have anemia. His blood count on April 15, 2016 showed white count 7.1, hemoglobin 10.9, hematocrit 33.3%, platelets 272,000 and MCV normal at 90. His serum creatinine was 1.71 at that time and his glomerular filtration rate was 39 mL/min. Soluble transferrin receptor assay was normal at 4.3. Serum iron was 62. TIBC was 261. Iron saturation 23.8. Ferritin was 139. So, all his iron studies were within the normal range. EPO level was mildly elevated at 47; red cell folate was normal at 1252; serum folate was normal at more than 22. B12 was 360. Methylmalonic acid assay was normal at 0.25. Haptoglobin was high at 287. Repeat CBC showed hemoglobin 11.2, hematocrit 33, platelets 246,000, white count 7.3. Serum protein electrophoresis showed monoclonal protein of 1.95, but unfortunately no immunofixation was done. Bone marrow aspiration biopsy done on June 25, 2016 came back positive for lambda restricted plasmocytosis compatible with plasma cell myeloma with 20 to 40% of the core bone marrow biopsy positive for plasma cells. FISH for myeloma came back positive for 4p-, +5, 11q+, -13, 14q-, 16q-, and 17 adrian+. Skeletal bone survey done on June 25, 2016 did reveal multiple lucencies in the greater trochanter of the left hip and a void lucency seen on the lateral view of the skull in the frontal region. The patient started treatment with CyBorD chemotherapy on July 23, 2016. Patient finished his chemotherapy with CyBorD on June 17, 2017, and he started maintenance Revlimid therapy June 2017. Treatment Treatment Maintenance Revlimid 10mg PO daily and monthly Zometa HPI HPI Hussain Pena is a 77 year old man who has Multiple Myeloma Dx: 2017 on maintenance Revlimid therapy, and mouthy Zometa. On physical exam patient appears and voiced being in excruciating pain to the cervical neck area and shoulders. ain level 10/10. last pain medication was given to patitn by at around 6pm yesterday. Initially ordered a one time dose of morphine 2 mg Iv,. later was managed to retrieve diclofenac from patients car, and this was applied to neck and shoulders by RN and detailed instructions on how to apply remedy were given to patients . after 15 minutes, patient's pain level lowered to 2. The morphine IV was cancelled. patient informs me that leg bag was Dc this Am by home health RN, and he has voided more than three times, producing good amount of urine. Reports no other issues. s/p hospitalization 12/06/17 for L2 to L5 laminectomy with L4-L5 posterolateral instrumented fusion complicated on 12/09/17 by multifocal atrial tachycardia. treated with diltiazem drip as inpatient and he also developed bladder outlet obstruction, requiring a ramirez and Cirpo ppfx. Exacerbated by anemia and hypokalemia. He did receive transfusions. And the ramirez was switched to a leg bag on 12/14/2017 by Meliton Peralta. He has some neuropathy with numbness in his hands and feet. He is weak, tired and fatigued. 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 Living Conditions Lives with spouse. Ms. Cunningham. PMH Patient History: Diabetes mellitus (DM) FATHER, , Age:76 MOTHER, Age:98 FH: Alzheimers disease SISTER, Age:75 FH: Parkinson's disease BROTHER, Age:77 FH: chronic lung disease requiring oxygen BROTHER, Age:73 (black lung, tax examiner) FH: congestive heart failure MOTHER, Age:98 FH: gallbladder disease BROTHER, Age:77 SISTER, Age:80 SISTER, Age:66 FH: macular degeneration MOTHER, Age:98 Social/Occupational History Social History: Social History This is a 77 Yr old White male, he is M and has [] Children Hx Smoking: Yes (1/2 - 1 PPD FOR 60 YRS, QUIT 2016) Smoking Status: Former Smoker Exposure to Second Hand Smoke?: Yes When Quit Tobacco?: 60 YEARS AGO Allergies & Medications Allergies: Coded Allergies: pineapple (Verified Allergy, Intermediate, ITCHING , 12/01/17) Home Meds Active Scripts Diclofenac Sodium 1% Gel (VOLTAREN 1% GEL) 100 Gm Gel..gram., 2 GM TOP QID, #2 TUBE 1 Refill Prov:GRISEL REID MD 12/18/17 Lovastatin (LOVASTATIN) 20 Mg Tablet, 1 TAB PO QDAY, #90 TAB 4 Refills Prov:GRISEL REID MD 08/13/17 Pyridoxine Hcl (VITAMIN B-6) 100 Mg Tablet, 1 TAB PO BID, #60 TAB Prov:GRISEL REID MD 08/07/17 Metformin Hcl (METFORMIN HCL) 500 Mg Tablet, 1 TAB PO QDAY, #90 TAB 3 Refills Prov:GRISEL REID MD 05/05/17 Triamcinolone Acetonide 0.1% Cr 15 Gm Tube (TRIAMCINOLONE ACETONIDE 0.1% CREAM) 15 Gm Cream..g., 1 YOLY TP BID Y for Psoriasis, #1 TUBE 5 Refills Prov:GRISEL REID MD 03/18/17 Reported Medications Magnesium Hydroxide (MILK OF MAGNESIA) 400 Mg/5 Ml Oral.susp, 5 ML PO prn pain medication, BOTTLE 12/16/17 Ciprofloxacin Hcl (CIPROFLOXACIN HCL) 500 Mg Tablet, 1 TAB PO BID, #6 TAB 0 Refills 12/16/17 Bethanechol Chloride (URECHOLINE) 25 Mg Tablet, 1 TAB PO QID, #30 12/11/17 Tamsulosin Hcl (FLOMAX) 0.4 Mg Cap.er.24h, 1 CAP PO QPM, #30 CAP 12/11/17 Diazepam (VALIUM) 5 Mg Tablet, 5 MG PO Q8H Y for MUSCLE SPASMS, #25 TAB 0 Refills 12/11/17 Hydrocodone Bit/Acetaminophen (HYDROCODON-ACETAMINOPHEN 5-325) 1 Each Tablet, 1- 2 TAB PO Q6H Y for PAIN, #49 TAB 0 Refills 12/11/17 Zoledronic Acid (ZOMETA) 4 Mg/5 Ml Vial, MG IV monthly, VIAL 11/25/17 Lenalidomide (REVLIMID) 10 Mg Capsule, 1 CAP PO QDAY 06/17/17 Oxygen (OXYGEN) Inha, 3 L INH cont 10/22/16 Multivitamin (MULTI VITAMIN DAILY) 1 Each Tablet, 1 TAB PO DAILY 07/09/16 Aspirin (ASPIR 81) 81 Mg Tablet.dr, 1 TAB PO QDAY 07/09/16 Discontinued Reported Medications Docusate Calcium (SURFAK) 240 Mg Capsule, 1 CAP PO QDAY, #9 CAPSULE 0 Refills 12/11/17 Review of Systems Constitution: Positive for Appetite/Weight Change HEENT: EARS: Hearing Problems Respiratory: No Cough, No Expectoration, No Hemoptysis, Shortness of Breath, No OTHER Cardiovascular: No Chest Pain, No Orthopnea, No Edema, No Palpitations, No OTHER Gastrointestinal: No Nausea, No Vomitting, No Diarrehea, Constipation, No Heart Burn, No Swallowing Difficulties, No Abdominal Pain, No Other Gentiourinary: Other Musculoskeletal: Muscle Pain, Joint Pain, Other (cervical, shoulder pain) Hematological: Weakness, Fatigue Psychiatric: Anxiety, Other Vital Signs Vital Signs Temperature: 98.3 Pulse: 65 BP Systolic: 112 BP Diastolic: 84 Respiratory Rate: 16 O2 SAT: 97 O2 Delivery: Height (feet) 6 Height (inches) 72.00 Weight lb: 174 Weight oz: 6.0 Weight Kg (Ramiro): [id number] Pain: 10 on arrival, 2 after treatment of Diclofenac. ECOG -3Capable of only limited self-care; confined to bed or chair >50% of waking hours. Physical Exam General: Looks Stable HEENT: HEAD:Atraumatic Neck: Other (Pain) Lungs: Clear to Auscultation Heart: Regular Rate and Rhythm Abdomen: Soft and Nontender, Other Extremities: No Cyanosis, No Clubbing, No Edema, No Other Lymphatics: No Peripheral Lymphadenopathy, No Other Psychiatric: Mood appears normal, Affect appears normal Skin: Skin Rashes Breast: No No Masses, No No Nipple Discharge, No No Skin Changes, No Other Assessment and Plan Assessment and Plan Hussain Pena is a 77 year old man who has Multiple Myeloma Dx: 2017 on maintenance Revlimid therapy, and mouthy Zometa. patient presented to cancer center today for his monthly zometa. On physical exam patient appears and voiced being in excruciating pain to the cervical neck area and shoulders. ain level 10/10. last pain medication was given to patitn by at around 6pm yesterday. Initially ordered a one time dose of morphine 2 mg Iv,. later was managed to retrieve diclofenac from patients car, and this was applied to neck and shoulders by RN and detailed instructions on how to apply remedy were given to patients . after 15 minutes, patient painlevel lowered to 2. The morphine IV was cancelled. patient informs me that leg bag was Dc this Am by home health RN, and he has voided more than three times, producing good amount of urine. s/p hospitalization 12/06/17 for L2 to L5 laminectomy with L4-L5 posterolateral instrumented fusion complicated on 12/09/17 by multifocal atrial tachycardia. treated with diltiazem drip as inpatient and he also developed bladder outlet obstruction, requiring a ramirez and Cirpo ppfx. Exacerbated by anemia and hypokalemia. He did receive transfusions. And the ramirez was switched to a leg bag on 12/14/2017 by Meliton Peralta. DIAGNOSTIC DATA. reviewed within acceptable normal limits. 1. Multiple myeloma with IgG lambda monoclonal protein Dx:2017. currently treated on maintenance Revlimid 10mg daily and monthly Zometa. Patient received chemotherapy with CyBorD on July 23, 2016, and he completed 12 courses June 17, 2017. His IgG lambda monoclonal protein dropped from 1.9 at initial presentation , and currently 0.36 g/dL, which is stable. Beta-2 microglobulin was 4.7. Redby free light chain was normal, while lambda free light chain was high at 245. Skeletal bone survey showed multiple lucencies in the greater trochanter of the hip and the skull. Bone marrow aspiration biopsy June 25, 2016 revealed 20% to 40% lambda restricted plasmacytosis consistent with multiple myeloma. FISH for multiple myeloma came back positive for 4p-, +5 , 11q+, -13, 14q-, 16q- and 17cen+. His level for today is pending. His lambda free light chain dropped from 245 and currently 3.11. . His PET scan did not show any activity in his bones or bone marrow. Continue too see patient again in a month with CBC, chem panel, LDH, uric acid and myeloma profile. will continue Zometa monthly for a total of two years. 1a. Pain. patient is s/p post surgery, he is on vicodin, diclofenac topical, and valium at night, with f/u with surgeon this coming Wednesday. 2. History of Bladder outlet obstruction. s/p leg bag removed 12/20/2017 this am at home health. patient producing urine, informs me he urinated three times already within the last five hours. 3. Right sciatic pain and right hip pain. MRI of the lumbar spine showed degenerative disease. on 12/06/17 s/p L2 to L5 laminectomy with L4-L5 posterolateral instrumented fusion performed Dr. Narayan Carcamo. 4. Constipation. Under control with milk of magnesia as needed for constipation. 5. Chronic obstructive pulmonary disease. O2 dependent on home oxygen. PLAN 1. Patient to receive Zometa as scheduled.Revlimid 10 mg daily. 2. Blood Glucose FSx1 Now. 103 3. Apply Diclofenac topical 1% to neck and shoulder, patient reports pain 10/ 10. educated how to apply the topical cream. 4. Please return and cancel Morphine Ivx1, per previous orders. 5. Patient to return 01/20/2018 with CBC, chem panel, LDH, uric acid and myeloma profile. 6. Continue Zometa monthly for a total of two years,per original MD orders. 7. Patient to contact us for any new concern or complaints. 8. Pain management education provided to patients . 9. Patient has upcoming f/u appointment with Urology Dr. Coelho, and PCP. CHRONIC Hypercholesterolemia. 2. Emphysema. 3. Tobacco abuse. 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 5. Tinnitus. 6. Histor of fractured femur. TIME SPENT: 45 minutes 40> minutes includes but not limited to discussion, counselling and co-ordination~ of care. Discussion with other health care providers, record review, review of lab work, diagnostic tests. Plan discussed extensively with patient, and significant other All the questions answered today. Thank you for the opportunity to be involved in the care of Mr. Alexander Nixon. Billing Level: Return visit 5 MIRTA QUINTANILLA, ONC Dec 20, 2017 13:27
[2017-12-26 12:07] VITALS: Wt 75.3 kg
[2018-01-06 16:16] VITALS: BP 107/65
--- NOTE | 2018-01-06 20:09 | ONCOLOGY FOLLOW UP NOTE ---
EVENT DATE: January 06, 2018 DIAGNOSES 1. Multiple myeloma. 2. Normochromic, normocytic anemia. 3. Hypercholesterolemia. 4. Chronic obstructive pulmonary disease. CHIEF COMPLAINT Patient is here today for followup of his multiple myeloma on maintenance Revlimid therapy. ONCOLOGY HISTORY The patient is a 65-year-old male who had history of emphysema and hypercholesterolemia. He had a normal CBC in July 2014. The patient was found lately to have anemia. His blood count on April 15, 2016 showed white count 7.1, hemoglobin 10.9, hematocrit 33.3%, platelets 272,000 and MCV normal at 90. His serum creatinine was 1.71 at that time and his glomerular filtration rate was 39 mL/min. Soluble transferrin receptor assay was normal at 4.3. Serum iron was 62. TIBC was 261. Iron saturation 23.8. Ferritin was 139. So, all his iron studies were within the normal range. EPO level was mildly elevated at 47; red cell folate was normal at 1252; serum folate was normal at more than 22. B12 was 360. Methylmalonic acid assay was normal at 0.25. Haptoglobin was high at 287. Repeat CBC showed hemoglobin 11.2, hematocrit 33, platelets 246,000, white count 7.3. Serum protein electrophoresis showed monoclonal protein of 1.95, but unfortunately no immunofixation was done. Bone marrow aspiration biopsy done on June 25, 2016 came back positive for lambda restricted plasmocytosis compatible with plasma cell myeloma with 20 to 40% of the core bone marrow biopsy positive for plasma cells. FISH for myeloma came back positive for 4p-, +5, 11q+, -13, 14q-, 16q-, and 17 adrian+. Skeletal bone survey done on June 25, 2016 did reveal multiple lucencies in the greater trochanter of the left hip and a void lucency seen on the lateral view of the skull in the frontal region. The patient started treatment with CyBorD chemotherapy on July 23, 2016. Patient finished his chemotherapy with CyBorD on June 17, 2017, and he started maintenance Revlimid therapy June 2017. HISTORY OF PRESENT ILLNESS Patient is here today for followup of his multiple myeloma on maintenance Revlimid therapy. He developed renal insufficiency recently after surgery for his back. Patient is going to see a english composition instructor. He is complaining of constipation on milk of magnesia sometimes for that. His back pain is much better after his surgery. PAST MEDICAL HISTORY 1. Hypercholesterolemia. 2. Emphysema. 3. Tobacco abuse. 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 5. Tinnitus. 6. Histor of fractured femur. PAST SURGICAL HISTORY 1. Bilateral cataract surgery 2002. 2. In 2014, foreign body removed from the foot. 3. Double hernia repair in 2001. 4. Fracture repair of the femur in 1956. 5. In 2004, he had fracture of the right arm. FAMILY HISTORY Negative for cancer or blood diseases. SOCIAL HISTORY The patient is with four children, three living. 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 He smokes about one pack a day for sixty years. He seldom drinks, once or twice per year. He denies any abuse of illicit drugs. CURRENT MEDICATIONS 1. Lovastatin 20 mg daily. 2. Baby aspirin 81 mg daily. 3. Revlimid 10 mg daily. ALLERGIES No known drug allergies. REVIEW OF SYSTEMS CONSTITUTIONAL: No appetite or weight change. No fever, chills or sweating. No recent infection. HEENT: Ears: No tinnitus or hearing problem. Nose: No nasal discharge or epistaxis. Throat: No sore throat or mouth ulcers. Eyes: No diplopia or visual changes. RESPIRATORY: Patient has cough with expectoration of thick phlegm. CARDIOVASCULAR: No chest pain, orthopnea, or paroxysmal nocturnal dyspnea (PND) . No edema. No palpitations. GASTROINTESTINAL: He has constipation. GENITOURINARY: He has a weak stream. No hematuria or dysuria. MUSCULOSKELETAL: He has pain in the thighs, especially on standing up. NEUROLOGICAL: Patient has numbness in the hands and feet. HEMATOLOGIC/LYMPHATIC: He is weak and fatigued. No enlarged lymph nodes. SKIN: No skin rash or lumps. PSYCHIATRIC: No anxiety or depression. PHYSICAL EXAMINATION GENERAL: Looks stable. Well-developed, well-nourished, and in no acute distress. VITAL SIGNS: Blood pressure 86/66, pulse 56 per minute, respirations 16 per minute, temperature 98.6, pulse ox 97% on room air. HEENT: Head: Atraumatic. No sinus tenderness to palpation. Eyes: No icterus or conjunctivitis. Mouth and throat: No oral thrush or mucositis. NECK: Supple. No cervical or supraclavicular lymphadenopathy. LUNGS: Clear to auscultation and percussion bilaterally. HEART: Regular rate and rhythm. No gallops, murmurs, clicks or rubs. ABDOMEN: Soft and lax. No tenderness. No hepatosplenomegaly. No masses. EXTREMITIES: There is minimal ankle edema. LYMPHATICS: No peripheral lymphadenopathy. NEUROLOGICAL: Conscious, alert and oriented times three. No focal motor or sensory deficits. PSYCHIATRIC: Mood and affect appear normal. SKIN: No skin rash, bruise or purpuric eruption. DIAGNOSTIC DATA White count 3.7, hemoglobin 13.2, hematocrit 37.2, platelets 102,000. Chem panel totally normal, except uric acid 2.9, creatinine 1.5 and AST 37. Beta-2 microglobulin is 3, kappa free light chain is 2.94, lambda free light chain is 3.11, kappa to lambda free light chain ratio is 0.95. IgG level was 615, IgA is 101, IgM 25, serum protein immunoelectrophoresis showed monoclonal band of IgG lambda 0.36 g/dL. PET CT scan done on November 17, 2017 did not show any evidence of abnormal bone marrow hypermetabolism. There was mild hypermetabolism of mediastinal and hilar lymph nodes could be due to reactive inflammation. ASSESSMENT 1. Multiple myeloma with IgG lambda monoclonal protein. Initial level was 1.9 g/dL. Beta-2 microglobulin was 4.7. [place] free light chain was normal, while lambda free light chain was high at 245. Skeletal bone survey showed multiple lucencies in the greater trochanter of the hip and the skull. Bone marrow aspiration biopsy June 25, 2016 revealed 20% to 40% lambda restricted plasmacytosis consistent with multiple myeloma. FISH for multiple myeloma came back positive for 4p-, +5, 11q+, -13, 14q-, 16q- and 17cen+. Patient received chemotherapy with CyBorD on July 23, 2016, and he completed 12 courses June 17, 2017. His IgG lambda monoclonal protein dropped from 1.9, and currently 0.36 g/dL, which is stable. His level for today is pending. His lambda free light chain dropped from 245 and currently 3.11. I am planning to continue Revlimid 10 mg daily. His PET scan did not show any activity in his bones or bone marrow. 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 Narayan Carcamo, and I will fax the results of the PET scan to him. I will see the patient again in a month with CBC, chem panel, LDH, uric acid and myeloma profile. I will continue Zometa monthly for a total of two years. 2. Right sciatic pain and right hip pain. MRI of the lumbar spine showed degenerative disease. Patient is going to have a surgical procedure by Dr. Narayan Carcamo soon. 3. Constipation. Under control with milk of magnesia as needed for constipation. 4. Chronic obstructive pulmonary disease on home oxygen. PLAN 1. Revlimid 10 mg daily. 2. Milk of magnesia 30 mL p.r.n. for constipation. 3. Patient to return in one month with CBC, chem panel, LDH, uric acid and myeloma profile. 4. Continue Zometa monthly for a total of two years. 5. Patient to contact us for any new concern or complaints. [facility]
[2018-01-13 09:10] VITALS: BP 108/68
[2018-02-01 13:16] VITALS: BP 99/56
[2018-02-01 13:20] LABS: PLATELET COUNT, AUTOMATED 105 K/uL (150-450)
[2018-02-10 09:57] VITALS: BP 116/70
--- NOTE | 2018-02-10 12:47 | EL-TARABILY ONCOLOGY NOTE ---
EVENT DATE: February 10, 2018 DIAGNOSES 1. Multiple myeloma. 2. Normochromic, normocytic anemia. 3. Hypercholesterolemia. 4. Chronic obstructive pulmonary disease. CHIEF COMPLAINT Patient is here today for followup of his multiple myeloma on maintenance Revlimid therapy. ONCOLOGY HISTORY The patient is a 77-year-old male who had history of emphysema and hypercholesterolemia. He had a normal CBC in July 2014. The patient was found lately to have anemia. His blood count on April 15, 2016 showed white count 7.1, hemoglobin 10.9, hematocrit 33.3%, platelets 272,000 and MCV normal at 90. His serum creatinine was 1.71 at that time and his glomerular filtration rate was 39 mL/min. Soluble transferrin receptor assay was normal at 4.3. Serum iron was 62. TIBC was 261. Iron saturation 23.8. Ferritin was 139. So, all his iron studies were within the normal range. EPO level was mildly elevated at 47; red cell folate was normal at 1252; serum folate was normal at more than 22. B12 was 360. Methylmalonic acid assay was normal at 0.25. Haptoglobin was high at 287. Repeat CBC showed hemoglobin 11.2, hematocrit 33, platelets 246,000, white count 7.3. Serum protein electrophoresis showed monoclonal protein of 1.95, but unfortunately no immunofixation was done. Bone marrow aspiration biopsy done on June 25, 2016 came back positive for lambda restricted plasmocytosis compatible with plasma cell myeloma with 20 to 40% of the core bone marrow biopsy positive for plasma cells. FISH for myeloma came back positive for 4p-, +5, 11q+, -13, 14q-, 16q-, and 17 adrian+. Skeletal bone survey done on June 25, 2016 did reveal multiple lucencies in the greater trochanter of the left hip and a void lucency seen on the lateral view of the skull in the frontal region. The patient started treatment with CyBorD chemotherapy on July 23, 2016. Patient finished his chemotherapy with CyBorD on June 17, 2017, and he started maintenance Revlimid therapy June 2017. HISTORY OF PRESENT ILLNESS Patient is here today for followup of his multiple myeloma on maintenance Revlimid therapy. He is doing fine currently and he is totally asymptomatic today. PAST MEDICAL HISTORY 1. Hypercholesterolemia. 2. Emphysema. 3. Tobacco abuse. 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 5. Tinnitus. 6. Histor of fractured femur. PAST SURGICAL HISTORY 1. Bilateral cataract surgery 2002. 2. In 2014, foreign body removed from the foot. 3. Double hernia repair in 2001. 4. Fracture repair of the femur in 1956. 5. In 2004, he had fracture of the right arm. FAMILY HISTORY Negative for cancer or blood diseases. SOCIAL HISTORY The patient is with four children, three living. 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 He smokes about one pack a day for sixty years. He seldom drinks, once or twice per year. He denies any abuse of illicit drugs. CURRENT MEDICATIONS 1. Lovastatin 20 mg daily. 2. Baby aspirin 81 mg daily. 3. Revlimid 10 mg daily. ALLERGIES No known drug allergies. REVIEW OF SYSTEMS CONSTITUTIONAL: No appetite or weight change. No fever, chills or sweating. No recent infection. HEENT: Ears: No tinnitus or hearing problem. Nose: No nasal discharge or epistaxis. Throat: No sore throat or mouth ulcers. Eyes: No diplopia or visual changes. RESPIRATORY: Patient has cough with expectoration of thick phlegm. CARDIOVASCULAR: No chest pain, orthopnea, or paroxysmal nocturnal dyspnea (PND). No edema. No palpitations. GASTROINTESTINAL: He has constipation. GENITOURINARY: He has a weak stream. No hematuria or dysuria. MUSCULOSKELETAL: He has pain in the thighs, especially on standing up. NEUROLOGICAL: Patient has numbness in the hands and feet. HEMATOLOGIC/LYMPHATIC: He is weak and fatigued. No enlarged lymph nodes. SKIN: No skin rash or lumps. PSYCHIATRIC: No anxiety or depression. PHYSICAL EXAMINATION GENERAL: Looks stable. Well-developed, well-nourished, and in no acute distress. VITAL SIGNS: Blood pressure 116/70, pulse 68 per minute, respirations 16 per minute, temperature 97.7, pulse ox 96% on oxygen. HEENT: Head: Atraumatic. No sinus tenderness to palpation. Eyes: No icterus or conjunctivitis. Mouth and throat: No oral thrush or mucositis. NECK: Supple. No cervical or supraclavicular lymphadenopathy. LUNGS: Clear to auscultation and percussion bilaterally. HEART: Regular rate and rhythm. No gallops, murmurs, clicks or rubs. ABDOMEN: Soft and lax. No tenderness. No hepatosplenomegaly. No masses. EXTREMITIES: There is minimal ankle edema. LYMPHATICS: No peripheral lymphadenopathy. NEUROLOGICAL: Conscious, alert and oriented times three. No focal motor or sensory deficits. PSYCHIATRIC: Mood and affect appear normal. SKIN: No skin rash, bruise or purpuric eruption. DIAGNOSTIC DATA CBC showed white count 3.3, hemoglobin 13.4, hematocrit 39.4, platelets 105,000. Immunoglobulin G is low at 638, immunoglobulin A is low at 31 and immunoglobulin M is low at 26. Serum protein electrophoresis shows a faint band in the IgG lambda, suggestive of a specific immune response or early monoclonal protein. [place] free light chain is 2.24, which is a little bit high, and lambda free light chain is normal at 3.32 with kappa free lambda free light chain ratio at 0.97. Beta-2 microglobulin is slightly elevated at 3.5. Chem panel is normal except creatinine of 1.4, BUN of 24 and blood sugar 114. Other parameters are normal. ASSESSMENT 1. Multiple myeloma with IgG lambda monoclonal protein. Initial level was 1.9 g/dL. Beta-2 microglobulin was 4.7. [place] free light chain was normal, while lambda free light chain was high at 245. Skeletal bone survey showed multiple lucencies in the greater trochanter of the hip and the skull. Bone marrow aspiration biopsy June 25, 2016 revealed 20% to 40% lambda restricted plasmacytosis consistent with multiple myeloma. FISH for multiple myeloma came back positive for 4p-, +5, 11q+, -13, 14q-, 16q- and 17cen+. Patient received chemotherapy with CyBorD on July 23, 2016, and he completed 12 courses June 17, 2017. His IgG lambda monoclonal protein dropped from 1.9, and currently he has a faint band. The patient has responded very well to his maintenance Revlimid therapy. The lambda free light chain dropped from 245 and currently it is 2.32, within the normal range. I am planning to continue maintenance Revlimid therapy at 10 mg daily. He had a PET scan recently, which did not show any activity in the bones or bone marrow. He had a surgical procedure on the spine for degenerative disease. I am planning to see the patient in a month from now with CBC, chem panel, LDH, uric acid and myeloma profile. I will continue Zometa monthly for a total of two years and I believe this will end in July 2018. 2. Chronic obstructive pulmonary disease, on home oxygen. PLAN 1. Revlimid 10 mg daily. 2. Milk of magnesia 30 mL p.r.n. for constipation. 4. Continue Zometa for a total of two years, which will end in July 2018. 5. Patient to return in one month with CBC, chem panel, LDL, uric acid and myeloma profile. 6. Patient to contact us for any new concern or complaints. JUDYD
[~2018-03-10 11:05] MED LIST changes: +DENOSUMAB 120 MG/1.7 ML VIAL SUBQ ONE; +DEXAMETHASONE SOD PHOS 10MG/ML ONE; +DEXTROSE 5%(*) 100 ML BAG 100 ML IVPB PRN; +GENTAMICIN 80 MG/2 ML VIAL ONE; +LIDOCAINE MPF 1% 5 ML VIAL ONE; +LIDOCAINE/SOD BICARB 8.4% SYR ID PRN; +MORPHINE 2 MG/ML SYR IVP ONE; +NS(*) 0.9% 100 ML BAG 100 ML IVPB PRN; +ONDANSETRON 4 MG/2 ML VIAL ONE; +PHENYLEPHRINE 10 MG/1 ML VIAL ONE; +PROPOFOL EMUL(*) 10MG/ML 20 ML 20 ML ONE; +ZOLEDRONIC ACID 4 MG/5 ML VIAL 3.3 MG in NS(*) 0.9% 100 ML BAG 100 ML IVPB ONE; +fentaNYL CITR 100 MCG/2 ML AMP ONE
[2018-03-10] MEDS ORDERED: DENOSUMAB 120 MG/1.7 ML VIAL SUBQ ONE (11:15)
[2018-03-10 11:20] VITALS: BP 85/65
[2018-03-10] MEDS ORDERED: FURO40TA35 PO (11:25)
--- NOTE | 2018-03-10 20:57 | ONCOLOGY FOLLOW UP NOTE ---
EVENT DATE: March 10, 2018 DIAGNOSES 1. Multiple myeloma. 2. Normochromic, normocytic anemia. 3. Hypercholesterolemia. 4. Chronic obstructive pulmonary disease. CHIEF COMPLAINT Patient is here today for followup of his multiple myeloma on maintenance Revlimid therapy. ONCOLOGY HISTORY The patient is a 77-year-old male who had history of emphysema and hypercholesterolemia. He had a normal CBC in July 2014. The patient was found lately to have anemia. His blood count on April 15, 2016, showed white count 7.1, hemoglobin 10.9, hematocrit 33.3%, platelets 272,000 and MCV normal at 90. His serum creatinine was 1.71 at that time, and his glomerular filtration rate was 39 mL/min. Soluble transferrin receptor assay was normal at 4.3. Serum iron was 62. TIBC was 261. Iron saturation 23.8. Ferritin was 139. So, all his iron studies were within the normal range. EPO level was mildly elevated at 47, red cell folate was normal at 1252, serum folate was normal at more than 22. B12 was 360. Methylmalonic acid assay was normal at 0.25. Haptoglobin was high at 287. Repeat CBC showed hemoglobin 11.2, hematocrit 33, platelets 246,000, white count 7.3. Serum protein electrophoresis showed monoclonal protein of 1.95, but unfortunately no immunofixation was done. Bone marrow aspiration biopsy done on June 25, 2016, came back positive for lambda restricted plasmocytosis compatible with plasma cell myeloma with 20% to 40% of the core bone marrow biopsy positive for plasma cells. FISH for myeloma came back positive for 4p-, +5, 11q+, -13, 14q-, 16q-, and 17 adrian+. Skeletal bone survey done on June 25, 2016, did reveal multiple lucencies in the greater trochanter of the left hip and a void lucency seen on the lateral view of the skull in the frontal region. The patient started treatment with CyBorD chemotherapy on July 23, 2016. Patient finished his chemotherapy with CyBorD on June 17, 2017, and he started maintenance Revlimid therapy June 2017. HISTORY OF PRESENT ILLNESS Patient is here today for followup of his multiple myeloma on maintenance Revlimid therapy. He is doing fine currently except for numbness in his fingers sometimes. PAST MEDICAL HISTORY 1. Hypercholesterolemia. 2. Emphysema. 3. Tobacco abuse. 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 5. Tinnitus. 6. History of fractured femur. PAST SURGICAL HISTORY 1. Bilateral cataract surgery 2002. 2. In 2014, foreign body removed from the foot. 3. Double hernia repair in 2001. 4. Fracture repair of the femur in 1956. 5. In 2004, he had fracture of the right arm. FAMILY HISTORY Negative for cancer or blood diseases. SOCIAL HISTORY The patient is with four children, three living. 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 He smokes about one pack a day for 60 years. He seldom drinks, once or twice per year. He denies any abuse of illicit drugs. CURRENT MEDICATIONS 1. Lovastatin 20 mg daily. 2. Baby aspirin 81 mg daily. 3. Revlimid 10 mg daily. ALLERGIES No known drug allergies. REVIEW OF SYSTEMS CONSTITUTIONAL: No appetite or weight change. No fever, chills, or sweating. No recent infection. HEENT: Ears: No tinnitus or hearing problem. Nose: No nasal discharge or epistaxis. Throat: No sore throat or mouth ulcers. Eyes: No diplopia or visual changes. RESPIRATORY: Patient has cough with expectoration of thick phlegm. CARDIOVASCULAR: No chest pain, orthopnea, or paroxysmal nocturnal dyspnea (PND). No edema. No palpitations. GASTROINTESTINAL: He has constipation. GENITOURINARY: He has a weak stream. No hematuria or dysuria. MUSCULOSKELETAL: He has pain in the thighs, especially on standing up. NEUROLOGICAL: He has some numbness in his fingers. HEMATOLOGIC/LYMPHATIC: He is weak and fatigued. No enlarged lymph nodes. SKIN: No skin rash or lumps. PSYCHIATRIC: No anxiety or depression. PHYSICAL EXAMINATION GENERAL: Looks stable. Well developed, well nourished, and in no acute distress. VITAL SIGNS: Blood pressure 85/65, pulse 65 per minute, respirations 18 per minute, temperature 98, pulse ox 94% on room air. HEENT: Head: Atraumatic. No sinus tenderness to palpation. Eyes: No icterus or conjunctivitis. Mouth and throat: No oral thrush or mucositis. NECK: Supple. No cervical or supraclavicular lymphadenopathy. LUNGS: Clear to auscultation and percussion bilaterally. HEART: Regular rate and rhythm. No gallops, murmurs, clicks, or rubs. ABDOMEN: Soft and lax. No tenderness. No hepatosplenomegaly. No masses. EXTREMITIES: There is minimal ankle edema. LYMPHATICS: No peripheral lymphadenopathy. NEUROLOGICAL: Conscious, alert, and oriented times three. No focal motor or sensory deficits. PSYCHIATRIC: Mood and affect appear normal. SKIN: No skin rash, bruise, or purpuric eruption. DIAGNOSTIC DATA CBC showed white count 2.3, hemoglobin 13, hematocrit 38.8, platelets 91,000. ANC is 0.9. Chem panel is totally normal except BUN 16, creatinine 1.3, blood sugar 101. 24-hour urine protein electrophoresis shows kappa free light chain was high at 25.8, and lambda free light chain was high at 4.85. The kappa to lambda free light chain ratio was normal at 5.32. Beta-2 microglobulin is 2.9. The serum protein immunoelectrophoresis showed a faint band in IgG lambda, suggestive of a specific immune response or early monoclonal protein. IgG is 704, IgA is 43, and IgM is 28. All are low. ASSESSMENT 1. Multiple myeloma with IgG lambda monoclonal protein. Initial level was 1.9 g/dL. Beta-2 microglobulin was 4.7. [place] free light chain was normal, while lambda free light chain was high at 245. Skeletal bone survey showed multiple lucencies in the greater trochanter of the hip and the skull. Bone marrow aspiration biopsy June 25, 2016, revealed 20% to 40% lambda restricted plasmacytosis consistent with multiple myeloma. FISH for multiple myeloma came back positive for 4p-, +5, 11q+, -13, 14q-, and 17cen+. Patient received chemotherapy with CyBorD on July 23, 2016, and he completed 12 courses June 17, 2017. His IgG lambda monoclonal protein dropped from 1.9, and currently there is only a faint band in IgG lambda. His lambda free light chain dropped from 245. His last lambda free light chain was 2.32, within the normal range. I am planning to continue Revlimid therapy at 10 mg daily. I will monitor his ANC as it is low currently at 0.9. If his ANC drops further in the future, I am planning to decrease the dose of Revlimid to 7.5 mg instead of 10. He had a PET scan recently which did not show any activity in the bones or bone marrow. I am planning to see him again in a month with CBC, chemistry panel, LDH, uric acid, and myeloma profile. I will continue Xgeva 120 mg subcutaneously every month, and his last dose will be July 2018. 2. Leukopenia/neutropenia due to Revlimid therapy. Consider decreasing the dose of Revlimid to 7.5 mg daily if he continues to have deterioration of his ANC. 3. Chronic obstructive pulmonary disease, on home oxygen. PLAN 1. Revlimid 10 mg daily. 2. Patient to return in one month with CBC, chem panel, LDH, uric acid, and myeloma profile. 3. Continue Xgeva 120 mg subcutaneously every month, to end of July 2018. 4. Patient to contact us for any new concern or complaints. MTDD
== END 2018-03-17 ==
LOC: ONC 11:05
PROVIDERS: ATTEND Internal Medicine Hematology
DX: C90.02 Multiple myeloma in relapse (principal); D64.9 Anemia, unspecified; J44.9 Chronic obstructive pulmonary disease, unspecified; Z92.21 Personal history of antineoplastic chemotherapy; R53.1 Weakness; R53.83 Other fatigue; Z72.0 Tobacco use; E78.01 Familial hypercholesterolemia; H93.19 Tinnitus, unspecified ear; Q04.0 Congenital malformations of corpus callosum; E78.00 Pure hypercholesterolemia, unspecified
CPT/HCPCS: 36415; 36416; 36591; 82232; 82948; 83615; 83883; 84550; 85025; 86334; 96365; 96372; G0463; J0897; J2270; J3489; J7050; 82040; 82247; 82310; 82374; 82435; 82565; 82947; 84075; 84132; 84155; 84295; 84450; 84460; 84520; 99212; J1100; J1580; J2001; J2370; J2405; J2704; J3010

== ENCOUNTER → 2018-03-14 | Outpatient (CLI) | payer MEDICARE, OTHER ==
[2017-12-26 12:07] VITALS: BMI 24.8
[~2018-03-14] MED LIST changes: -DENOSUMAB 120 MG/1.7 ML VIAL SUBQ ONE; -DEXAMETHASONE SOD PHOS 10MG/ML ONE; -DEXTROSE 5%(*) 100 ML BAG 100 ML IVPB PRN; +FURO40TA35 PO; -GENTAMICIN 80 MG/2 ML VIAL ONE; -LIDOCAINE MPF 1% 5 ML VIAL ONE; -LIDOCAINE/SOD BICARB 8.4% SYR ID PRN; -MORPHINE 2 MG/ML SYR IVP ONE; -NS(*) 0.9% 100 ML BAG 100 ML IVPB PRN; -ONDANSETRON 4 MG/2 ML VIAL ONE; -PHENYLEPHRINE 10 MG/1 ML VIAL ONE; -PROPOFOL EMUL(*) 10MG/ML 20 ML 20 ML ONE; -ZOLEDRONIC ACID 4 MG/5 ML VIAL 3.3 MG in NS(*) 0.9% 100 ML BAG 100 ML IVPB ONE; -fentaNYL CITR 100 MCG/2 ML AMP ONE
== END ==
LOC: LAB 14:10
PROVIDERS: ATTEND Internal Medicine Nephrology
DX: Z13.9 Encounter for screening, unspecified (principal); N17.9 Acute kidney failure, unspecified; N18.3 Chronic kidney disease, stage 3 (moderate)
CPT/HCPCS: 36415; 82040; 82310; 82374; 82435; 82565; 82947; 84100; 84132; 84295; 84520

== ENCOUNTER → 2018-03-30 | Outpatient (CLI) | payer MEDICARE, OTHER ==
[2017-12-26 12:07] VITALS: BMI 24.8
[2018-03-30 09:50] VITALS: BP 104/62
== END ==
LOC: SPU 08:33
PROVIDERS: ATTEND Internal Medicine
DX: R73.03 Prediabetes (principal); E87.1 Hypo-osmolality and hyponatremia; E87.6 Hypokalemia; E78.00 Pure hypercholesterolemia, unspecified
CPT/HCPCS: 82465; 83036; 83718; 84478

== ENCOUNTER → 2018-04-05 | Outpatient (CLI) | payer MEDICARE, OTHER ==
[2017-12-26 12:07] VITALS: BMI 24.8
[~2018-04-05] MED LIST changes: +ZOLE4INF IV
== END ==
LOC: LAB 10:54
DX: R80.9 Proteinuria, unspecified (principal)
CPT/HCPCS: 36415; 84153

== ENCOUNTER → 2018-05-13 | Outpatient (CLI) | payer MEDICARE, OTHER ==
[2017-12-26 12:07] VITALS: BMI 24.8
== END ==
LOC: LAB 09:51
PROVIDERS: ATTEND Internal Medicine Nephrology
DX: Z13.9 Encounter for screening, unspecified (principal); N17.9 Acute kidney failure, unspecified; N18.3 Chronic kidney disease, stage 3 (moderate)
CPT/HCPCS: 36415; 82310; 82374; 82435; 82565; 82570; 82947; 83735; 84100; 84132; 84156; 84295; 84520

== ENCOUNTER → 2018-05-18 | Outpatient (CLI) | payer MEDICARE, OTHER ==
[2017-12-26 12:07] VITALS: BMI 24.8
[~2018-05-18] MED LIST changes: +TRAM-420 PO
[2018-05-18 10:28] LABS: PLATELET COUNT, AUTOMATED 108 K/uL (150-450)
== END ==
LOC: LAB 09:45
PROVIDERS: ATTEND Internal Medicine Nephrology
DX: Z13.9 Encounter for screening, unspecified (principal); N17.9 Acute kidney failure, unspecified
CPT/HCPCS: 36415; 85025

== ENCOUNTER 2018-05-19 12:49 | Emergency (ER) | payer MEDICARE, OTHER ==
[2017-12-26 12:07] VITALS: Wt 72.7 kg
[~2018-05-19 12:49] MED LIST changes: -TRAM-420 PO
--- NOTE | 2018-05-19 12:55 | ER Report ---
History and Physical Time Seen By MD: 12:55 HPI/ROS CHIEF COMPLAINT: Left lower quadrant abdominal pain, constipation HISTORY OF PRESENT ILLNESS: Patient is a 77-year-old male here with complaints of left lower quadrant abdominal pain, constipation since yesterday morning. Patient reports that he has been having intermittent episodes of left lower quadrant abdominal pain and has not passed bowel movement in approximately 2 days and has been having minimal flatus. Patient denies nausea or vomiting and has been taking Colace. 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 Patient is concerned that he had eaten tainted sausage which he believes precipitated his abdominal pain. Patient does have a h istory significant for multiple myeloma. Patient denies chest pain, shortness breath, headache, blurry vision, fevers, chills, melena, dysuria, hematuria. Patient is hemodynamically stable at time of evaluation. REVIEW OF SYSTEMS: Constitutional: No fever, no chills. Eyes: No discharge. ENT: No sore throat. Cardiovascular: No chest pain, no palpitations. Respiratory: No cough, no shortness of breath. Gastrointestinal: + LLQ abdominal pain, no vomiting or nausea, + constipation. Genitourinary: No hematuria. Musculoskeletal: No back pain. Skin: No rashes. Neurological: No headache. Allergies: Coded Allergies: pineapple (Verified Allergy, Intermediate, ITCHING , 05/19/18) Home Meds Active Scripts Tramadol Hcl (TRAMADOL HCL) 50 Mg Tablet, 50 MG PO Q6H PRN for PAIN, #12 TAB 0 Refills Prov:SERENA MCDOWELL DO 05/19/18 Lovastatin (LOVASTATIN) 20 Mg Tablet, 1 TAB PO QDAY, #90 TAB 4 Refills Prov:GRISEL REID MD 08/13/17 Pyridoxine Hcl (VITAMIN B-6) 100 Mg Tablet, 1 TAB PO BID, #60 TAB Prov:GRISEL REID MD 08/07/17 Triamcinolone Acetonide 0.1% Cr 15 Gm Tube (TRIAMCINOLONE ACETONIDE 0.1% CREAM) 15 Gm Cream..g., 1 YOLY TP BID PRN for Psoriasis, #1 TUBE 5 Refills Prov:GRISEL REID MD 03/18/17 Reported Medications Zoledronic Acid/Mannitol&Water (ZOMETA 4 MG/100 ML INJECTION) 4 Mg/100 Ml Infus..btl, MG IV monthly 04/12/18 Furosemide (LASIX) 40 Mg Tablet, 1 TAB PO DAILY, TAB 03/10/18 Magnesium Hydroxide (MILK OF MAGNESIA) 400 Mg/5 Ml Oral.susp, 5 ML PO DAILY PRN for constipation, BOTTLE 12/16/17 Tamsulosin Hcl (FLOMAX) 0.4 Mg Cap.er.24h, 1 CAP PO BID, #30 CAP 12/11/17 Lenalidomide (REVLIMID) 10 Mg Capsule, 1 CAP PO QDAY 06/17/17 Oxygen (OXYGEN) Inha, 1 L INH cont 10/22/16 Multivitamin (MULTI VITAMIN DAILY) 1 Each Tablet, 1 TAB PO DAILY 07/09/16 Aspirin (ASPIR 81) 81 Mg Tablet.dr, 1 TAB PO QDAY 07/09/16 Hx Smoking: Yes (1/2 - 1 PPD FOR 60 YRS, QUIT 2016) Smoking Status: Former Smoker Exposure to Second Hand Smoke?: Yes Hx Substance Use Disorder: No Hx Alcohol Use: Yes Constitutional Vital Sign - Last 24 Hours 05/19/18 05/19/18 05/19/18 05/19/18 12:50 12:50 13:01 13:30 Temp 98.0 Pulse 92 88 Resp 20 B/P (MAP) 119/69 119/69 (86) 115/71 (86) Pulse Ox 91 91 O2 Delivery Nasal Cannula O2 Flow Rate 2.0 05/19/18 05/19/18 05/19/18 05/19/18 14:00 14:30 14:35 14:50 Pulse 78 76 76 77 B/P (MAP) 108/59 (75) 105/65 (78) Pulse Ox 83 94 94 89 05/19/18 15:00 B/P (MAP) 102/65 (77) Intake and Output 05/19/18 05/19/18 05/20/18 15:00 23:00 07:00 Intake Total 500 ml Balance 500 ml Physical Exam General Appearance: The patient is alert, has no immediate need for airway protection and no signs of toxicity. Mild distress secondary to pain Eyes: Pupils equal and round no pallor or injection. ENT, Mouth: Mucous membranes are moist. Respiratory: There are no retractions, lungs are clear to auscultation. Cardiovascular: Regular rate and rhythm. Gastrointestinal: Abdomen is soft and + significantly tender on palpation of the left lower quadrant without rebound or guarding, no masses, bowel sounds normal. Neurological: No focal neuro deficits Skin: Warm and dry, no rashes. Musculoskeletal: Neck is supple non tender. Extremities are nontender, nonswollen and have full range of motion. DIFFERENTIAL DIAGNOSIS: After history and physical exam differential diagnosis was considered for abdominal pain including but not limited to appendicitis, cholecystitis, gastritis and urinary tract infection, constipation, food poisoning Medical Decision Making Data Points Result Diagram: 05/19/18 1310 05/19/18 1310 Laboratory Hematology Test 02/10/17 00:00 05/19/18 12:50 05/19/18 13:10 Neutrophils # 1.5 K/CUMM (2.0-8.5) Hematocrit 47.3 % (40-53) Hemoglobin 15.5 G/DL (13-18) Platelet Count 35.0 K/CUMM (130-420) White Blood Count 5.1 10^3/MM3 (3.5-10.5) Urine Color Yellow Urine Clarity Clear Urine pH 6.0 pH (4.8-9.5) Urine Specific [place] 1.006 Urine Protein Negative mg/dL (NEGATIVE) Urine Glucose (UA) 50 mg/dL (NEGATIVE) Urine Ketones Trace mg/dL (NEGATIVE) Urine Blood Small (NEGATIVE) Urine Nitrite Negative (NEGATIVE) Urine Bilirubin Negative (NEGATIVE) Urine Urobilinogen Negative mg/dL (0.2-1.9) Urine Leukocyte Esterase Negative (NEGATIVE) Urine RBC 1 /HPF (0-2/HPF) Urine WBC <1 /HPF (0-5/HPF) Urine Squamous Epithelial Cells None /LPF (</=FEW) Urine Bacteria Negative /HPF (NONE-FEW) Urine Mucus None /HPF (NONE-FEW) Red Blood Count 4.01 M/uL (4.00-5.60) Mean Corpuscular Volume 95.7 fL (80.0-96.0) Mean Corpuscular Hemoglobin 32.2 pg (26.0-33.0) Mean Corpuscular Hemoglobin Concent 33.6 g/dL (32.0-36.0) Red Cell Distribution Width 15.5 % (11.5-14.5) Mean Platelet Volume 8.5 fL (7.2-11.1) Neutrophils (%) (Auto) 67.9 % (39.4-72.5) Lymphocytes (%) (Auto) 14.1 % (17.6-49.6) Monocytes (%) (Auto) 17.2 % (4.1-12.4) Eosinophils (%) (Auto) 0.2 % (0.4-6.7) Basophils (%) (Auto) 0.6 % (0.3-1.4) Nucleated RBC Relative Count (auto) 0.0 /100WBC Neutrophils # (Auto) 2.6 K/uL (2.0-7.4) Lymphocytes # (Auto) 0.6 K/uL (1.3-3.6) Monocytes # (Auto) 0.7 K/uL (0.3-1.0) Eosinophils # (Auto) 0.0 K/uL (0.0-0.5) Basophils # (Auto) 0.0 K/uL (0.0-0.1) Nucleated RBC Absolute Count (auto) 0.00 K/uL Prothrombin Time 14.0 seconds (12.0-14.4) Prothromb Time International Ratio 1.08 Activated Partial Thromboplast Time 34 seconds (23-35) Sodium Level 134 mmol/L (137-145) Potassium Level 3.6 mmol/L (3.5-5.0) Chloride Level 99 mmol/L (98-107) Carbon Dioxide Level 21 mmol/L (22-30) Blood Urea Nitrogen 17 mg/dl (9-21) Creatinine 1.30 mg/dl (0.66-1.25) Glomerular Filtration Rate Calc 53.8 Random Glucose 114 mg/dl (75-110) Lactate 1.5 mmol/L (0.7-2.1) Calcium Level 7.9 mg/dl (8.4-10.2) Total Bilirubin 5.0 mg/dl (0.2-1.3) Aspartate Amino Transf (AST/SGOT) 43 U/L (0-35) Alanine Aminotransferase (ALT/SGPT) 81 U/L (0-56) Alkaline Phosphatase 155 U/L (0-126) Total Protein 6.5 g/dl (6.3-8.2) Albumin 3.8 g/dl (3.5-5.0) Lipase 63 U/L (23-300) Chemistry Test 02/10/17 00:00 05/19/18 12:50 05/19/18 13:10 Neutrophils # 1.5 K/CUMM (2.0-8.5) Hematocrit 47.3 % (40-53) 38.3 % (42.0-52.0) Hemoglobin 15.5 G/DL (13-18) 12.9 g/dL (14.0-18.0) Platelet Count 35.0 K/CUMM (130-420) 127 K/uL (150-450) White Blood Count 5.1 10^3/MM3 (3.5-10.5) 3.9 k/uL (4.5-11.0) Urine Color Yellow Urine Clarity Clear Urine pH 6.0 pH (4.8-9.5) Urine Specific [place] 1.006 Urine Protein Negative mg/dL (NEGATIVE) Urine Glucose (UA) 50 mg/dL (NEGATIVE) Urine Ketones Trace mg/dL (NEGATIVE) Urine Blood Small (NEGATIVE) Urine Nitrite Negative (NEGATIVE) Urine Bilirubin Negative (NEGATIVE) Urine Urobilinogen Negative mg/dL (0.2-1.9) Urine Leukocyte Esterase Negative (NEGATIVE) Urine RBC 1 /HPF (0-2/HPF) Urine WBC <1 /HPF (0-5/HPF) Urine Squamous Epithelial Cells None /LPF (</=FEW) Urine Bacteria Negative /HPF (NONE-FEW) Urine Mucus None /HPF (NONE-FEW) Red Blood Count 4.01 M/uL (4.00-5.60) Mean Corpuscular Volume 95.7 fL (80.0-96.0) Mean Corpuscular Hemoglobin 32.2 pg (26.0-33.0) Mean Corpuscular Hemoglobin Concent 33.6 g/dL (32.0-36.0) Red Cell Distribution Width 15.5 % (11.5-14.5) Mean Platelet Volume 8.5 fL (7.2-11.1) Neutrophils (%) (Auto) 67.9 % (39.4-72.5) Lymphocytes (%) (Auto) 14.1 % (17.6-49.6) Monocytes (%) (Auto) 17.2 % (4.1-12.4) Eosinophils (%) (Auto) 0.2 % (0.4-6.7) Basophils (%) (Auto) 0.6 % (0.3-1.4) Nucleated RBC Relative Count (auto) 0.0 /100WBC Neutrophils # (Auto) 2.6 K/uL (2.0-7.4) Lymphocytes # (Auto) 0.6 K/uL (1.3-3.6) Monocytes # (Auto) 0.7 K/uL (0.3-1.0) Eosinophils # (Auto) 0.0 K/uL (0.0-0.5) Basophils # (Auto) 0.0 K/uL (0.0-0.1) Nucleated RBC Absolute Count (auto) 0.00 K/uL Prothrombin Time 14.0 seconds (12.0-14.4) Prothromb Time International Ratio 1.08 Activated Partial Thromboplast Time 34 seconds (23-35) Glomerular Filtration Rate Calc 53.8 Lactate 1.5 mmol/L (0.7-2.1) Calcium Level 7.9 mg/dl (8.4-10.2) Total Bilirubin 5.0 mg/dl (0.2-1.3) Aspartate Amino Transf (AST/SGOT) 43 U/L (0-35) Alanine Aminotransferase (ALT/SGPT) 81 U/L (0-56) Alkaline Phosphatase 155 U/L (0-126) Total Protein 6.5 g/dl (6.3-8.2) Albumin 3.8 g/dl (3.5-5.0) Lipase 63 U/L (23-300) Coagulation Test 05/19/18 13:10 Prothrombin Time 14.0 seconds Prothromb Time International Ratio 1.08 Activated Partial Thromboplast Time 34 seconds Urinalysis Test 05/19/18 12:50 Urine Color Yellow Urine Clarity Clear Urine pH 6.0 pH (4.8-9.5) Urine Specific [place] 1.006 Urine Protein Negative mg/dL (NEGATIVE) Urine Glucose (UA) 50 mg/dL (NEGATIVE) Urine Ketones Trace mg/dL (NEGATIVE) Urine Blood Small (NEGATIVE) Urine Nitrite Negative (NEGATIVE) Urine Bilirubin Negative (NEGATIVE) Urine Urobilinogen Negative mg/dL (0.2-1.9) Urine Leukocyte Esterase Negative (NEGATIVE) Urine RBC 1 /HPF (0-2/HPF) Urine WBC <1 /HPF (0-5/HPF) Urine Squamous Epithelial Cells None /LPF (</=FEW) Urine Bacteria Negative /HPF (NONE-FEW) Urine Mucus None /HPF (NONE-FEW) [place] [facility] [place] Mun[place] : 1940 Visit/Account:[id number] Date of Sevice: 05/19/2018 CT abdomen and pelvis without contrast Indication: Left-sided abdominal pain. Comparison: None Available. Technique: Axial CT images are obtained through the abdomen and pelvis. Reformatted coronal and sagittal images were reviewed. IV contrast was not administered. One of the following dose optimization techniques was utilized in the performance of this exam: automated exposure control; adjustment of the mA and/or kV according to the patient's size; or use of an iterative reconstruction technique. Specific details can be referenced in the facility's radiology CT exam operational policy. Findings: Lower lung blackmon: Small left pleural effusion with early consolidation. Right lower lobe does show atelectatic changes. Evaluation of the solid organs of the abdomen is limited without IV contrast. Liver: No focal parenchymal abnormality of the liver. Biliary: Gallbladder appears unremarkable as well as the intra and extra hepatic biliary system. Pancreas: No focal abnormality. Spleen: Normal appearance. Adrenal glands: Unremarkable. Kidneys / retroperitoneum: No evidence of nephrolithiasis or hydronephrosis. No focal normality. Bowel / peritoneum / mesenteries: There are couple diverticula in sigmoid colon without pericolonic inflammation. Colon shows no focal abnormality. The appendix is normal. Small bowel shows no focal abnormality or obstruction. Stomach is unremarkable with a small hiatal hernia. No free air, free fluid, fluid collections or areas of inflammation. Small right inguinal hernia containing fat. Lymph node assessment: No pathologic adenopathy identified. Pelvic structures: Appear unremarkable. Vessels: Mild atherosclerotic calcifications seen throughout a nonaneurysmal abdominal aorta and branches. Musculoskeletal / Body wall: No acute or aggressive osseous abnormality. Postsurgical change the lumbar spine without sequelae. Mild degenerative changes. Couple bone island seen in the bony pelvis. IMPRESSION: 1. No acute intra-abdominal abnormality identified. 2. Sigmoid diverticulosis without radiographic indication diverticulitis. 3. Small left pleural effusion with early consolidation which could be due to developing atelectasis or infiltrate. Right lower lobe shows some atelectasis. 4. Other chronic findings as above. ED Course/Re-evaluation ED Course Patient is a 77-year-old male here with complaints of left lower quadrant abdominal pain since yesterday morning after eating sausage which he believes was "tainted". Patient also reports not having passed a bowel movement for approximately 2 days and passing minimal flatus in spite of taking Colace. Due to the patient's significant tenderness on examination, decision was made to complete a CT scan of the abdomen and pelvis without contrast due to history of kidney disease. Patient was given IV hydration as well as fentanyl for analgesia. CT was unremarkable. Patient was given tramadol prescription for home analgesia. Patient was advised to follow up with PCP in the next 2 days and return promptly if he develops any worsening symptoms, fevers, nausea, vomiting, by mouth intolerance, blood in the stools or urine. Decision to Disposition Date: May 19, 2018 Decision to Disposition Time: 15:03 Depart Departure Latest Vital Signs Vital Signs Date Time Temp Pulse Resp B/P (MAP) Pulse Ox O2 Delivery O2 Flow Rate FiO2 05/19/18 15:00 102/65 (77) 05/19/18 14:50 77 89 05/19/18 12:50 2.0 05/19/18 12:50 98.0 20 Nasal Cannula Impression: Primary Impression: Abdominal pain Additional Impression: Constipation Condition: Improved Disposition: HOME OR SELF-CARE Referrals: GRISEL REID MD (PCP) New Scripts Tramadol Hcl (TRAMADOL HCL) 50 Mg Tablet 50 MG PO Q6H PRN for PAIN, #12 TAB 0 Refills Prov: SERENA MCDOWELL DO 05/19/18 Patient Instructions: Abdominal Pain (ED), Constipation (ED) Additional Instructions: Please drink plenty of water. You may take 1 tablet of tramadol every 6-8 hours as needed for pain control. You may continue to take Colace as needed for constipation. You may take magnesium citrate once in order to relieve the cons tipation. Please return promptly if develop worsening abdominal pain, fevers, inability to pass bowel movements, inability to keep down food or fluids. Please follow-up with your family doctor in the next 2 days for reevaluation and further care. Problem Qualifiers SERENA MCDOWELL DO May 19, 2018 12:55
[2018-05-19] MEDS ORDERED: NS(*) 0.9% 500 ML BAG 500 ML IV ONE (13:10)
[2018-05-19] MEDS ORDERED: fentaNYL CITR 100 MCG/2 ML AMP IVP ONE (13:10)
[2018-05-19 13:25] LABS: PLATELET COUNT, AUTOMATED 127 K/uL (150-450)
[2018-05-19 13:35] LABS: INR 1.08
--- NOTE | 2018-05-19 14:51 | RADIOLOGY IMAGING REPORT ---
FACILITY: [facility] PATIENT NAME: Williams Munoz : 1940 MR: [id number] V: [id number] EXAM DATE: ORDERING PHYSICIAN: SERENA MCDOWELL TECHNOLOGIST: Location: [facility] - [place] Patient: Williams Munoz : 1940 Visit/Account:[id number] Date of Sevice: 05/19/2018 CT abdomen and pelvis without contrast Indication: Left-sided abdominal pain. Comparison: None Available. Technique: Axial CT images are obtained through the abdomen and pelvis. Reformatted coronal and sagit giancarlo images were reviewed. IV contrast was not administered. One of the following dose optimization techniques was utilized in the performance of this exam: auto mated exposure control; adjustment of the mA and/or kV according to the patient's size; or use of an iterative reconstruction technique. Specific details can be referenced in the facility's radiology C T exam operational policy. Findings: Lower lung blackmon: Small left pleural effusion with early consolidation. Right lower lobe does show a telectatic changes. Evaluation of the solid organs of the abdomen is limited without IV contrast. Liver: No focal parenchymal abnormality of the liver. Biliary: Gallbladder appears unremarkable as well as the intra and extra hepatic biliary system. Pancreas: No focal abnormality. Spleen: Normal appearance. Adrenal glands: Unremarkable. Kidneys / retroperitoneum: No evidence of nephrolithiasis or hydronephrosis. No focal normality. Bowel / peritoneum / mesenteries: There are couple diverticula in sigmoid colon without pericolonic i nflammation. Colon shows no focal abnormality. The appendix is normal. Small bowel shows no focal abn ormality or obstruction. Stomach is unremarkable with a small hiatal hernia. No free air, free fluid, fluid collections or areas of inflammation. Small right inguinal hernia cont aining fat. Lymph node assessment: No pathologic adenopathy identified. Pelvic structures: Appear unremarkable. Vessels: Mild atherosclerotic calcifications seen throughout a nonaneurysmal abdominal aorta and bran ches. Musculoskeletal / Body wall: No acute or aggressive osseous abnormality. Postsurgical change the lumb ar spine without sequelae. Mild degenerative changes. Couple bone island seen in the bony pelvis. IMPRESSION: 1. No acute intra-abdominal abnormality identified. 2. Sigmoid diverticulosis without radiographic indication diverticulitis. 3. Small left pleural effusion with early consolidation which could be due to developing atelectasis or infiltrate. Right lower lobe shows some atelectasis. 4. Other chronic findings as above. Report Dictated By: Abdias Martin at 05/19/2018 2:39 PM Report E-Signed By: Abdias Martin at 05/19/2018 2:47 PM WSN:[id number]
[2018-05-19 15:00] VITALS: BP 102/65
[2018-05-19] MEDS ORDERED: TRAM-420 PO (15:00)
[2018-05-19] MEDS ORDERED: MAGNESIUM CITRATE 300 ML BTL PO ONE (15:00)
== END 2018-05-19 15:08 | disposition home or self-care (01) ==
LOC: ER 12:58
DX: R10.32 Left lower quadrant pain (principal); K59.00 Constipation, unspecified
CPT/HCPCS: 74176; 81001; 83605; 83690; 85025; 85610; 85730; 96374; 99284; A9270; J3010; J7040; 82040; 82247; 82310; 82374; 82435; 82565; 82947; 84075; 84132; 84155; 84295; 84450; 84460; 84520

== ENCOUNTER 2018-06-23 10:07 | Outpatient (RCR) | payer MEDICARE, OTHER ==
[2017-12-26 12:07] VITALS: Wt 75.7 kg
[2018-03-30 10:39] LABS: PLATELET COUNT, AUTOMATED 123 K/uL (150-450)
[2018-04-08 13:58] VITALS: BP 121/73
--- NOTE | 2018-04-09 07:58 | EL-TARABILY ONCOLOGY NOTE ---
EVENT DATE: April 08, 2018 DIAGNOSES 1. Multiple myeloma. 2. Normochromic, normocytic anemia. 3. Hypercholesterolemia. 4. Chronic obstructive pulmonary disease. CHIEF COMPLAINT Patient is here today for followup of his multiple myeloma on maintenance Revlimid therapy. ONCOLOGY HISTORY The patient is a 77-year-old male who had history of emphysema and hypercholesterolemia. He had a normal CBC in July 2014. The patient was found lately to have anemia. His blood count on April 15, 2016, showed white count 7.1, hemoglobin 10.9, hematocrit 33.3%, platelets 272,000 and MCV normal at 90. His serum creatinine was 1.71 at that time, and his glomerular filtration rate was 39 mL/min. Soluble transferrin receptor assay was normal at 4.3. Serum iron was 62. TIBC was 261. Iron saturation 23.8. Ferritin was 139. So, all his iron studies were within the normal range. EPO level was mildly elevated at 47, red cell folate was normal at 1252, serum folate was normal at more than 22. B12 was 360. Methylmalonic acid assay was normal at 0.25. Haptoglobin was high at 287. Repeat CBC showed hemoglobin 11.2, hematocrit 33, platelets 246,000, white count 7.3. Serum protein electrophoresis showed monoclonal protein of 1.95, but unfortunately no immunofixation was done. Bone marrow aspiration biopsy done on June 25, 2016, came back positive for lambda restricted plasmocytosis compatible with plasma cell myeloma with 20% to 40% of the core bone marrow biopsy positive for plasma cells. FISH for myeloma came back positive for 4p-, +5, 11q+, -13, 14q-, 16q-, and 17 adrian+. Skeletal bone survey done on June 25, 2016, did reveal multiple lucencies in the greater trochanter of the left hip and a void lucency seen on the lateral view of the skull in the frontal region. The patient started treatment with CyBorD chemotherapy on July 23, 2016. Patient finished his chemotherapy with CyBorD on June 17, 2017, and he started maintenance Revlimid therapy June 2017. HISTORY OF PRESENT ILLNESS Patient is here today for followup of his multiple myeloma on maintenance Revlimid therapy. He is doing fine currently. He denies any complaints today. His neuropathy in the feet resolved completely. PAST MEDICAL HISTORY 1. Hypercholesterolemia. 2. Emphysema. 3. Tobacco abuse. 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 5. Tinnitus. 6. History of fractured femur. PAST SURGICAL HISTORY 1. Bilateral cataract surgery 2002. 2. In 2014, foreign body removed from the foot. 3. Double hernia repair in 2001. 4. Fracture repair of the femur in 1956. 5. In 2004, he had fracture of the right arm. FAMILY HISTORY Negative for cancer or blood diseases. SOCIAL HISTORY The patient is with four children, three living. 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 He smokes about one pack a day for 60 years. He seldom drinks, once or twice per year. He denies any abuse of illicit drugs. CURRENT MEDICATIONS 1. Lovastatin 20 mg daily. 2. Baby aspirin 81 mg daily. 3. Revlimid 10 mg daily. ALLERGIES No known drug allergies. REVIEW OF SYSTEMS CONSTITUTIONAL: No appetite or weight change. No fever, chills, or sweating. No recent infection. HEENT: Ears: No tinnitus or hearing problem. Nose: No nasal discharge or epistaxis. Throat: No sore throat or mouth ulcers. Eyes: No diplopia or visual changes. RESPIRATORY: Patient has cough with expectoration of thick phlegm. CARDIOVASCULAR: No chest pain, orthopnea, or paroxysmal nocturnal dyspnea (PND). No edema. No palpitations. GASTROINTESTINAL: He has constipation. GENITOURINARY: He has a weak stream. No hematuria or dysuria. MUSCULOSKELETAL: He has pain in the thighs, especially on standing up. NEUROLOGICAL: He has some numbness in his fingers. HEMATOLOGIC/LYMPHATIC: He is weak and fatigued. No enlarged lymph nodes. SKIN: No skin rash or lumps. PSYCHIATRIC: No anxiety or depression. PHYSICAL EXAMINATION GENERAL: Looks stable. Well developed, well nourished, and in no acute distress. VITAL SIGNS: Blood pressure 121/73, pulse 66 per minute, respirations 16 per minute, temperature 98.2, pulse ox 94% on 1L oxygen. HEENT: Head: Atraumatic. No sinus tenderness to palpation. Eyes: No icterus or conjunctivitis. Mouth and throat: No oral thrush or mucositis. NECK: Supple. No cervical or supraclavicular lymphadenopathy. LUNGS: Clear to auscultation and percussion bilaterally. HEART: Regular rate and rhythm. No gallops, murmurs, clicks, or rubs. ABDOMEN: Soft and lax. No tenderness. No hepatosplenomegaly. No masses. EXTREMITIES: There is minimal ankle edema. LYMPHATICS: No peripheral lymphadenopathy. NEUROLOGICAL: Conscious, alert, and oriented times three. No focal motor or sensory deficits. PSYCHIATRIC: Mood and affect appear normal. SKIN: No skin rash, bruise, or purpuric eruption. DIAGNOSTIC DATA CBC showed white count 2.4, hemoglobin 12.7, platelets 123,000, hematocrit 37.2%, Chem panel is totally normal except creatinine 1.3, sodium 136, total bilirubin 1.6, AST 37. Beta-2 microglobulin is 3.2. Serum protein electrophoresis showed a faint band in the IgG lambda. IgM is 33. IgA is 45 and IgG is 568. [place] free light chain is 1.95. Lambda free light chain is 2.2. [place] free lambda free light chain ratio is 0.89. His results are really very good and stable. ASSESSMENT 1. Multiple myeloma with IgG lambda monoclonal protein. Initial level was 1.9 g/dL of the monoclonal protein. Beta-2 microglobulin was 4.7. [place] free light chain was normal while lambda free light chain was high at 245. Skeletal bone survey showed multiple lucencies in the greater trochanter of the hip and the skull. Bone marrow aspiration biopsy June 25, 2016 revealed 20% to 40% lambda restricted plasmacytosis consistent with multiple myeloma. FISH for multiple myeloma came back positive for 4p-, +5, 11q+, -13, 14q-, and 17cen+. Patient received chemotherapy with CyBorD on July 23, 2016 and he completed 12 courses June 17, 2017. His IgG lambda monoclonal protein dropped from 1.9 and currently there is only a faint band in IgG lambda. His lambda free light chain dropped from 245 and currently it is 2.2, within the normal range. I am planning to continue Revlimid at 10 mg daily. I will continue to monitor his white count and ANC. If ANC drops less than 500 in the future, I will decrease the dose of Revlimid from 10 to 7.5 mg daily. Het had a PET scan recently, which did not show any activity in the bones or the bone marrow. I will see him again in one month with CBC, chem panel, LDH, uric acid and myeloma profile. I will continue Xgeva 120 mg subcutaneously every month for a total of two years. 2. Leukopenia/neutropenia due to Revlimid therapy. Current white count is 2.4. I will consider decreasing the dose of Revlimid to 7.5 mg daily if his ANC is less than 500. 3. Chronic obstructive pulmonary disease, on home oxygen. PLAN 1. Revlimid 10 mg daily. 2. Xgeva 120 mg subcutaneously every month. He will complete two years of Xgeva in July 2018. 4. Patient to contact us for any new concern or complaints. MTDD
[2018-04-27 10:12] VITALS: BP 103/66
[2018-04-27 10:17] LABS: PLATELET COUNT, AUTOMATED 145 K/uL (150-450)
[2018-05-24 15:05] VITALS: BP 97/80
[2018-05-24 15:31] LABS: PLATELET COUNT, AUTOMATED 143 K/uL (150-450)
[2018-06-03 13:07] VITALS: BP 116/70
--- NOTE | 2018-06-04 14:37 | [facility] ONCOLOGY NOTE ---
EVENT DATE: June 03, 2018 DIAGNOSES 1. Multiple myeloma. 2. Normochromic, normocytic anemia. 3. Hypercholesterolemia. 4. Chronic obstructive pulmonary disease. CHIEF COMPLAINT Patient is here today for followup of his multiple myeloma on maintenance Revlimid therapy. ONCOLOGY HISTORY The patient is a 77-year-old male who has history of emphysema and hypercholesterolemia. He had a normal CBC in July 2014. The patient was found lately to have anemia. His blood count on April 15, 2016, showed white count 7.1, hemoglobin 10.9, hematocrit 33.3%, platelets 272,000, and MCV normal at 90. His serum creatinine was 1.71 at that time, and his glomerular filtration rate was 39 mL/min. Soluble transferrin receptor assay was normal at 4.3. Serum iron was 62. TIBC was 261. Iron saturation 23.8. Ferritin was 139. So, all his iron studies were within the normal range. EPO level was mildly elevated at 47, red cell folate was normal at 1252, serum folate was normal at more than 22. B12 was 360. Methylmalonic acid assay was normal at 0.25. Haptoglobin was high at 287. Repeat CBC showed hemoglobin 11.2, hematocrit 33, platelets 246,000, white count 7.3. Serum protein electrophoresis showed monoclonal protein of 1.95, but unfortunately, no immunofixation was done. Bone marrow aspiration biopsy done on June 25, 2016, came back positive for lambda restricted plasmocytosis compatible with plasma cell myeloma with 20% to 40% of the core bone marrow biopsy positive for plasma cells. FISH for myeloma came back positive for 4p-, +5, 11q+, -13, 14q-, 16q-, and 17cen+. Skeletal bone survey done on June 25, 2016, did reveal multiple lucencies in the greater trochanter of the left hip and a void lucency seen on the lateral view of the skull in the frontal region. The patient started treatment with CyBorD chemotherapy on July 23, 2016. Patient finished his chemotherapy with CyBorD on June 17, 2017, and he started maintenance Revlimid therapy June 2017. HISTORY OF PRESENT ILLNESS Patient is here today for followup of his multiple myeloma on maintenance Revlimid therapy. He is complaining of some constipation that responded to Colace. He visited the ER recently for abdominal pain which resolved completely by itself. PAST MEDICAL HISTORY 1. Hypercholesterolemia. 2. Emphysema. 3. Tobacco abuse. 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 5. Tinnitus. 6. History of fractured femur. PAST SURGICAL HISTORY 1. Bilateral cataract surgery 2002. 2. In 2014, foreign body removed from the foot. 3. Double hernia repair in 2001. 4. Fracture repair of the femur in 1956. 5. In 2004, he had fracture of the right arm. FAMILY HISTORY Negative for cancer or blood diseases. SOCIAL HISTORY The patient is with four children, three living. 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 He smokes about one pack a day for 60 years. He seldom drinks, once or twice per year. He denies any abuse of illicit drugs. CURRENT MEDICATIONS 1. Lovastatin 20 mg daily. 2. Baby aspirin 81 mg daily. 3. Revlimid 10 mg daily. ALLERGIES No known drug allergies. REVIEW OF SYSTEMS CONSTITUTIONAL: No appetite or weight change. No fever, chills, or sweating. No recent infection. HEENT: Ears: No tinnitus or hearing problem. Nose: No nasal discharge or epistaxis. Throat: No sore throat or mouth ulcers. Eyes: No diplopia or visual changes. RESPIRATORY: No shortness of breath. No cough, expectoration, or hemoptysis. CARDIOVASCULAR: No chest pain, orthopnea, or paroxysmal nocturnal dyspnea (PND). No edema. No palpitations. GASTROINTESTINAL: No nausea or vomiting. No diarrhea. He has constipation, responded to Colace. No change in bowel movements. No heartburn or swallowing difficulties. No abdominal pain. No jaundice. No hematemesis, melena, or rectal bleeding. GENITOURINARY: No hematuria or dysuria. MUSCULOSKELETAL: No pain in the muscles, joints, or bones. NEUROLOGIC: No tingling or numbness in the hands or feet. No headaches or convulsions. HEMATOLOGIC/LYMPHATIC: No bleeding or easy bruising. No weakness or fatigue. No enlarged lymph nodes. SKIN: No skin rash or lumps. PSYCHIATRIC: No anxiety or depression. PHYSICAL EXAMINATION GENERAL: Looks stable. Well developed, well nourished, and in no acute distress. VITAL SIGNS: Blood pressure 116/70, pulse 69 per minute, respirations 16 per minute, temperature 98.8, pulse ox 95% on 1L oxygen. HEENT: Head: Atraumatic. No sinus tenderness to palpation. Eyes: No icterus or conjunctivitis. Mouth and throat: No oral thrush or mucositis. NECK: Supple. No cervical or supraclavicular lymphadenopathy. LUNGS: Clear to auscultation and percussion bilaterally. HEART: Regular rate and rhythm. No gallops, murmurs, clicks, or rubs. ABDOMEN: Soft and lax. No tenderness. No hepatosplenomegaly. No masses. EXTREMITIES: No cyanosis, clubbing, or edema. LYMPHATICS: No peripheral lymphadenopathy. NEUROLOGIC: Conscious, alert, and oriented times three. No focal motor or sensory deficits. PSYCHIATRIC: Mood and affect appear normal. SKIN: No skin rash, bruise, or purpuric eruption. DIAGNOSTIC DATA CBC showed white count 2.9, hemoglobin 12.3, hematocrit 35.9, platelets 143,000, ANC 1.3. Chem panel is totally normal except potassium 3.2, sodium 135, creatinine 1.4, uric acid 3.3, AST 40, ALT 90, alkaline phosphatase 349. Beta-2 microglobulin is 3.7. IgG level is 712. IgA is 60 and IgM 26. Serum protein immunoelectrophoresis showed a faint band in the IgG lambda, suggestive of a specific immune response or early monoclonal protein. [place] free light chain is high at 3.02, and lambda free light chain is high at 2.8. The kappa to lambda free light chain ratio is normal at 1.08. ASSESSMENT 1. Multiple myeloma with IgG lambda monoclonal protein. Initial level was 1.9 g/dL of the monoclonal protein. Beta-2 microglobulin was 4.7. [place] free light chain was normal, while lambda free light chain was high at 245. Skeletal bone survey showed multiple lucencies in the greater trochanter of the hip and the skull. Bone marrow aspiration biopsy June 25, 2016, revealed 20% to 40% lambda restricted plasmacytosis consistent with multiple myeloma. FISH for multiple myeloma came back positive for 4p-, +5, 11q+, -13, 14q-, and 17cen+. Patient received chemotherapy with CyBorD on July 23, 2016, and he completed 12 courses June 17, 2017. His IgG lambda monoclonal protein dropped from 1.9 and currently shows only a faint band in the IgG lambda by serum protein immunoelectrophoresis. His lambda free light chain dropped from 245 and currently 2.8, which is a little bit slightly elevated. I am planning to continue followup. I will see him again in a month with CBC, chemistry panel, LDH, uric acid, and myeloma profile. I will continue Xgeva 120 mg subcutaneously every month for a total of two years. 2. Leukopenia/neutropenia due to Revlimid therapy. Current white count is 2.4 and the ANC 1.3. I will continue to monitor. I will consider decreasing the dose if severe neutropenia were located in the future. 3. Chronic obstructive pulmonary disease, on home oxygen. PLAN 1. Revlimid 10 mg daily. 2. Xgeva 120 mg subcutaneously every month. He will complete two years of Xgeva in July 2018. 3. Patient to contact us for any new concerns or complaints. MTDD
[~2018-06-23 10:07] MED LIST changes: +DENOSUMAB 120 MG/1.7 ML VIAL SUBQ ONE; +TRAM-420 PO
[2018-06-23 10:10] VITALS: BP 107/63
[2018-06-23 10:28] LABS: PLATELET COUNT, AUTOMATED 202 K/uL (150-450)
== END 2018-06-28 ==
LOC: SPU 10:07
PROVIDERS: ATTEND Internal Medicine Hematology
DX: C90.00 Multiple myeloma not having achieved remission (principal); D64.9 Anemia, unspecified; Z92.21 Personal history of antineoplastic chemotherapy; J44.9 Chronic obstructive pulmonary disease, unspecified; E78.00 Pure hypercholesterolemia, unspecified; F17.210 Nicotine dependence, cigarettes, uncomplicated; R53.1 Weakness; R53.83 Other fatigue; R05 Cough; K59.00 Constipation, unspecified; D70.2 Other drug-induced agranulocytosis; T45.1X5S Adverse effect of antineoplastic and immunosuppressive drugs, sequela
CPT/HCPCS: 36415; 82232; 83036; 83615; 83883; 84550; 85025; 86334; 96372; G0463; J0897; 82040; 82247; 82310; 82374; 82435; 82465; 82565; 82947; 83718; 84075; 84132; 84155; 84295; 84450; 84460; 84478; 84520; 99212

== ENCOUNTER → 2018-09-13 | Outpatient (CLI) | payer MEDICARE, OTHER ==
[2017-12-26 12:07] VITALS: BMI 24.8
[~2018-09-13] MED LIST changes: -DENOSUMAB 120 MG/1.7 ML VIAL SUBQ ONE; +GABA-549 PO
== END ==
LOC: LAB 09:08
PROVIDERS: ATTEND Nurse Practitioner Family
DX: E78.2 Mixed hyperlipidemia (principal); R73.09 Other abnormal glucose; R53.83 Other fatigue
CPT/HCPCS: 36415; 82465; 83036; 83718; 84443; 84478

== ENCOUNTER 2018-09-29 14:14 | Outpatient (RCR) | payer MEDICARE, OTHER ==
[2017-12-26 12:07] VITALS: Wt 76.1 kg
[2018-07-07 09:19] VITALS: BP 117/56
[2018-07-07 09:43] VITALS: BP 117/65
--- NOTE | 2018-07-07 10:30 | NUR ---
Pt completed HADS initial form. D:0, A:0. No reported concerns at this time.
--- NOTE | 2018-07-07 10:32 | [facility] ONCOLOGY NOTE ---
EVENT DATE: July 07, 2018 DIAGNOSES 1. Multiple myeloma. 2. Normochromic, normocytic anemia. 3. Hypercholesterolemia. 4. Chronic obstructive pulmonary disease. CHIEF COMPLAINT Patient is here today for followup of his multiple myeloma, on maintenance Revlimid therapy. ONCOLOGY HISTORY The patient is a 77-year-old male who has history of emphysema and hypercholesterolemia. He had a normal CBC in July 2014. The patient was found lately to have anemia. His blood count on April 15, 2016, showed white count 7.1, hemoglobin 10.9, hematocrit 33.3%, platelets 272,000, and MCV normal at 90. His serum creatinine was 1.71 at that time, and his glomerular filtration rate was 39 mL/min. Soluble transferrin receptor assay was normal at 4.3. Serum iron was 62. TIBC was 261. Iron saturation 23.8. Ferritin was 139. So, all his iron studies were within the normal range. EPO level was mildly elevated at 47, red cell folate was normal at 1252, serum folate was normal at more than 22. B12 was 360. Methylmalonic acid assay was normal at 0.25. Haptoglobin was high at 287. Repeat CBC showed hemoglobin 11.2, hematocrit 33, platelets 246,000, white count 7.3. Serum protein electrophoresis showed monoclonal protein of 1.95, but unfortunately, no immunofixation was done. Bone marrow aspiration biopsy done on June 25, 2016, came back positive for lambda restricted plasmocytosis compatible with plasma cell myeloma with 20% to 40% of the core bone marrow biopsy positive for plasma cells. FISH for myeloma came back positive for 4p-, +5, 11q+, -13, 14q-, 16q-, and 17cen+. Skeletal bone survey done on June 25, 2016, did reveal multiple lucencies in the greater trochanter of the left hip and a void lucency seen on the lateral view of the skull in the frontal region. The patient started treatment with CyBorD chemotherapy on July 23, 2016. Patient finished his chemotherapy with CyBorD on June 17, 2017, and he started maintenance Revlimid therapy June 2017. HISTORY OF PRESENT ILLNESS Patient is here today for followup of his multiple myeloma, on maintenance Revlimid therapy. 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 PAST MEDICAL HISTORY 1. Hypercholesterolemia. 2. Emphysema. 3. Tobacco abuse. 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 5. Tinnitus. 6. History of fractured femur. PAST SURGICAL HISTORY 1. Bilateral cataract surgery 2002. 2. In 2014, foreign body removed from the foot. 3. Double hernia repair in 2001. 4. Fracture repair of the femur in 1956. 5. In 2004, he had fracture of the right arm. FAMILY HISTORY Negative for cancer or blood diseases. SOCIAL HISTORY The patient is with four children, three living. 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 He smokes about one pack a day for 60 years. He seldom drinks, once or twice per year. He denies any abuse of illicit drugs. CURRENT MEDICATIONS 1. Lovastatin 20 mg daily. 2. Baby aspirin 81 mg daily. 3. Revlimid 10 mg daily. ALLERGIES No known drug allergies. REVIEW OF SYSTEMS CONSTITUTIONAL: No appetite or weight change. No fever, chills, or sweating. No recent infection. HEENT: Ears: No tinnitus or hearing problem. Nose: No nasal discharge or epistaxis. Throat: No sore throat or mouth ulcers. Eyes: No diplopia or visual changes. RESPIRATORY: No shortness of breath. No cough, expectoration, or hemoptysis. CARDIOVASCULAR: No chest pain, orthopnea, or paroxysmal nocturnal dyspnea (PND). No edema. No palpitations. GASTROINTESTINAL: No nausea or vomiting. No diarrhea. He has constipation, responded to Colace. No change in bowel movements. No heartburn or swallowing difficulties. No abdominal pain. No jaundice. No hematemesis, melena, or rectal bleeding. GENITOURINARY: No hematuria or dysuria. MUSCULOSKELETAL: No pain in the muscles, joints, or bones. 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 HEMATOLOGIC/LYMPHATIC: No bleeding or easy bruising. No weakness or fatigue. No enlarged lymph nodes. SKIN: No skin rash or lumps. PSYCHIATRIC: No anxiety or depression. PHYSICAL EXAMINATION GENERAL: Looks stable. Well developed, well nourished, and in no acute distress. VITAL SIGNS: Blood pressure 117/65, pulse 56 per minute, respirations 16 per minute, temperature 98.6, pulse ox 97% on room air. HEENT: Head: Atraumatic. No sinus tenderness to palpation. Eyes: No icterus or conjunctivitis. Mouth and throat: No oral thrush or mucositis. NECK: Supple. No cervical or supraclavicular lymphadenopathy. LUNGS: Clear to auscultation and percussion bilaterally. HEART: Regular rate and rhythm. No gallops, murmurs, clicks, or rubs. ABDOMEN: Soft and lax. No tenderness. No hepatosplenomegaly. No masses. EXTREMITIES: No cyanosis, clubbing, or edema. LYMPHATICS: No peripheral lymphadenopathy. NEUROLOGIC: Conscious, alert, and oriented times three. No focal motor or sensory deficits. PSYCHIATRIC: Mood and affect appear normal. SKIN: No skin rash, bruise, or purpuric eruption. DIAGNOSTIC DATA CBC showed white count 2.7, hemoglobin 12.2, hematocrit 36.8, platelets 202,000. Chem panel is totally normal except creatinine 1.3, uric acid 3.4. Beta-2 microglobulin is slightly elevated at 3. [place] free light chain is slightly elevated at 3.04. IgG, IgA and IgM are normal except mildly low IgA at 48 and mildly low IgM at 30. Immunoelectrophoresis showed a faint band in IgG lambda, suggestive of a specific immune response or an early monoclonal protein. ASSESSMENT 1. Multiple myeloma with IgG lambda monoclonal protein. Initial level was 1.9 g/dL of the monoclonal protein. Beta-2 microglobulin was 4.7. [place] free light chain was normal, while lambda free light chain was high at 245. Skeletal bone survey showed multiple lucencies in the greater trochanter of the hip and the skull. Bone marrow aspiration biopsy June 25, 2016, revealed 20% to 40% lambda restricted plasmacytosis consistent with multiple myeloma. FISH for multiple myeloma came back positive for 4p-, +5, 11q+, -13, 14q-, and 17cen+. Patient received chemotherapy with CyBorD on July 23, 2016, and he completed 12 courses June 17, 2017. His IgG lambda monoclonal protein dropped from 1.9 and currently there is only a faint band in the IgG lambda by serum protein immunoelectrophoresis. His lambda free light chain dropped from 245 and currently it is 2.48, within the normal range. I am planning to continue followup. I will see him again in a month with CBC, chemistry panel, LDH, uric acid and myeloma profile. I will continue Xgeva 120 mg subcutaneously every month for a total of two years. 2. Leukopenia/neutropenia due to Revlimid. Current white count is 2.7, which is stable. I will continue to monitor. 3. Chronic obstructive pulmonary disease, on home oxygen. PLAN 1. Revlimid 10 mg daily. 2. Xgeva 120 mg subcutaneously every month. Patient will complete two years of Xgeva in July 2018. 3. Patient to contact us for any new concerns or complaints. MTDD
[2018-07-25 09:31] VITALS: BP 90/63
[2018-07-25 09:55] LABS: PLATELET COUNT, AUTOMATED 193 K/uL (150-450)
[2018-08-04 11:33] VITALS: BP 106/61
--- NOTE | 2018-08-04 12:42 | [facility] ONCOLOGY NOTE ---
EVENT DATE: August 04, 2018 DIAGNOSES 1. Multiple myeloma. 2. Normochromic, normocytic anemia. 3. Hypercholesterolemia. 4. Chronic obstructive pulmonary disease. CHIEF COMPLAINT Patient is here today for followup of his multiple myeloma, on maintenance Revlimid therapy. ONCOLOGY HISTORY The patient is a 77-year-old male who has history of emphysema and hypercholesterolemia. He had a normal CBC in July 2014. The patient was found lately to have anemia. His blood count on April 15, 2016, showed white count 7.1, hemoglobin 10.9, hematocrit 33.3%, platelets 272,000, and MCV normal at 90. His serum creatinine was 1.71 at that time, and his glomerular filtration rate was 39 mL/min. Soluble transferrin receptor assay was normal at 4.3. Serum iron was 62. TIBC was 261. Iron saturation 23.8. Ferritin was 139. So, all his iron studies were within the normal range. EPO level was mildly elevated at 47, red cell folate was normal at 1252, serum folate was normal at more than 22. B12 was 360. Methylmalonic acid assay was normal at 0.25. Haptoglobin was high at 287. Repeat CBC showed hemoglobin 11.2, hematocrit 33, platelets 246,000, white count 7.3. Serum protein electrophoresis showed monoclonal protein of 1.95, but unfortunately, no immunofixation was done. Bone marrow aspiration biopsy done on June 25, 2016, came back positive for lambda restricted plasmocytosis compatible with plasma cell myeloma with 20% to 40% of the core bone marrow biopsy positive for plasma cells. FISH for myeloma came back positive for 4p-, +5, 11q+, -13, 14q-, 16q-, and 17cen+. Skeletal bone survey done on June 25, 2016, did reveal multiple lucencies in the greater trochanter of the left hip and a void lucency seen on the lateral view of the skull in the frontal region. The patient started treatment with CyBorD chemotherapy on July 23, 2016. Patient finished his chemotherapy with CyBorD on June 17, 2017, and he started maintenance Revlimid therapy June 2017. HISTORY OF PRESENT ILLNESS Patient is here today for followup of his multiple myeloma, on maintenance Revlimid therapy. He is doing fine currently and is totally asymptomatic. PAST MEDICAL HISTORY 1. Hypercholesterolemia. 2. Emphysema. 3. Tobacco abuse. 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 5. Tinnitus. 6. History of fractured femur. PAST SURGICAL HISTORY 1. Bilateral cataract surgery 2002. 2. In 2014, foreign body removed from the foot. 3. Double hernia repair in 2001. 4. Fracture repair of the femur in 1956. 5. In 2004, he had fracture of the right arm. FAMILY HISTORY Negative for cancer or blood diseases. SOCIAL HISTORY The patient is with four children, three living. 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 He smokes about one pack a day for 60 years. He seldom drinks, once or twice per year. He denies any abuse of illicit drugs. CURRENT MEDICATIONS 1. Lovastatin 20 mg daily. 2. Baby aspirin 81 mg daily. 3. Revlimid 10 mg daily. ALLERGIES No known drug allergies. REVIEW OF SYSTEMS CONSTITUTIONAL: No appetite or weight change. No fever, chills, or sweating. No recent infection. HEENT: Ears: No tinnitus or hearing problem. Nose: No nasal discharge or epistaxis. Throat: No sore throat or mouth ulcers. Eyes: No diplopia or visual changes. RESPIRATORY: No shortness of breath. No cough, expectoration, or hemoptysis. CARDIOVASCULAR: No chest pain, orthopnea, or paroxysmal nocturnal dyspnea (PND). No edema. No palpitations. GASTROINTESTINAL: No nausea or vomiting. No diarrhea. He has constipation, responded to Colace. No change in bowel movements. No heartburn or swallowing difficulties. No abdominal pain. No jaundice. No hematemesis, melena, or rectal bleeding. GENITOURINARY: No hematuria or dysuria. MUSCULOSKELETAL: No pain in the muscles, joints, or bones. 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 HEMATOLOGIC/LYMPHATIC: No bleeding or easy bruising. No weakness or fatigue. No enlarged lymph nodes. SKIN: No skin rash or lumps. PSYCHIATRIC: No anxiety or depression. PHYSICAL EXAMINATION GENERAL: Looks stable. Well developed, well nourished, and in no acute distress. VITAL SIGNS: Blood pressure 106/61, pulse 56 per minute, respirations 16 per minute, temperature 96.7, pulse ox 94% on room air. HEENT: Head: Atraumatic. No sinus tenderness to palpation. Eyes: No icterus or conjunctivitis. Mouth and throat: No oral thrush or mucositis. NECK: Supple. No cervical or supraclavicular lymphadenopathy. LUNGS: Clear to auscultation and percussion bilaterally. HEART: Regular rate and rhythm. No gallops, murmurs, clicks, or rubs. ABDOMEN: Soft and lax. No tenderness. No hepatosplenomegaly. No masses. EXTREMITIES: No cyanosis, clubbing, or edema. LYMPHATICS: No peripheral lymphadenopathy. NEUROLOGIC: Conscious, alert, and oriented times three. No focal motor or sensory deficits. PSYCHIATRIC: Mood and affect appear normal. SKIN: No skin rash, bruise, or purpuric eruption. DIAGNOSTIC DATA CBC showed white count 3.1, hemoglobin 12.8, hematocrit 38.7, platelets 193,000. ANC is 1.3. Chem panel is totally normal except sodium 136, carbon dioxide 21, chloride 108, BUN 25, creatinine 1.3, AST 44, ALT 67. Other parameters are normal. Beta-2 microglobulin is 3.2. [place] free light chain is 2.6, lambda free light chain 2.39, kappa to lambda free light chain ratio is 1.09. IgG is normal at 840. IgA is low at 44 and IgM is low at 26. Immunoelectrophoresis shows a faint band in IgG lambda, suggestive of a specific immune response or an early monoclonal protein. ASSESSMENT 1. Multiple myeloma with IgG lambda monoclonal protein. Initial protein level was 1.9 g/dL. Beta-2 microglobulin was 4.7. [place] free light chain was normal, while lambda free light chain was high at 245. Skeletal bone survey showed multiple lucencies in the greater trochanter of the hip and the skull. Bone marrow aspiration biopsy June 25, 2016, revealed 20% to 40% lambda restricted plasmacytosis consistent with multiple myeloma. FISH for multiple myeloma came back positive for 4p-, +5, 11q+, -13, 14q-, and 17cen+. Patient received chemotherapy with CyBorD on July 23, 2016, and he completed 12 courses June 17, 2017. His IgG lambda monoclonal protein dropped from 1.9 and currently there is only a faint band in the IgG lambda by serum protein immunoelectrophoresis. [place] free light chain dropped from 245 and currently it is 2.39. It is within the normal range and it is trending down. I am planning to see the patient again in a month with CBC, chem panel, LDH, uric acid and myeloma profile. I will continue Xgeva 120 mg subcutaneously today and then every three months thereafter. 2. Leukopenia/neutropenia due to Revlimid. Current white count is 3.1 and ANC 1.3. I will continue to monitor. 3. Chronic obstructive pulmonary disease, on home oxygen. PLAN 1. Revlimid 10 mg daily for three weeks and one week off. 2. Xgeva 120 mg subcutaneously today and every three months after that. 3. Patient to contact us for any new concerns or complaints. MTDD
[2018-08-22 13:36] LABS: PLATELET COUNT, AUTOMATED 174 K/uL (150-450)
[2018-09-02 15:26] VITALS: BP 101/66
--- NOTE | 2018-09-03 02:58 | EL-[facility] ONCOLOGY NOTE ---
EVENT DATE: September 02, 2018 DIAGNOSES 1. Multiple myeloma. 2. Normochromic, normocytic anemia. 3. Hypercholesterolemia. 4. Chronic obstructive pulmonary disease. CHIEF COMPLAINT Patient is here today for followup of his multiple myeloma, on maintenance Revlimid therapy. ONCOLOGY HISTORY The patient is a 77-year-old male who has history of emphysema and hypercholesterolemia. He had a normal CBC in July 2014. The patient was found lately to have anemia. His blood count on April 15, 2016, showed white count 7.1, hemoglobin 10.9, hematocrit 33.3%, platelets 272,000, and MCV normal at 90. His serum creatinine was 1.71 at that time, and his glomerular filtration rate was 39 mL/min. Soluble transferrin receptor assay was normal at 4.3. Serum iron was 62. TIBC was 261. Iron saturation 23.8. Ferritin was 139. So, all his iron studies were within the normal range. EPO level was mildly elevated at 47, red cell folate was normal at 1252, serum folate was normal at more than 22. B12 was 360. Methylmalonic acid assay was normal at 0.25. Haptoglobin was high at 287. Repeat CBC showed hemoglobin 11.2, hematocrit 33, platelets 246,000, white count 7.3. Serum protein electrophoresis showed monoclonal protein of 1.95, but unfortunately, no immunofixation was done. Bone marrow aspiration biopsy done on June 25, 2016, came back positive for lambda restricted plasmocytosis compatible with plasma cell myeloma with 20% to 40% of the core bone marrow biopsy positive for plasma cells. FISH for myeloma came back positive for 4p-, +5, 11q+, -13, 14q-, 16q-, and 17cen+. Skeletal bone survey done on June 25, 2016, did reveal multiple lucencies in the greater trochanter of the left hip and a void lucency seen on the lateral view of the skull in the frontal region. The patient started treatment with CyBorD chemotherapy on July 23, 2016. Patient finished his chemotherapy with CyBorD on June 17, 2017, and he started maintenance Revlimid therapy June 2017. HISTORY OF PRESENT ILLNESS Patient is here today for followup of his multiple myeloma. He is complaining of neuropathy, but it is getting better after he started treatment with gabapentin. Other than that, he is stable. He has an infected wound on the right leg. PAST MEDICAL HISTORY 1. Hypercholesterolemia. 2. Emphysema. 3. Tobacco abuse. 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 5. Tinnitus. 6. History of fractured femur. PAST SURGICAL HISTORY 1. Bilateral cataract surgery 2002. 2. In 2014, foreign body removed from the foot. 3. Double hernia repair in 2001. 4. Fracture repair of the femur in 1956. 5. In 2004, he had fracture of the right arm. FAMILY HISTORY Negative for cancer or blood diseases. SOCIAL HISTORY The patient is with four children, three living. 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 He smokes about one pack a day for 60 years. He seldom drinks, once or twice per year. He denies any abuse of illicit drugs. CURRENT MEDICATIONS 1. Lovastatin 20 mg daily. 2. Baby aspirin 81 mg daily. 3. Revlimid 10 mg daily. ALLERGIES No known drug allergies. REVIEW OF SYSTEMS CONSTITUTIONAL: No appetite or weight change. No fever, chills, or sweating. No recent infection. HEENT: Ears: No tinnitus or hearing problem. Nose: No nasal discharge or epistaxis. Throat: No sore throat or mouth ulcers. Eyes: No diplopia or visual changes. RESPIRATORY: No shortness of breath. No cough, expectoration, or hemoptysis. CARDIOVASCULAR: No chest pain, orthopnea, or paroxysmal nocturnal dyspnea (PND). No edema. No palpitations. GASTROINTESTINAL: No nausea or vomiting. No diarrhea. He has constipation, responded to Colace. No change in bowel movements. No heartburn or swallowing difficulties. No abdominal pain. No jaundice. No hematemesis, melena, or rectal bleeding. GENITOURINARY: No hematuria or dysuria. MUSCULOSKELETAL: No pain in the muscles, joints, or bones. NEUROLOGIC: He has some neuropathy in his feet, which is getting better with Neurontin. HEMATOLOGIC/LYMPHATIC: No bleeding or easy bruising. No weakness or fatigue. No enlarged lymph nodes. SKIN: No skin rash or lumps. PSYCHIATRIC: No anxiety or depression. PHYSICAL EXAMINATION GENERAL: Looks stable. Well developed, well nourished, and in no acute distress. VITAL SIGNS: Blood pressure 101/66, pulse 60 per minute, respirations 16 per minute, temperature 98.8, pulse ox 91% on 2L oxygen. HEENT: Head: Atraumatic. No sinus tenderness to palpation. Eyes: No icterus or conjunctivitis. Mouth and throat: No oral thrush or mucositis. NECK: Supple. No cervical or supraclavicular lymphadenopathy. LUNGS: Clear to auscultation and percussion bilaterally. HEART: Regular rate and rhythm. No gallops, murmurs, clicks, or rubs. ABDOMEN: Soft and lax. No tenderness. No hepatosplenomegaly. No masses. EXTREMITIES: No cyanosis, clubbing, or edema. LYMPHATICS: No peripheral lymphadenopathy. NEUROLOGIC: Conscious, alert, and oriented times three. No focal motor or sensory deficits. PSYCHIATRIC: Mood and affect appear normal. SKIN: No skin rash, bruise, or purpuric eruption. DIAGNOSTIC DATA CBC showed white count 4.2, hemoglobin 14.3, hematocrit 42.8, platelets 174,000. Chem panel normal except BUN 28, creatinine 1.4, AST 44. IgG level is normal at 904. IgA is low at 46. IgM is normal at 35. Immunoelectrophoresis showed a faint band in IgG lambda, suggestive of a specific immune response or an early monoclonal protein. Beta-2 microglobulin is 3.2. [place] free light chain is mildly elevated at 2.49, while lambda free light chain is 2.09 and [id number] free light chain ratio is normal at 1.19. ASSESSMENT 1. Multiple myeloma with IgG lambda monoclonal protein. Initial protein level was 1.9 g/dL. Beta-2 microglobulin was 4.7. [place] free light chain was normal, while lambda free light chain was high at 245. Skeletal bone survey showed multiple lucencies in the greater trochanter of the hip and the skull. Bone marrow aspiration biopsy June 25, 2016, revealed 20% to 40% lambda restricted plasmacytosis consistent with multiple myeloma. FISH for multiple myeloma came back positive for 4p-, +5, 11q+, -13, 14q-, and 17cen+. Patient received chemotherapy with CyBorD on July 23, 2016, and he completed 12 courses June 17, 2017. His IgG lambda monoclonal protein dropped from 1.9 and currently there is a faint band in the IgG lambda by serum protein immunoelectrophoresis. Lambda free light chain dropped from 245 and currently it is 2.09. I am planning to continue followup. I will see him again in a month with CBC, chemistry panel, LDH, uric acid, and myeloma profile. I will continue Xgeva 120 mg subcutaneously every three months. 2. Infected wound on the right leg. I am planning to put him on Keflex 500 mg q.i.d. for one week. 3. Chronic obstructive pulmonary disease, on home oxygen. PLAN 1. Revlimid 10 mg daily for three weeks out of four-week cycle. 2. Xgeva 120 mg subcutaneously every three months. He is due in two months from now. 3. Patient to return in one month with CBC, chem panel, LDH, uric acid, and myeloma profile. 4. Patient to contact us for any new concerns or complaints. MTDD
[~2018-09-29 14:14] MED LIST changes: +DENOSUMAB 120 MG/1.7 ML VIAL SUBQ ONE
[2018-09-29 14:29] VITALS: BP 102/65
[2018-09-29 14:33] LABS: PLATELET COUNT, AUTOMATED 189 K/uL (150-450)
[2018-10-06] MEDS ORDERED: LENA10CA4 PO (13:57)
[2018-10-06] MEDS ORDERED: PYRI100T57 PO (13:57)
[2018-10-06] MEDS ORDERED: DEN120I SUBQ (13:57)
[2018-10-06] MEDS ORDERED: DOCU-416 PO (14:01)
[2018-10-06] MEDS ORDERED: CHOL10005 PO (14:01)
== END 2018-10-04 ==
LOC: SPU 14:14
PROVIDERS: ATTEND Internal Medicine Hematology
DX: C90.00 Multiple myeloma not having achieved remission (principal); D64.9 Anemia, unspecified; Z92.21 Personal history of antineoplastic chemotherapy; J44.9 Chronic obstructive pulmonary disease, unspecified; E78.00 Pure hypercholesterolemia, unspecified; F17.210 Nicotine dependence, cigarettes, uncomplicated; R53.1 Weakness; R53.83 Other fatigue; R05 Cough; K59.00 Constipation, unspecified; D70.2 Other drug-induced agranulocytosis; T45.1X5S Adverse effect of antineoplastic and immunosuppressive drugs, sequela; Z99.81 Dependence on supplemental oxygen
CPT/HCPCS: 36415; 82232; 83615; 83883; 84550; 85025; 86334; 96372; G0463; J0897; 82040; 82247; 82310; 82374; 82435; 82565; 82947; 84075; 84132; 84155; 84295; 84450; 84460; 84520; 99212

== ENCOUNTER → 2018-11-03 | Outpatient (CLI) | payer MEDICARE, OTHER ==
[2017-12-26 12:07] VITALS: BMI 24.8
[~2018-11-03] MED LIST changes: +DEN120I SUBQ; -DENOSUMAB 120 MG/1.7 ML VIAL SUBQ ONE
[2018-11-03 09:15] LABS: PLATELET COUNT, AUTOMATED 223 K/uL (150-450)
== END ==
LOC: LAB 08:55
PROVIDERS: ATTEND Internal Medicine Nephrology
DX: N18.3 Chronic kidney disease, stage 3 (moderate) (principal); R60.0 Localized edema; J43.9 Emphysema, unspecified; N40.0 Benign prostatic hyperplasia without lower urinary tract symptoms; C90.00 Multiple myeloma not having achieved remission
CPT/HCPCS: 81001; 82040; 82310; 82374; 82435; 82565; 82570; 82947; 84100; 84132; 84156; 84295; 84520; 85025

== ENCOUNTER → 2018-11-03 | Outpatient (CLI) | payer MEDICARE, OTHER ==
[2017-12-26 12:07] VITALS: BMI 24.8
== END ==
LOC: LAB 09:00
PROVIDERS: ATTEND Nurse Practitioner Family
DX: E55.9 Vitamin D deficiency, unspecified (principal)
CPT/HCPCS: 82306

== ENCOUNTER 2018-12-30 14:12 | Outpatient (RCR) | payer MEDICARE, OTHER ==
[2017-12-26 12:07] VITALS: Wt 77.0 kg
[2018-10-06 13:52] VITALS: BP 100/63
--- NOTE | 2018-10-07 00:23 | ONCOLOGY FOLLOW UP NOTE ---
EVENT DATE: October 06, 2018 DIAGNOSES 1. Multiple myeloma. 2. Normochromic, normocytic anemia. 3. Hypercholesterolemia. 4. Chronic obstructive pulmonary disease. CHIEF COMPLAINT Patient is here today for followup of his multiple myeloma, on maintenance Revlimid therapy. Patient is one day into his week-long break from Revlimid for this cycle. ONCOLOGY HISTORY The patient is a 77-year-old male who has history of emphysema and hypercholesterolemia. He had a normal CBC in July 2014. The patient was found lately to have anemia. His blood count on April 15, 2016, showed white count 7.1, hemoglobin 10.9, hematocrit 33.3%, platelets 272,000, and MCV normal at 90. His serum creatinine was 1.71 at that time, and his glomerular filtration rate was 39 mL/min. Soluble transferrin receptor assay was normal at 4.3. Serum iron was 62. TIBC was 261. Iron saturation 23.8. Ferritin was 139. So, all his iron studies were within the normal range. EPO level was mildly elevated at 47, red cell folate was normal at 1252, serum folate was normal at more than 22. B12 was 360. Methylmalonic acid assay was normal at 0.25. Haptoglobin was high at 287. Repeat CBC showed hemoglobin 11.2, hematocrit 33, platelets 246,000, white count 7.3. Serum protein electrophoresis showed monoclonal protein of 1.95, but unfortunately, no immunofixation was done. Bone marrow aspiration biopsy done on June 25, 2016, came back positive for lambda restricted plasmocytosis compatible with plasma cell myeloma with 20% to 40% of the core bone marrow biopsy positive for plasma cells. FISH for myeloma came back positive for 4p-, +5, 11q+, -13, 14q-, 16q-, and 17cen+. Skeletal bone survey done on June 25, 2016, did reveal multiple lucencies in the greater trochanter of the left hip and a void lucency seen on the lateral view of the skull in the frontal region. The patient started treatment with CyBorD chemotherapy on July 23, 2016. Patient finished his chemotherapy with CyBorD on June 17, 2017. He started maintenance Revlimid therapy June 2017. HISTORY OF PRESENT ILLNESS Kylee is here today for followup for his multiple myeloma. He continues to have some neuropathy, but overall reports that this is stable. He remains on treatment with gabapentin. He denies any recent fevers, chills, or night sweats. No recent infections. Reports normal appetite and believes his weight is stable. 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 He tells me that his right hand is a little sore and somewhat swollen from holding a hammer and hammering over 145 bricks. He will be following up with his PCP, Tawny Shahid, Nurse Practitioner, next week. He has had some mild edema in his ankles, though remains on daily diuretics. He has not had any nausea or vomiting. No bowel changes, to include no constipation or diarrhea. He was in last week on 09/29/18 for routine labs related to his multiple myeloma. He remains on portable oxygen via nasal cannula. PAST MEDICAL HISTORY 1. Hypercholesterolemia. 2. Emphysema. 3. Tobacco abuse. 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 5. Tinnitus. 6. History of fractured femur. PAST SURGICAL HISTORY 1. Bilateral cataract surgery 2002. 2. In 2014, foreign body removed from the foot. 3. Double hernia repair in 2001. 4. Fracture repair of the femur in 1956. 5. In 2004, he had fracture of the right arm. FAMILY HISTORY Negative for cancer or blood diseases. SOCIAL HISTORY The patient is with four children, three living. 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 He smokes about one pack a day for 60 years. He seldom drinks, once or twice per year. He denies any abuse of illicit drugs. CURRENT MEDICATIONS 1. Lovastatin 20 mg daily. 2. Baby aspirin 81 mg daily. 3. Revlimid 10 mg daily. 4. Lasix 20 mg daily. 5. Men's multivitamin daily. 6. B6 complex daily. 7. Colace twice daily. 8. Vitamin D3 2000 units daily. 9. Tamsulosin 0.4 mg daily. 10. Gabapentin daily. ALLERGIES No known drug allergies. REVIEW OF SYSTEMS CONSTITUTIONAL: Patient denies any recent fevers, chills, or night sweats. No recent infections. Appetite and weight are stable. HEENT: No vision changes. No tinnitus. No abnormal nasal drainage. No dysphagia or odynophagia. No mouth sores. RESPIRATORY: No shortness of breath. He does have some mild dyspnea on exertion. He remains on oxygen 1L nasal cannula. No significant cough, hemoptysis, or pleuritic chest pain. CARDIOVASCULAR: He denies any chest pain. No syncope or presyncope. GASTROINTESTINAL: No abdominal pain, nausea, vomiting, constipation, diarrhea, bright red blood per rectum, or melena. He does manage constipation well with Colace twice daily. Appetite is stable. GENITOURINARY: No dysuria or hematuria. MUSCULOSKELETAL: No focal areas of pain. NEUROLOGIC: He continues to have some neuropathy in his feet bilaterally, but this is managed with gabapentin. HEMATOLOGIC/LYMPHATIC: No free bleeding or easy bruising. SKIN: No skin rash. No abnormal lumps or bumps. No generalized pruritus. PSYCHIATRIC: He denies any severe anxiety, severe depression, suicidal or homicidal ideation. PHYSICAL EXAMINATION VITAL SIGNS: T 98.4, P 61, R 16, BP 100/63, oxygen saturation 95% on 1L via nasal cannula. Currently rates pain level at "0/10." Currently rates fatigue level at "zero." GENERAL: In general, this is a pleasant 77-year-old elderly male who overall appears well nourished and well hydrated and is in no acute distress. HEAD: Atraumatic. Normocephalic. EYES: Sclerae anicteric. ENT, MOUTH: Moist mucous membranes. No mucositis. NECK: Supple. No lymphadenopathy. LUNGS: Clear to auscultation, diminished bases bilaterally. He remains on supplemental oxygen via nasal cannula. No obvious shortness of breath. HEART: Regular rate and rhythm. No ectopy. ABDOMEN: Soft, nontender, nondistended. No organomegaly. EXTREMITIES: He has mild edema up to the ankles bilaterally. Nonpitting edema. No clubbing or cyanosis. He is wearing diabetic socks. NEUROLOGIC: Patient is awake, alert, oriented x3. No gross or focal motor or sensory deficits. PSYCHIATRIC: Mood and affect are appropriate. DERM: No rash. No petechiae or purpura. LABORATORY Labs from 09/29/18: WBC 3.0, ANC 1.2, hemoglobin 14.1, hematocrit 41.9%, platelets 189,000. CMP: Serum creatinine 1.4 per baseline. Previously, this was 1.4 on 08/22/18. Glucose elevated at 113. Uric acid normal at 5.1 with normal calcium of 8.7. LFTs reveal normal bilirubin at 0.8. AST elevated at 42, previously 44 on 08/22/18. ALT elevated at 59, previously 53. Alkaline phosphatase normal at 114. LDH normal at 425. Beta-2 microglobulin elevated at 3.5, up from 3.2 on 08/22/18. IgG 862, normal. IgA 51, low, up from 46 previously. IgM low at 31, down from previous 35. Free kappa light chains elevated up to 3.2, up from 2.49 previously. Free lambda light chains normal at 2.25. Free kappa/lambda ratio normal at 1.44. IMPRESSION AND PLAN This is a pleasant, 77-year-old male with multiple myeloma with IgG lambda monoclonal protein. Initial protein level was 1.9 g/dL. Beta-2 microglobulin was 4.7. [place] free light chain was normal, while lambda free light chain was high at 245. Skeletal bone survey showed multiple lucencies in the greater trochanter of the hip and the skull. Bone marrow aspiration biopsy June 25, 2016, revealed 20% to 40% lambda restricted plasmacytosis consistent with multiple myeloma. FISH for multiple myeloma came back positive for 4p-, +5, 11q+, -13, 14q-, and 17cen+. Patient received chemotherapy with CyBorD on July 23, 2016, and he completed 12 courses June 17, 2017. His IgG lambda monoclonal protein dropped from 1.9. Currently, there is still a faint band in the IgG lambda, noted by serum protein immunoelectrophoresis. Lambda free light chain is currently stable at 2.25. Previously, this was down to 2.09. His kappa lambda ratio remains normal at 1.44. He is also on Xgeva 120 mg subcutaneously, now spaced out to once every three months. He last received this on 08/04/18. He last received this on 08/04/18. He does have chronic obstructive pulmonary disease, currently on supplemental oxygen via nasal cannula. He no longer has any wounds on the extremities, but does have some mild edema to the ankles and remains on diuretics. He follows up with Tawny Shahid. 1. Multiple myeloma, IgG lambda: Patient is currently on Revlimid 10 mg daily on days 1 through 21 on a 28-day cycle. He just initiated his seven-day break for this cycle. We will continue on Revlimid. I assured patient that our office has already re-ordered the drug and showed him confirmation from 09/27/18. 2. Bone metastases. Patient will remain on Xgeva 120 mg subcutaneously every three months. He last received this on 08/04/18 and will next be due for this in October 2018. Patient is aware. 3. I reviewed all recent labs with patient today. 4. He is aware to notify us for any signs of infection, temperature greater than 100.5 degrees Fahrenheit, or for any new bony-type pains. 5. He will continue to follow up with primary care physician regarding his mild lower extremity edema and medical management. 6. Patient will return to clinic in one month for followup and repeat labs as ordered. JYOTSNA
[2018-11-03 12:49] VITALS: BP 107/63
[2018-11-03 12:53] LABS: PLATELET COUNT, AUTOMATED 213 K/uL (150-450)
[2018-11-10 14:52] VITALS: BP 112/72
--- NOTE | 2018-11-10 22:31 | [facility] ONCOLOGY NOTE ---
EVENT DATE: November 10, 2018 DIAGNOSES 1. Multiple myeloma. 2. Normochromic, normocytic anemia. 3. Hypercholesterolemia. 4. Chronic obstructive pulmonary disease. CHIEF COMPLAINT Patient is here today for followup of his multiple myeloma, on maintenance Revlimid therapy. ONCOLOGY HISTORY The patient is a 77-year-old male who has history of emphysema and hypercholesterolemia. He had a normal CBC in July 2014. The patient was found lately to have anemia. His blood count on April 15, 2016, showed white count 7.1, hemoglobin 10.9, hematocrit 33.3%, platelets 272,000, and MCV normal at 90. His serum creatinine was 1.71 at that time, and his glomerular filtration rate was 39 mL/min. Soluble transferrin receptor assay was normal at 4.3. Serum iron was 62. TIBC was 261. Iron saturation 23.8. Ferritin was 139. So, all his iron studies were within the normal range. EPO level was mildly elevated at 47, red cell folate was normal at 1252, serum folate was normal at more than 22. B12 was 360. Methylmalonic acid assay was normal at 0.25. Haptoglobin was high at 287. Repeat CBC showed hemoglobin 11.2, hematocrit 33, platelets 246,000, white count 7.3. Serum protein electrophoresis showed monoclonal protein of 1.95, but unfortunately, no immunofixation was done. Bone marrow aspiration biopsy done on June 25, 2016, came back positive for lambda-restricted plasmocytosis compatible with plasma cell myeloma with 20% to 40% of the core bone marrow biopsy positive for plasma cells. FISH for myeloma came back positive for 4p-, +5, 11q+, -13, 14q-, 16q-, and 17cen+. Skeletal bone survey done on June 25, 2016, did reveal multiple lucencies in the greater trochanter of the left hip and a void lucency seen on the lateral view of the skull in the frontal region. The patient started treatment with CyBorD chemotherapy on July 23, 2016. Patient finished his chemotherapy with CyBorD on June 17, 2017, and he started maintenance Revlimid therapy June 2017. HISTORY OF PRESENT ILLNESS Patient is here today for followup of his multiple myeloma. He is doing fine currently. Apart from having some neuropathy in his toes, patient does not have any other problem. PAST MEDICAL HISTORY 1. Hypercholesterolemia. 2. Emphysema. 3. Tobacco abuse. 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 5. Tinnitus. 6. History of fractured femur. PAST SURGICAL HISTORY 1. Bilateral cataract surgery 2002. 2. In 2014, foreign body removed from the foot. 3. Double hernia repair in 2001. 4. Fracture repair of the femur in 1956. 5. In 2004, he had fracture of the right arm. FAMILY HISTORY Negative for cancer or blood diseases. SOCIAL HISTORY The patient is with four children, three living. 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 He smokes about one pack a day for 60 years. He seldom drinks, once or twice per year. He denies any abuse of illicit drugs. CURRENT MEDICATIONS 1. Lovastatin 20 mg daily. 2. Baby aspirin 81 mg daily. 3. Revlimid 10 mg daily. ALLERGIES No known drug allergies. REVIEW OF SYSTEMS CONSTITUTIONAL: No appetite or weight change. No fever, chills or sweating. No recent infection. HEENT: Ears: No tinnitus or hearing problem. Nose: No nasal discharge or epistaxis. Throat: No sore throat or mouth ulcers. Eyes: No diplopia or visual changes. RESPIRATORY: No shortness of breath. No cough, expectoration or hemoptysis. CARDIOVASCULAR: No chest pain, orthopnea, or paroxysmal nocturnal dyspnea (PND). No edema. No palpitations. GASTROINTESTINAL: No nausea or vomiting. No diarrhea or constipation. No change in bowel movements. No heartburn or swallowing difficulties. No abdominal pain. No jaundice. No hematemesis, melena or rectal bleeding. GENITOURINARY: No hematuria or dysuria. MUSCULOSKELETAL: No pain in the muscles, joints or bones. NEUROLOGICAL: He has numbness in his toes. HEMATOLOGIC/LYMPHATIC: No bleeding or easy bruising. No weakness or fatigue. No enlarged lymph nodes. SKIN: No skin rash or lumps. PSYCHIATRIC: No anxiety or depression. PHYSICAL EXAMINATION GENERAL: Looks stable. Well-developed, well-nourished, and in no acute distress. VITAL SIGNS: Blood pressure 112/72, pulse 76 per minute, respirations 16 per minute, temperature 97, pulse oximetry 94% on 1L of oxygen. HEENT: Head: Atraumatic. No sinus tenderness to palpation. Eyes: No icterus or conjunctivitis. Mouth and throat: No oral thrush or mucositis. NECK: Supple. No cervical or supraclavicular lymphadenopathy. LUNGS: Clear to auscultation and percussion bilaterally. HEART: Regular rate and rhythm. No gallops, murmurs, clicks or rubs. ABDOMEN: Soft and lax. No tenderness. No hepatosplenomegaly. No masses. EXTREMITIES: No cyanosis, clubbing or edema. LYMPHATICS: No peripheral lymphadenopathy. NEUROLOGICAL: Conscious, alert and oriented times three. No focal motor or sensory deficits. PSYCHIATRIC: Mood and affect appear normal. SKIN: No skin rash, bruise or purpuric eruption. DIAGNOSTIC DATA CBC showed white count 3.6, hemoglobin 14.1, hematocrit 42, platelets 213,000. ANC was 1.4. Chem panel totally normal except BUN 27, creatinine 1.4, magnesium 2.5, ALT 49. Other parameters are normal. Beta-2 microglobulin is 3.1. Serum protein electrophoresis showed a faint band in IgG lambda, suggestive of a specific immune response or early monoclonal protein, which is stable. ASSESSMENT 1. Multiple myeloma with IgG lambda monoclonal protein. Initial protein level was 1.9 g/dL. Beta-2 microglobulin was 4.7. [place] free light chain was normal, but lambda free light chain was 245. Skeletal bone survey showed multiple lucencies in the greater trochanter of the hip and the skull. Bone marrow aspiration biopsy June 25, 2016, revealed 20% to 40% lambda-restricted plasmacytosis consistent with multiple myeloma. FISH for multiple myeloma came back positive for 4p-, +5, 11q+, -13, 14q-, and 17cen+. Patient received chemotherapy with CyBorD on July 23, 2016, and he completed 12 courses June 17, 2017. His IgG lambda monoclonal protein dropped from 1.9, and currently there is a faint band in the IgG lambda by serum protein immunoelectrophoresis. I am planning to continue same treatment with Revlimid 10 mg daily for three weeks and one week off, and I will see him in a month with CBC, chem panel, LDH, uric acid, myeloma profile. Patient receives his Xgeva every three months this visit. I am planning to repeat the shot in three months, which will be January 2019. 2. Chronic obstructive pulmonary disease, on home oxygen. PLAN 1. Revlimid 10 mg daily for three weeks, and one week off. 2. Xgeva 120 mg subcutaneously every three months. Patient will be due in January 2019. 3. Patient to contact us for any new concerns or complaints. 4. Patient to return in one month with CBC, chem panel, LDH, uric acid, and myeloma profile. MTDD
[2018-12-05 13:45] VITALS: BP 114/66
[2018-12-05 14:06] LABS: PLATELET COUNT, AUTOMATED 209 K/uL (150-450)
[2018-12-09 14:41] VITALS: BP 102/63
--- NOTE | 2018-12-09 19:13 | ONCOLOGY FOLLOW UP NOTE ---
EVENT DATE: December 09, 2018 DIAGNOSES 1. Multiple myeloma. 2. Normochromic, normocytic anemia. 3. Hypercholesterolemia. 4. Chronic obstructive pulmonary disease. CHIEF COMPLAINT Patient is here today for followup of his multiple myeloma on maintenance Revlimid therapy. ONCOLOGY HISTORY The patient is a 78-year-old male who has history of emphysema and hypercholesterolemia. He had a normal CBC in July 2014. The patient was found lately to have anemia. His blood count on April 15, 2016, showed white count 7.1, hemoglobin 10.9, hematocrit 33.3%, platelets 272,000, and MCV normal at 90. His serum creatinine was 1.71 at that time, and his glomerular filtration rate was 39 mL/min. Soluble transferrin receptor assay was normal at 4.3. Serum iron was 62. TIBC was 261. Iron saturation 23.8. Ferritin was 139. So, all his iron studies were within the normal range. EPO level was mildly elevated at 47, red cell folate was normal at 1252, serum folate was normal at more than 22. B12 was 360. Methylmalonic acid assay was normal at 0.25. Haptoglobin was high at 287. Repeat CBC showed hemoglobin 11.2, hematocrit 33, platelets 246,000, white count 7.3. Serum protein electrophoresis showed monoclonal protein of 1.95, but unfortunately, no immunofixation was done. Bone marrow aspiration biopsy done on June 25, 2016, came back positive for lambda-restricted plasmocytosis compatible with plasma cell myeloma with 20% to 40% of the core bone marrow biopsy positive for plasma cells. FISH for myeloma came back positive for 4p-, +5, 11q+, -13, 14q-, 16q-, and 17cen+. Skeletal bone survey done on June 25, 2016, did reveal multiple lucencies in the greater trochanter of the left hip and a void lucency seen on the lateral view of the skull in the frontal region. The patient started treatment with CyBorD chemotherapy on July 23, 2016. Patient finished his chemotherapy with CyBorD on June 17, 2017, and he started maintenance Revlimid therapy June 2017. HISTORY OF PRESENT ILLNESS Patient is here today for followup of his multiple myeloma. He is doing fine currently, and he is totally asymptomatic. Patient denies any constitutional symptoms. PAST MEDICAL HISTORY 1. Hypercholesterolemia. 2. Emphysema. 3. Tobacco abuse. 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 5. Tinnitus. 6. History of fractured femur. PAST SURGICAL HISTORY 1. Bilateral cataract surgery 2002. 2. In 2014, foreign body removed from the foot. 3. Double hernia repair in 2001. 4. Fracture repair of the femur in 1956. 5. In 2004, he had fracture of the right arm. FAMILY HISTORY Negative for cancer or blood diseases. SOCIAL HISTORY The patient is with four children, three living. 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 He smokes about one pack a day for 60 years. He seldom drinks, once or twice per year. He denies any abuse of illicit drugs. CURRENT MEDICATIONS 1. Lovastatin 20 mg daily. 2. Baby aspirin 81 mg daily. 3. Revlimid 10 mg daily. ALLERGIES No known drug allergies. REVIEW OF SYSTEMS CONSTITUTIONAL: No appetite or weight change. No fever, chills, or sweating. No recent infection. HEENT: Ears: No tinnitus or hearing problem. Nose: No nasal discharge or epistaxis. Throat: No sore throat or mouth ulcers. Eyes: No diplopia or visual changes. RESPIRATORY: No shortness of breath. No cough, expectoration, or hemoptysis. CARDIOVASCULAR: No chest pain, orthopnea, or paroxysmal nocturnal dyspnea (PND). No edema. No palpitations. GASTROINTESTINAL: No nausea or vomiting. No diarrhea or constipation. No change in bowel movements. No heartburn or swallowing difficulties. No abdominal pain. No jaundice. No hematemesis, melena, or rectal bleeding. GENITOURINARY: No hematuria or dysuria. MUSCULOSKELETAL: No pain in the muscles, joints, or bones. NEUROLOGIC: No tingling or numbness in the hands or feet. No headaches or convulsions. HEMATOLOGIC/LYMPHATIC: No bleeding or easy bruising. No weakness or fatigue. No enlarged lymph nodes. SKIN: No skin rash or lumps. PSYCHIATRIC: No anxiety or depression. PHYSICAL EXAMINATION GENERAL: Looks stable. Well developed, well nourished, and in no acute distress. VITAL SIGNS: Blood pressure 102/63, pulse 60 per minute, respirations 16 per minute, temperature 97, pulse ox 95% on 1L oxygen. HEENT: Head: Atraumatic. No sinus tenderness to palpation. Eyes: No icterus or conjunctivitis. Mouth and Throat: No oral thrush or mucositis. NECK: Supple. No cervical or supraclavicular lymphadenopathy. LUNGS: Clear to auscultation and percussion bilaterally. HEART: Regular rate and rhythm. No gallops, murmurs, clicks, or rubs. ABDOMEN: Soft and lax. No tenderness. No hepatosplenomegaly. No masses. EXTREMITIES: No cyanosis, clubbing, or edema. LYMPHATICS: No peripheral lymphadenopathy. NEUROLOGIC: Conscious, alert, and oriented times three. No focal motor or sensory deficits. PSYCHIATRIC: Mood and affect appear normal. SKIN: No skin rash, bruise, or purpuric eruption. DIAGNOSTIC DATA CBC showed white count 3.6, hemoglobin 14.1, hematocrit 41.6, platelets 209,000. ANC 1.7. Chem panel normal except BUN 23, creatinine 1.4, AST 41. Beta-2 microglobulin is 3. Immunoelectrophoresis shows a faint band in the IgG lambda. Ackworth free light chain is 2.28, which is trending down, and lambda free light chain is normal at 1.9. Ackworth to lambda free light chain ratio is normal at 1.2. IgG is normal at 848. IgA is 57. IgM is 14. ASSESSMENT 1. Multiple myeloma with IgG lambda monoclonal protein. Initial protein level was 1.9 g/dL. Beta-2 microglobulin was 4.7. Ackworth free light chain was normal, but lambda free light chain was 245. Skeletal bone survey showed multiple lucencies in the greater trochanter of the hip and the skull. Bone marrow aspiration biopsy done June 25, 2016, revealed 20% to 40% lambda-restricted plasmacytosis consistent with multiple myeloma. FISH for multiple myeloma came back positive for 4p-, +5, 11q+, -13, 14q-, and 17cen+. Patient received chemotherapy with CyBorD on July 23, 2016, and he completed 12 courses June 17, 2017. His IgG lambda monoclonal protein dropped from 1.9, and currently there is a faint band in the IgG lambda by serum protein immunoelectrophoresis. His lambda free light chain which was initially 245 is currently normal at 1.9. I am planning to continue followup. I will see him again in one month with CBC, chemistry panel, LDH, uric acid, and myeloma profile. Patient will continue Revlimid 10 mg daily for three weeks out of four-week cycle, and he will continue Xgeva 120 mg subcutaneously every three months, which will be next January 2019. 2. Chronic obstructive pulmonary disease, on home oxygen. PLAN 1. Revlimid 10 mg daily for three weeks and one week off. 2. Xgeva 120 mg subcutaneously every three months, due in January 2019. 3. Patient to contact us for any new concern or complaints. 4. Patient to return in one month with CBC, chem panel, LDH, uric acid, and myeloma profile. MTDD
[~2018-12-30 14:12] MED LIST changes: +DENOSUMAB 120 MG/1.7 ML VIAL SUBQ ONE
[2018-12-30 14:38] LABS: PLATELET COUNT, AUTOMATED 225 K/uL (150-450)
[2018-12-30 15:10] VITALS: BP 100/60
== END 2019-01-03 ==
LOC: SPU 14:12
PROVIDERS: ATTEND Internal Medicine Hematology
DX: C90.00 Multiple myeloma not having achieved remission (principal); C79.51 Secondary malignant neoplasm of bone; F17.210 Nicotine dependence, cigarettes, uncomplicated; D64.9 Anemia, unspecified; E78.00 Pure hypercholesterolemia, unspecified; J44.9 Chronic obstructive pulmonary disease, unspecified; Z79.899 Other long term (current) drug therapy; Z92.21 Personal history of antineoplastic chemotherapy
CPT/HCPCS: 36415; 81001; 82232; 82306; 82570; 83615; 83735; 83883; 84100; 84156; 84550; 85025; 86334; 96372; G0463; J0897; 82040; 82247; 82310; 82374; 82435; 82565; 82947; 84075; 84132; 84155; 84295; 84450; 84460; 84520; 99212; 99213

== ENCOUNTER → 2018-12-30 | Outpatient (CLI) | payer MEDICARE, OTHER ==
[2017-12-26 12:07] VITALS: BMI 24.8
== END ==
LOC: LAB 13:49
PROVIDERS: ATTEND Psychiatry & Neurology Neurology
DX: R41.3 Other amnesia (principal)
CPT/HCPCS: 36415; 82306; 82607; 82746; 84439; 84443

== ENCOUNTER → 2019-01-02 | Outpatient (CLI) | payer MEDICARE, OTHER ==
[2017-12-26 12:07] VITALS: BMI 24.8
[~2019-01-02] MED LIST changes: -DENOSUMAB 120 MG/1.7 ML VIAL SUBQ ONE
--- NOTE | 2019-01-02 14:14 | RADIOLOGY IMAGING REPORT ---
FACILITY: [facility] - [place] PATIENT NAME: Williams Munoz : 1940 MR: [id number] V: [id number] EXAM DATE: ORDERING PHYSICIAN: KAREN HOPE TECHNOLOGIST: Location: [facility] - [place] Patient: Williams Munoz : 1940 Visit/Account:[id number] Date of Sevice: 01/02/2019 Examination: MR brain without contrast History: Memory loss Comparison: Head CT there is 2215 Technique: Multiplane MR imaging was performed through the brain without contrast. Findings: Diffusion: None Ventricles: Unchanged dilated third ventricle measures 1.9 cm transverse. Unchanged dilated right gre ater than left ventricular atria measures 2.9 cm transverse on the right. Midline shift: None Extraaxial fluid: Unchanged chronic expansion of the right medial frontal parietal subarachnoid space versus small chronic subdural hygroma in this area. Unchanged benign arachnoid cyst in the medial ri ght parietal region adjacent to the midline falx measures 3.3 cm AP by 2.7 cm craniocaudad. Midline craniocervical structures: Congenitally absent corpus callosum. Parenchyma: Unchanged at least mild parenchymal atrophy. Greater than 10 punctate to small white dre er high signal foci. Vascular flow voids: Normal Orbits and paranasal sinuses: Cataract postsurgical change. Other: No significant additional finding. Impression: 1. No acute finding. 2. Congenital agenesis of the corpus callosum. 3. Unchanged dilated lateral and third ventricles which may reflect ex vacuo dilatation related to pa renchymal atrophy. Normal pressure hydrocephalus cannot be excluded. 4. Mild chronic small vessel ischemic change. 5. Additional unchanged chronic findings as described above. Report Dictated By: Keron Rodriguez MD at 01/02/2019 1:59 PM Report E-Signed By: Keron Rodriguez MD at 01/02/2019 2:07 PM [id number]
== END ==
LOC: MRI 07:17
PROVIDERS: ATTEND Psychiatry & Neurology Neurology
DX: Q04.0 Congenital malformations of corpus callosum (principal); I67.82 Cerebral ischemia
CPT/HCPCS: 70551